=== PATIENT | female | born 1940 | race Caucasian/White ===

== ENCOUNTER 2018-09-18 18:23 | Emergency (ER) | payer MEDICARE, OTHER ==
[2018-09-18] MEDS ORDERED: Sodium Chloride 0.9% 10 ML Syringe FLUSH PRN (18:35)
[2018-09-18] MEDS ORDERED: methylPREDNISolone Sodium Succinate 125 MG/2 ML SDV IVPUSH ONE (18:36)
[2018-09-18] MEDS ORDERED: Albuterol/Ipratropium 3.0-0.5 MG/3 ML Neb Soln NEB ONE (18:39)
--- NOTE | 2018-09-18 19:02 | EDM.PDOC ---
ED HPI GENERAL MEDICAL PROBLEM - General Chief Complaint: Respiratory Problem Stated Complaint: ASTHMA ACTING UP Time Seen by Provider: 09/18/18 18:30 Source of Information: Reports: Patient History Limitations: Reports: No Limitations - History of Present Illness INITIAL COMMENTS - FREE TEXT/NARRATIVE: Pt. presents to ER with complaints of increased shortness of breath. Pt. states that she has a history of asthma. She states that she has been experiencing chest congestion for the past several days. She states that she has not bee experiencing any chest pain. Denies any fever or chills. No nausea, vomiting, or diarrhea. She states that she has not been using her rescue inhaler because she forgot. She states that she has a cough but it is non-productive. Onset: Today Onset Date: 09/18/18 Location: Reports: Chest - Related Data Allergies Allergy/AdvReac Type Severity Reaction Status Date / Time No Known Drug Allergies Allergy Other Verified 09/18/18 19:25 pseudoephedrine HCl Allergy Fainting Verified 09/18/18 19:25 [From Mar-D] aspirin [From Aggrenox] AdvReac Vomiting Verified 09/18/18 19:25 dipyridamole [From Aggrenox] AdvReac Vomiting Verified 09/18/18 19:25 fexofenadine HCl AdvReac Fainting Verified 09/18/18 19:25 [From Mar-D] Home Meds: Home Meds Albuterol Sulfate [Proair Respiclick] 2 puff INH Q4H PRN 02/09/15 [History] Albuterol [Proventil Neb Soln] 2.5 mg NEB Q6HRRT PRN 02/09/15 [History] Aspirin [Ecotrin] 325 mg PO DAILY 02/09/15 [History] Codeine/guaiFENesin [Robitussin AC] 5 ml PO Q4H PRN 02/09/15 [History] Enalapril [Vasotec] 20 mg PO DAILY 02/09/15 [History] Hydrochlorothiazide 25 mg PO DAILY 02/09/15 [History] Loratadine [Claritin] 10 mg PO DAILY PRN 02/09/15 [History] Montelukast [Singulair] 10 mg PO BEDTIME 02/09/15 [History] Multivitamin [Multi-Vitamin Daily] 1 tab PO DAILY 02/09/15 [History] Oxybutynin Chloride [Oxybutynin Chloride ER] 30 mg PO BEDTIME 02/09/15 [History] Simvastatin 10 mg PO BEDTIME 02/09/15 [History] predniSONE [Prednisone] 20 mg PO DAILY 02/09/15 [History] traMADol [Ultram] 50 mg PO Q6H PRN 02/09/15 [History] Acetaminophen 650 mg PO Q4H PRN 02/12/15 [History] Docusate Sodium [Colace] 200 mg PO BEDTIME 02/12/15 [History] Enoxaparin Sodium 40 mg SQ DAILY 02/12/15 [History] LORazepam 0.5 mg PO Q6H PRN 02/12/15 [History] Non-Formulary Medication [NF Drug] 1 puff INH BID 02/12/15 [History] Ondansetron [Zofran ODT] 4 mg PO Q6H PRN 02/12/15 [History] Sennosides [Senna] 8.6 mg PO BID PRN 02/12/15 [History] Sennosides [Senna] 8.6 mg PO BID PRN #0 tablet 02/12/15 [Rx] HYDROmorphone [Dilaudid] 2 mg PO Q8HR PRN #21 tab 02/19/15 [Rx] Past Medical History Respiratory History: Reports: Asthma Other Genitourinary History: overactive bladder Other Musculoskeletal History: dx with bursitis and arthritis to hip - Past Surgical History Other Musculoskeletal Surgeries/Procedures:: left forearm surgery s/p fracture Social & Family History - Tobacco Use Smoking Status *Q: Never Smoker ED ROS GENERAL - Review of Systems Review Of Systems: See Below Constitutional: Reports: No Symptoms HEENT: Reports: No Symptoms Respiratory: Reports: Shortness of Breath, Wheezing Cardiovascular: Reports: No Symptoms Endocrine: Reports: No Symptoms GI/Abdominal: Reports: No Symptoms : Reports: No Symptoms Musculoskeletal: Reports: No Symptoms Skin: Reports: No Symptoms Neurological: Reports: No Symptoms Psychiatric: Reports: No Symptoms Hematologic/Lymphatic: Reports: No Symptoms Immunologic: Reports: No Symptoms ED EXAM, GENERAL - Physical Exam Exam: See Below Exam Limited By: No Limitations General Appearance: Alert, WD/WN, No Apparent Distress Nose: Normal Inspection, Normal Mucosa, No Blood Throat/Mouth: Normal Inspection, Normal Lips, Normal Teeth, Normal Gums, Normal Oropharynx, Normal Voice, No Airway Compromise Head: Atraumatic, Normocephalic Neck: Normal Inspection, Supple, Non-Tender, Full Range of Motion Respiratory/Chest: No Respiratory Distress, Decreased Breath Sounds, Crackles, Wheezing Cardiovascular: Normal Peripheral Pulses, Regular Rate, Rhythm, No Edema, No Gallop, No JVD, No Murmur, No Rub GI/Abdominal: Normal Bowel Sounds, Soft, Non-Tender, No Organomegaly, No Distention, No Abnormal Bruit, No Mass, Pelvis Stable (Female) Exam: Deferred Rectal (Female) Exam: Deferred Back Exam: Normal Inspection, Full Range of Motion Extremities: Normal Inspection, Normal Range of Motion, Non-Tender, No Pedal Edema, Normal Capillary Refill Neurological: Alert, Oriented, CN II-XII Intact, Normal Cognition, Normal Gait, Normal Reflexes, No Motor/Sensory Deficits Psychiatric: Normal Affect, Normal Mood Skin Exam: Warm, Dry, Intact, Normal Color, No Rash Lymphatic: No Adenopathy Course - Vital Signs Last Recorded V/S: Last Vital Signs Temp 37.1 C 09/18/18 18:30 Pulse 92 09/18/18 19:25 Resp 20 09/18/18 19:25 BP 129/84 09/18/18 19:25 Pulse Ox 91 L 09/18/18 19:25 - Orders/Labs/Meds Orders: Active Orders 24 hr Category Date Time Status Peripheral IV Insertion Adult [OM.PC] Routine Oth 09/18/18 18:35 Ordered Labs: Laboratory Tests 09/18/18 09/18/18 09/18/18 Range/Units 19:05 19:05 19:05 WBC 8.1 (4.0-10.0) x10^3/uL RBC 3.97 L (4.00-5.50) x10^6/uL Hgb 14.0 D (12.0-16.0) g/dL Hct 41.6 (33.0-47.0) % MCV 104.8 H D (78.0-93.0) fL MCH 35.3 H (26.0-32.0) pg MCHC 33.7 (32.0-36.0) g/dL RDW Coeff of Andres 12.3 (10.0-15.0) % Plt Count 438 H D (130-400) x10^3/uL Add Manual Diff Yes Neutrophils % (Manual) 49 L (50-80) % Band Neutrophils % 5 (0-6) % Lymphocytes % (Manual) 23 L (25-50) % Monocytes % (Manual) 18 H (2-11) % Eosinophils % (Manual) 3 (0-4) % Basophils % (Manual) 1 (0-1) % Blast Cells % 1 H (0) % Platelet Estimate Adequate Macrocytosis 1+ slight H PT 9.6 L (10.0-12.8) SEC INR 0.8 L (2.0-3.5) Sodium 132 L (136-145) mmol/L Potassium 4.0 (3.5-5.1) mmol/L Chloride 96 L (98-107) mmol/L Carbon Dioxide 27 (21-32) mmol/L Anion Gap 13.0 (10-20) mmol/L BUN 19 H (7-18) mg/dL Creatinine 0.7 (0.55-1.02) mg/dL Est Cr Clr Drug Dosing 50.70 mL/min Estimated GFR (MDRD) > 60 Glucose 83 (74-106) mg/dL Calcium 9.2 (8.5-10.1) mg/dL Corrected Calcium 9.60 (8.5-10.1) mg/dL Total Bilirubin 0.4 (0.2-1.0) mg/dL AST 16 (15-37) U/L ALT 20 (14-59) U/L Alkaline Phosphatase 72 (46-116) U/L Total Protein 7.7 (6.4-8.2) g/dL Albumin 3.5 (3.4-5.0) g/dL Globulin 4.2 Albumin/Globulin Ratio 0.83 Meds: Medications Discontinued Medications Generic Name Dose Route Start Last Admin Trade Name Freq PRN Reason Stop Dose Admin Albuterol/Ipratropium 3 ml 09/18/18 18:39 09/18/18 18:40 Duoneb 3.0-0.5 Mg/3 Ml NEB 09/18/18 18:40 3 ml ONETIME ONE Administration Doxycycline Monohydrate Confirm 09/18/18 19:50 09/18/18 19:56 Take Home: Doxycycline 100 Mg, 4 Tab Pack Administered 09/18/18 19:51 Not Given Dose 1 packet .ROUTE .STK-MED ONE Doxycycline Monohydrate 1 packet 09/18/18 19:37 09/18/18 19:56 Take Home: Doxycycline 100 Mg, 4 Tab Pack PO 09/18/18 19:38 1 packet ONETIME ONE Administration Methylprednisolone Sodium Succinate 125 mg 09/18/18 18:36 09/18/18 18:41 Solu-Medrol IVPUSH 09/18/18 18:37 125 mg ONETIME ONE Administration Sodium Chloride 10 ml 09/18/18 18:35 Saline Flush FLUSH ASDIRECTED PRN Keep Vein Open - Radiology Interpretation Free Text/Narrative:: No obvious infiltrate or acute pathology noted. Departure - Departure Time of Disposition: 19:42 Disposition: Home, Self-Care 01 Clinical Impression: COPD exacerbation, Bronchitis - Discharge Information Instructions: Chronic Obstructive Pulmonary Disease Exacerbation, [id number] Referrals: Min Manrique MD [Primary Care Provider] - Forms: ED Department Discharge Additional Instructions: Albuterol inhaler 2 puffs every 4-6 hours as needed for breathing trouble Prednisone 20mg 2 tabs every day for 5 days Doxycycline 100mg 1 tab twice daily for 10 days Recheck in clinic in 10-14 days, sooner if not gradually improving. - My Orders Last 24 Hours: My Active Orders 09/18/18 18:35 Peripheral IV Insertion Adult [OM.PC] Routine - Assessment/Plan Last 24 Hours: My Active Orders 09/18/18 18:35 Peripheral IV Insertion Adult [OM.PC] Routine Plan: Albuterol inhaler 2 puffs every 4-6 hours as needed for breathing trouble Prednisone 20mg 2 tabs every day for 5 days Doxycycline 100mg 1 tab twice daily for 10 days Recheck in clinic in 10-14 days, sooner if not gradually improving.
--- NOTE | 2018-09-18 19:16 | CR ---
[id number] RAD/RAD Chest PA or AP 1V EXAM: FRONTAL CHEST INDICATION: Shortness of breath. COMPARISON: None. DISCUSSION: Hyperinflation suggests underlying chronic obstructive pulmonary disease. Mild atelectasis or scarring is suggested in the lung bases with no definite infiltrates. The heart is at upper limits of normal for size with borderline central vascular congestion. IMPRESSION: 1. Cardiomegaly with early central vascular congestion suggested. 2. Chronic obstructive pulmonary disease and mild basilar atelectasis or scarring with no definite infiltrates. Todd Monahan MD 09/18/18 0727 Thank you for allowing us to participate in the care of your patient.
[2018-09-18 19:29] VITALS: BP 129/84
[2018-09-18 19:33] LABS: CHLORIDE,CL 96 mmol/L (98-107); SODIUM,NA 132 mmol/L (136-145)
[2018-09-18] MEDS ORDERED: Take Home: Doxycycline 100 MG Tab, 4 Tab Pack PO ONE (19:37)
[2018-09-18] MEDS ORDERED: Take Home: Doxycycline 100 MG Tab, 4 Tab Pack ONE (19:50)
== END 2018-09-18 20:00 | disposition home or self-care (01) ==
LOC: VM.ED 18:23
DX: J44.1 Chronic obstructive pulmonary disease with (acute) exacerbation (principal); J40 Bronchitis, not specified as acute or chronic; Z79.82 Long term (current) use of aspirin; Z79.899 Other long term (current) drug therapy; Z88.8 Allergy status to other drugs, medicaments and biological substances; Z88.6 Allergy status to analgesic agent
CPT/HCPCS: 36415; 71045; 80053; 85025; 85610; 94640; 96374; 99284; 99285; A9270; J2930; J7620-GY

== ENCOUNTER 2019-12-18 11:07 | Emergency (ER) | payer MEDICARE, OTHER ==
[2019-12-18] MEDS ORDERED: Sodium Chloride 0.9% 10 ML Syringe FLUSH PRN (11:19)
[2019-12-18] MEDS ORDERED: fentaNYL 100 MCG/2 ML SDV IVPUSH ONE ×2 (11:20→12:23)
--- NOTE | 2019-12-18 11:26 | EDM.PDOC ---
ED HPI GENERAL MEDICAL PROBLEM - General Time Seen by Provider: 12/18/19 11:14 Source of Information: Reports: Patient History Limitations: Reports: No Limitations - History of Present Illness INITIAL COMMENTS - FREE TEXT/NARRATIVE: Pt. presents to ER with complaints of L hip pain. Pt. states that she was apply Vicks to her at approx. 0800 this AM, and she slipped on a shoe on the floor, falling into her L hip. She denies any weakness, dizziness, chest pain, shortness of breath, lightheadedness or other symptoms prior to this purely mechanical fall. Denies striking her head or trauma elsewhere since the fall. Denies any neck or back pain. Pt. states that she is unable to bear weight on the L leg. She states that the pain is located primarily on the lateral aspect of the hip. Pt. denies any cough, congestion, sore throat, fever, rhinorrhea, diarrhea, or other signs of covid 19. Onset: Today Onset Time: 08:00 Location: Reports: Lower Extremity, Left Left Hip Pain Score (Numeric/FACES): 7 - Related Data Allergies Allergy/AdvReac Type Severity Reaction Status Date / Time pseudoephedrine HCl Allergy Fainting Verified 12/18/19 11:42 [From Mar-D] aspirin [From Aggrenox] AdvReac Vomiting Verified 12/18/19 11:42 dipyridamole [From Aggrenox] AdvReac Vomiting Verified 12/18/19 11:42 fexofenadine HCl AdvReac Fainting Verified 12/18/19 11:42 [From Mar-D] Home Meds: Home Meds Aspirin [Ecotrin] 325 mg PO DAILY 02/09/15 [History] Enalapril [Vasotec] 20 mg PO DAILY 02/09/15 [History] Hydrochlorothiazide 25 mg PO DAILY 02/09/15 [History] Loratadine [Claritin] 10 mg PO DAILY PRN 02/09/15 [History] Montelukast [Singulair] 10 mg PO BEDTIME 02/09/15 [History] Multivitamin [Multi-Vitamin Daily] 1 tab PO DAILY 02/09/15 [History] Simvastatin 10 mg PO BEDTIME 02/09/15 [History] Fluticasone/Salmeterol [Advair HFA 230-21 MCG] 1 - 2 puff IH BID 12/18/19 [History] Past Medical History Respiratory History: Reports: Asthma Other Genitourinary History: overactive bladder Other Musculoskeletal History: dx with bursitis and arthritis to hip - Past Surgical History Other Musculoskeletal Surgeries/Procedures:: left forearm surgery s/p fracture ED ROS GENERAL - Review of Systems Review Of Systems: See Below Constitutional: Reports: No Symptoms HEENT: Reports: No Symptoms Respiratory: Reports: No Symptoms Cardiovascular: Reports: No Symptoms Endocrine: Reports: No Symptoms GI/Abdominal: Reports: No Symptoms : Reports: No Symptoms Musculoskeletal: Reports: Joint Pain (L hip) Skin: Reports: No Symptoms Neurological: Reports: No Symptoms Psychiatric: Reports: No Symptoms Hematologic/Lymphatic: Reports: No Symptoms Immunologic: Reports: No Symptoms ED EXAM, GENERAL - Physical Exam Exam: See Below Exam Limited By: No Limitations General Appearance: Alert, WD/WN, No Apparent Distress Eye Exam: Bilateral Eye: EOMI, PERRL Head: Atraumatic, Normocephalic Neck: Normal Inspection, Supple, Non-Tender, Full Range of Motion Respiratory/Chest: No Respiratory Distress, Lungs Clear, Normal Breath Sounds, No Accessory Muscle Use, Chest Non-Tender Cardiovascular: Normal Peripheral Pulses, Regular Rate, Rhythm, No Edema, No Gallop, No JVD, Systolic Murmur Peripheral Pulses: 3+: Posterior Tibial (L), Posterior Tibial (R), 4+: Radial (L) GI/Abdominal: Soft, Non-Tender, No Mass (Female) Exam: Deferred Rectal (Female) Exam: Deferred Back Exam: Normal Inspection, Full Range of Motion Extremities: Limited Range of Motion, Other (pain with flexion of the L hip. Pt. unable to fully straighten extremity. No obvious crepitus noted.) Neurological: Alert, Oriented, CN II-XII Intact, No Motor/Sensory Deficits Psychiatric: Normal Affect, Normal Mood Skin Exam: Warm, Dry, Intact, Normal Color Lymphatic: No Adenopathy Course - Vital Signs Last Recorded V/S: Last Vital Signs Temp 36.6 C 12/18/19 11:10 Pulse 80 12/18/19 12:58 Resp 16 12/18/19 12:58 BP 142/78 H 12/18/19 12:58 Pulse Ox 97 12/18/19 12:58 - Orders/Labs/Meds Orders: Active Orders 24 hr Category Date Time Status Sodium Chloride 0.9% [Saline Flush] Med 12/18/19 11:19 Active 10 ml FLUSH ASDIRECTED PRN Peripheral IV Insertion Adult [OM.PC] Routine Oth 12/18/19 11:20 Ordered Medication Orders Sodium Chloride (Saline Flush) 10 ml FLUSH ASDIRECTED PRN PRN Reason: Keep Vein Open Last Admin: 12/18/19 11:30 Dose: 10 ml Documented by: CHELSEY Labs: Laboratory Tests 12/18/19 12/18/19 12/18/19 Range/Units 11:30 12:09 12:09 WBC 14.8 H (4.0-10.0) x10^3/uL RBC 3.73 L (4.00-5.50) x10^6/uL Hgb 13.5 (12.0-16.0) g/dL Hct 38.3 (33.0-47.0) % MCV 102.7 H (78.0-93.0) fL MCH 36.2 H (26.0-32.0) pg MCHC 35.2 (32.0-36.0) g/dL RDW Coeff of Andres 12.4 (10.0-15.0) % Plt Count 149 D (130-400) x10^3/uL Add Manual Diff Yes Neutrophils % (Manual) 61 (50-80) % Band Neutrophils % 12 H (0-6) % Lymphocytes % (Manual) 11 L (25-50) % Monocytes % (Manual) 13 H (2-11) % Metamyelocytes % 2 H (0) % Blast Cells % 1 H (0) % Platelet Estimate Adequate PT 10.1 (9.5-12.3) SEC INR 0.9 L (2.0-3.5) Sodium (136-145) mmol/L Potassium (3.5-5.1) mmol/L Chloride (98-107) mmol/L Carbon Dioxide (21-32) mmol/L Anion Gap (10-20) mmol/L BUN (7-18) mg/dL Creatinine (0.55-1.02) mg/dL Est Cr Clr Drug Dosing mL/min Estimated GFR (MDRD) Glucose (74-106) mg/dL Calcium (8.5-10.1) mg/dL Corrected Calcium (8.5-10.1) mg/dL Total Bilirubin (0.2-1.0) mg/dL AST (15-37) U/L ALT (14-59) U/L Alkaline Phosphatase (46-116) U/L Total Protein (6.4-8.2) g/dL Albumin (3.4-5.0) g/dL Globulin Albumin/Globulin Ratio SARS CoV-2 RNA Rapid INDU Negative (NEGATIVE) 12/18/19 Range/Units 12:09 WBC (4.0-10.0) x10^3/uL RBC (4.00-5.50) x10^6/uL Hgb (12.0-16.0) g/dL Hct (33.0-47.0) % MCV (78.0-93.0) fL MCH (26.0-32.0) pg MCHC (32.0-36.0) g/dL RDW Coeff of Andres (10.0-15.0) % Plt Count (130-400) x10^3/uL Add Manual Diff Neutrophils % (Manual) (50-80) % Band Neutrophils % (0-6) % Lymphocytes % (Manual) (25-50) % Monocytes % (Manual) (2-11) % Metamyelocytes % (0) % Blast Cells % (0) % Platelet Estimate PT (9.5-12.3) SEC INR (2.0-3.5) Sodium 136 (136-145) mmol/L Potassium 3.9 (3.5-5.1) mmol/L Chloride 99 (98-107) mmol/L Carbon Dioxide 28 (21-32) mmol/L Anion Gap 12.9 (10-20) mmol/L BUN 17 (7-18) mg/dL Creatinine 0.8 (0.55-1.02) mg/dL Est Cr Clr Drug Dosing 43.62 mL/min Estimated GFR (MDRD) > 60 Glucose 134 H (74-106) mg/dL Calcium 9.1 (8.5-10.1) mg/dL Corrected Calcium 9.42 (8.5-10.1) mg/dL Total Bilirubin 0.5 (0.2-1.0) mg/dL AST 20 (15-37) U/L ALT 22 (14-59) U/L Alkaline Phosphatase 64 (46-116) U/L Total Protein 7.3 (6.4-8.2) g/dL Albumin 3.6 (3.4-5.0) g/dL Globulin 3.7 Albumin/Globulin Ratio 0.97 SARS CoV-2 RNA Rapid INDU (NEGATIVE) Meds: Medications Generic Name Dose Route Start Last Admin Trade Name Freq PRN Reason Stop Dose Admin Sodium Chloride 10 ml 12/18/19 11:19 12/18/19 11:30 Saline Flush FLUSH 10 ml ASDIRECTED PRN Administration Keep Vein Open Discontinued Medications Generic Name Dose Route Start Last Admin Trade Name Freq PRN Reason Stop Dose Admin Fentanyl 50 mcg 12/18/19 11:20 12/18/19 11:29 Sublimaze IVPUSH 12/18/19 11:21 50 mcg ONETIME ONE Administration Fentanyl 50 mcg 12/18/19 12:23 12/18/19 12:28 Sublimaze IVPUSH 12/18/19 12:24 50 mcg ONETIME ONE Administration Departure - Departure Time of Disposition: 13:02 Disposition: DC/Tfer to [facility] 02 Clinical Impression: Intertrochanteric fracture, hip - Discharge Information Referrals: Min Manrique MD [Primary Care Provider] - Forms: ED Department Discharge, Interfacility Transfer RAYRAYALA Sepsis Event Note (ED) - Focused Exam Vital Signs: Vital Signs Temp Pulse Resp BP Pulse Ox 12/18/19 12:58 80 16 142/78 H 97 12/18/19 11:10 36.6 C 85 16 152/84 H 95 - Problem List Review Problem List Initiated/Reviewed/Updated: Yes - My Orders Last 24 Hours: My Active Orders 12/18/19 11:19 Sodium Chloride 0.9% [Saline Flush] 10 ml FLUSH ASDIRECTED PRN 12/18/19 11:20 Peripheral IV Insertion Adult [OM.PC] Routine - Assessment/Plan Last 24 Hours: My Active Orders 12/18/19 11:19 Sodium Chloride 0.9% [Saline Flush] 10 ml FLUSH ASDIRECTED PRN 12/18/19 11:20 Peripheral IV Insertion Adult [OM.PC] Routine Plan: Pt. accepted by Dr. Hudson at [facility] [place] for [place]. EMTLA form was filled out. Pt. pain was well controlled with doses of IV fentanyl. Discussed findings with patient and family. Pt. will be transported via ground ambulance. All questions were answered.
[2019-12-18 12:37] LABS: ANION GAP 12.9 mmol/L (10-20); CHLORIDE,CL 99 mmol/L (98-107); SODIUM,NA 136 mmol/L (136-145)
--- NOTE | 2019-12-18 12:41 | CR ---
[id number] RAD/RAD Pelvis 1-2V EXAM: SINGLE VIEW PELVIS. INDICATION: FALL, LEFT HIP PAIN. COMPARISON: None. DISCUSSION: Acute multi fragmentary intertrochanteric left femoral neck fracture. There is impaction and displacement. No dislocation. Advanced degenerative changes of the femoral acetabular joint. IMPRESSION: 1. As above. Sonny Arguello DO 12/18/19 6930 Thank you for allowing us to participate in the care of your patient.
[2019-12-18 12:59] VITALS: BP 142/78; PULSE 80
[2019-12-18] MEDS ORDERED: HYDROmorphone 1 MG/ML Syringe IVPUSH ONE (13:06)
== END 2019-12-18 13:33 | disposition short-term general hospital (02) ==
LOC: VM.ED 11:07
DX: S72.142A Displaced intertrochanteric fracture of left femur, initial encounter for closed fracture (principal); J45.909 Unspecified asthma, uncomplicated; Z79.899 Other long term (current) drug therapy; Z20.828 Contact with and (suspected) exposure to other viral communicable diseases; Z88.8 Allergy status to other drugs, medicaments and biological substances; Z88.6 Allergy status to analgesic agent; W01.0XXA Fall on same level from slipping, tripping and stumbling without subsequent striking against object, initial encounter
CPT/HCPCS: 36415; 72170; 80053; 85025; 85610; 96374; 96375; 96376; 99284; 99285; J1170; J3010; U0002

== ENCOUNTER 2019-12-21 09:28 | Inpatient (IN) | payer MEDICARE, OTHER ==
[2019-12-21] MEDS: Acetaminophen 325 MG Tab PO SCH ×2 (14:19→20:13)
--- NOTE | 2019-12-21 15:32 | CR ---
[id number] RAD/RAD Chest PA or AP 1V EXAM: RAD Chest PA or AP 1V INDICATION: COUGH. COMPARISON: April 07, 2019. DISCUSSION: Cardiomediastinal silhouette is normal in size and contour. No infiltrate, effusion, pneumothorax, or edema. Pulmonary hyperinflation. Chronic scarring at the lung bases bilaterally. IMPRESSION: No acute cardiopulmonary abnormality. Sonny Arguello DO 12/21/19 1531 Thank you for allowing us to participate in the care of your patient.
[2019-12-21] MEDS ORDERED: Cyclobenzaprine 10 MG Tab PO PRN (16:45)
[2019-12-21] MEDS: Albuterol 0.083% 2.5 MG/3 ML Neb Soln INH SCH ×2 (17:58→20:13)
[2019-12-21] MEDS: Acetaminophen/HYDROcodone 325-5 MG Tab PO PRN (18:23)
[2019-12-21] MEDS: Pregabalin 50 MG Cap PO SCH (20:13)
[2019-12-21] MEDS: Simvastatin 10 MG Tab PO SCH (20:13)
[2019-12-21] MEDS: Montelukast 10 MG Tab PO SCH (20:14)
[2019-12-21] MEDS: Fluticasone-Salmeterol 232-14 MCG Powder Inhalent INH SCH (20:14)
--- NOTE | 2019-12-21 20:18 | HP ---
CHIEF COMPLAINT: A hip fracture. HISTORY OF PRESENT ILLNESS: This is an 79-year-old female who had a mechanical fall at home on the . She was admitted to [facility] and underwent a left intertrochanteric femur fracture, intramedullary nailing on 12/18. The patient's hemoglobin was around 12 preop. She had an uneventful postop course. Yesterday, her hemoglobin was 9.2 and today 7.2. She has not felt lightheaded or dizzy. She has not had any shortness of breath. She has had a bowel movement yesterday. She is urinating okay. Her pain is under good control. She thought she was taking pain pills, but on review it looks like just Tylenol today. The patient does have a history of aortic stenosis, which was moderate by echo 1 year ago, and hypertension. ALLERGIES: Aggrenox, GI upset with the aspirin; Mar, her blood pressure dropped; codeine with aspirin, nausea and vomiting; and mirabegron. MEDICATION LIST: Reviewed. Currently, she is on Lyrica 50 mg twice daily, a new med after hip surgery; hydrocodone as needed for pain; iron 325 b.i.d., new med; Colace 100 mg as needed for constipation; Flexeril 10 mg 3 times a day as needed for muscle spasm; albuterol neb 4 times a day as needed for cough; aspirin 325 daily for DVT prophylaxis; Zocor 10 mg daily; Advair 2 puffs 2 times a day; hydrochlorothiazide 25 mg daily; Singulair 10 mg daily; and multivitamin daily. PAST MEDICAL HISTORY: Includes asthma, severe, with COPD reported, aortic stenosis, and atherosclerosis of the aorta, degenerative joint disease, diastolic dysfunction, history of Colles fracture, solitary pulmonary nodule, recurrent herpes simplex, hyperlipidemia, essential hypertension, impaired fasting glucose, obesity, pelvic floor dysfunction, postherpetic neuralgia, sciatica. PAST SURGICAL HISTORY: She has had cataracts. She has had a T and A. She has had hysterectomy. She has had the hip nailing. SOCIAL HISTORY: She is a retired nurse. She is . Lives at home with her , 5 children. She is a never smoker. Nondrinker. FAMILY HISTORY: Both parents are . Father had stomach cancer. REVIEW OF SYSTEMS: General: There have been no weight changes. She had generally been feeling well. HEENT: No sore throat. No trouble swallowing. Cardiac: No chest pain, no palpitations, no syncope. Respiratory: No cough, no shortness of breath. Abdomen: No nausea or vomiting. Musculoskeletal: She has had some left hip pain, but more so when she is up and moving. : No burning with urination. Otherwise, all systems reviewed and found to be negative unless otherwise stated. PHYSICAL EXAMINATION: Vital Signs: On admission to the hospital, her temperature 97.5, pulse 100, blood pressure 123/60, respiratory rate 16, O2 of 95% on room air. General: She is in no acute distress. Heart: Regular rate and rhythm with systolic murmur noted. Lungs: Sounds are clear to auscultation bilaterally without crackles or wheezes. Abdomen: Has positive bowel sounds. It is soft, nondistended. Extremities: Nontender. Extremities warm and dry. The left hip is examined. The incision had a little bit of drainage, was just blood. Madelin in place. There is some mild swelling in the thigh, but no redness or warmth. Mild swelling in the calf, but it is nontender. Otherwise, right leg has no edema. Mental Status: She is alert and oriented x3. DIAGNOSTIC DATA: A chest x-ray done today did show no acute infiltrates or fluid. ASSESSMENT: 1. Left hip intertrochanteric fracture status post intramedullary nailing on postoperative day #2. 2. The patient doing well in terms of pain control. We will continue with the same. 3. Postoperative acute blood loss anemia. We will repeat a hemoglobin tomorrow. We will transfuse less than 7, especially given her underlying aortic stenosis. Currently, she is asymptomatic. 4. Moderate aortic stenosis. She is asymptomatic. 5. Essential hypertension. Blood pressures are controlled. I am going to hold off on her hydrochlorothiazide, but restart if swelling becomes an issue. 6. Asthma. She is on her inhalers. PLAN: The patient is admitted for swing bed cares. We will get her up and working with therapies. Home when able. We will monitor lab work. She had some mild hyponatremia. Sodium of 132 yesterday. This may improve with the holding of hydrochlorothiazide. We will repeat tomorrow. For DVT prophylaxis, the patient is currently only on aspirin. We will have the SCDs and AMA stockings. Likely once her hemoglobin stabilizes, she will be on Lovenox treatment. Staple removal around 01/01. The patient may already be home by then. MKA: 12/21/2019 18:19:11 MODL: 12/21/2019 20:09:41 /[id number]
[2019-12-22] MEDS: Acetaminophen/HYDROcodone 325-5 MG Tab PO PRN ×2 (02:42→18:26)
[2019-12-22] MEDS: Albuterol 0.083% 2.5 MG/3 ML Neb Soln INH SCH ×4 (06:31→20:49)
[2019-12-22 07:16] LABS: ANION GAP 9.6 mmol/L (10-20); CHLORIDE,CL 99 mmol/L (98-107); SODIUM,NA 134 mmol/L (136-145)
[2019-12-22] MEDS: Fluticasone-Salmeterol 232-14 MCG Powder Inhalent INH SCH ×2 (08:48→20:45)
[2019-12-22] MEDS: Pregabalin 50 MG Cap PO SCH ×2 (08:48→21:33)
[2019-12-22] MEDS: Aspirin 325 MG Tab.EC PO SCH (08:48)
[2019-12-22] MEDS: Acetaminophen 325 MG Tab PO SCH ×3 (08:49→21:32)
[2019-12-22] MEDS: Multivitamins with Iron/Calcium/Folic Acid/Minerals Tab PO SCH (08:49)
[2019-12-22] MEDS: Polyethylene Glycol 3350 Powder 17 GM Packet PO SCH (11:12)
[2019-12-22] MEDS: Docusate Sodium 100 MG Cap PO PRN (11:12)
[2019-12-22] MEDS ORDERED: diphenhydrAMINE 25 MG Cap PO ONE (12:01)
--- NOTE | 2019-12-22 20:48 | PN ---
Progress Note for LARISSA BAKER Date: 12/22/2019 Room #: VM.215 SUBJECTIVE: An 79-year-old seen today for followup after a left hip fracture. The patient's hemoglobin did drop from 7.2 to 6.9. She has been up, sitting on the edge of the bed. She has not been short of breath or had any chest pain. She has been slightly tachycardic with her heart rates. Her pain is under good control. She did get a [place] around 2 a.m. She does have underlying asthma. She continues to cough. She feels it is related to the asthma. Her chest x-ray was okay. She had COVID testing prior to her transfer here. She has not had any fever, chills, or chest pain. OBJECTIVE: Vital Signs: Her temperature is 98, pulse 98, blood pressure 141/64, respiratory rate 18, and O2 96% on room air. General: She is in no acute distress. Heart: Regular rate and rhythm. S1, S2 with a systolic murmur. Lungs: Sounds are clear to auscultation bilaterally without crackles or wheezes. Abdomen: Has positive bowel sounds. It is nontender. Extremities: Warm and dry. No edema. Mental Status: She is alert and orientated x3. LABORATORY WORK: Again, shows hemoglobin down to 6.9. Sodium 134, actually up from previous. Creatinine 0.7, glucose 112, and calcium 8.1. ASSESSMENT AND PLAN: 1. Acute blood loss anemia after a hip surgery. We will transfuse the patient 1 unit of packed red blood cells today. She is agreeable. 2. Left hip intertrochanteric fracture, postoperative day #3. She will be up, working with Therapy. We will continue pain control. We will add daily MiraLAX for her bowels. 3. Moderate aortic stenosis. 4. Essential hypertension. 5. Asthma. PLAN: The patient will continue on swing bed cares. We will give her 1 unit of blood today. We will reassess hemoglobin tomorrow and again Wednesday. We will continue aspirin for DVT prophylaxis, but if hemoglobin comes up and remains stable, I will probably give her Lovenox to provide better DVT prophylaxis coverage. For now, she is on SCDs and stockings. MKA: 12/22/2019 10:45:48 MODL: 12/22/2019 20:39:17 /[id number]
[2019-12-22] MEDS: Simvastatin 10 MG Tab PO SCH (20:49)
[2019-12-22] MEDS: Montelukast 10 MG Tab PO SCH (21:33)
[2019-12-23] MEDS: Albuterol 0.083% 2.5 MG/3 ML Neb Soln INH SCH ×4 (06:00→20:17)
--- NOTE | 2019-12-23 08:50 | PCM.SN.2 ---
- Free Text/Narrative Note: Hgb up to 9 and stable after transfusion switch ASA to Lovenox for DVT prophylaxis. Recheck CBC Wednesday.
[2019-12-23] MEDS: Fluticasone-Salmeterol 232-14 MCG Powder Inhalent INH SCH ×2 (09:41→20:16)
[2019-12-23] MEDS: Acetaminophen 325 MG Tab PO SCH ×3 (09:41→21:04)
[2019-12-23] MEDS: Pregabalin 50 MG Cap PO SCH ×2 (09:42→20:16)
[2019-12-23] MEDS: Polyethylene Glycol 3350 Powder 17 GM Packet PO SCH (09:42)
[2019-12-23] MEDS: Multivitamins with Iron/Calcium/Folic Acid/Minerals Tab PO SCH (09:42)
[2019-12-23] MEDS: Enoxaparin 40 MG/0.4 ML Syringe SUBCUT SCH (09:45)
[2019-12-23] MEDS: Aspirin 325 MG Tab.EC PO SCH (10:05)
[2019-12-23] MEDS ORDERED: Furosemide 20 MG/2 ML VIAL IV ONE (15:19)
[2019-12-23] MEDS: Simvastatin 10 MG Tab PO SCH (20:16)
[2019-12-23] MEDS: Montelukast 10 MG Tab PO SCH (20:16)
[2019-12-23] MEDS: Acetaminophen 325 MG Tab PO PRN (20:17)
[2019-12-24] MEDS: Albuterol 0.083% 2.5 MG/3 ML Neb Soln INH SCH ×4 (06:10→21:05)
[2019-12-24] MEDS: Acetaminophen 325 MG Tab PO SCH ×3 (07:50→21:02)
[2019-12-24] MEDS: Multivitamins with Iron/Calcium/Folic Acid/Minerals Tab PO SCH (07:50)
[2019-12-24] MEDS: Pregabalin 50 MG Cap PO SCH ×2 (07:50→21:01)
[2019-12-24] MEDS: Fluticasone-Salmeterol 232-14 MCG Powder Inhalent INH SCH ×2 (07:50→21:03)
[2019-12-24] MEDS: Polyethylene Glycol 3350 Powder 17 GM Packet PO SCH (07:51)
--- NOTE | 2019-12-24 08:43 | PCM.SN.2 ---
- Free Text/Narrative Note: on 12/22/29 pt noted to have crackles on lung base. She had transfusion day prior with no diurectics afterward. She does have asthma, but was not wheezing. Will give her lasix 20 mg IV. on 12/24/19 nurses noted pt has greatly improved and no wheezing is noted by them.
[2019-12-24] MEDS: Enoxaparin 40 MG/0.4 ML Syringe SUBCUT SCH (09:21)
[2019-12-24] MEDS: Montelukast 10 MG Tab PO SCH (21:02)
[2019-12-24] MEDS: Simvastatin 10 MG Tab PO SCH (21:02)
[2019-12-25 07:13] LABS: CHLORIDE,CL 99 mmol/L (98-107); SODIUM,NA 132 mmol/L (136-145)
[2019-12-25 07:15] LABS: ANION GAP 7.6 mmol/L (10-20)
[2019-12-25] MEDS: Fluticasone-Salmeterol 232-14 MCG Powder Inhalent INH SCH ×2 (08:55→20:16)
[2019-12-25] MEDS: Enoxaparin 40 MG/0.4 ML Syringe SUBCUT SCH (08:55)
[2019-12-25] MEDS: Polyethylene Glycol 3350 Powder 17 GM Packet PO SCH (08:55)
[2019-12-25] MEDS: Acetaminophen 325 MG Tab PO SCH ×3 (08:57→20:15)
[2019-12-25] MEDS: Multivitamins with Iron/Calcium/Folic Acid/Minerals Tab PO SCH (08:57)
[2019-12-25] MEDS: Pregabalin 50 MG Cap PO SCH ×2 (08:58→20:14)
[2019-12-25] MEDS: Albuterol 0.083% 2.5 MG/3 ML Neb Soln INH SCH ×4 (11:46→20:15)
[2019-12-25] MEDS: Montelukast 10 MG Tab PO SCH (20:14)
[2019-12-25] MEDS: Simvastatin 10 MG Tab PO SCH (20:14)
[2019-12-26] MEDS: Albuterol 0.083% 2.5 MG/3 ML Neb Soln INH SCH ×4 (06:17→20:54)
[2019-12-26] MEDS: Enoxaparin 40 MG/0.4 ML Syringe SUBCUT SCH (08:59)
[2019-12-26] MEDS: Acetaminophen 325 MG Tab PO SCH ×3 (09:01→20:46)
[2019-12-26] MEDS: Multivitamins with Iron/Calcium/Folic Acid/Minerals Tab PO SCH (09:01)
[2019-12-26] MEDS: Fluticasone-Salmeterol 232-14 MCG Powder Inhalent INH SCH ×2 (09:02→20:48)
[2019-12-26] MEDS: Polyethylene Glycol 3350 Powder 17 GM Packet PO SCH (09:02)
[2019-12-26] MEDS: Pregabalin 50 MG Cap PO SCH ×2 (09:02→20:47)
[2019-12-26] MEDS: Sulfamethoxazole/Trimethoprim 800-160 MG Tab PO SCH ×2 (15:19→20:47)
--- NOTE | 2019-12-26 16:01 | PN ---
Progress Note for LARISSA BAKER Date: 12/26/2019 Room #: VM.215 SUBJECTIVE: This is an 79-year-old on swing bed, recovering after a left femur fracture. She did require blood transfusion on 12/21. She has otherwise been feeling well, just sleepy. She states she is no longer coughing or short of breath. She does have underlying asthma. She was having some incontinence of urine and nursing asked for a UA. When I spoke with her, she said that there has been a little bit of burning. Her urine was positive with 40 to 50 wbc's. OBJECTIVE: Vital Signs: Her temperature 98.1, pulse 103, blood pressure 126/61, respiratory rate 18, O2 of 91% on room air. General: She is in no acute distress. Heart: Regular rate and rhythm with systolic murmur. Lungs: Sounds are clear to auscultation bilaterally without crackles or wheezes. Abdomen: Nondistended, nontender. Extremities: Warm and dry. Just trace edema bilaterally. Her incisions were not inspected today. She has her support stockings in place. LABORATORY WORK: Yesterday did show sodium 132, otherwise potassium 3.6, BUN 11. White count 14.4, hemoglobin 8.6, platelets 503. ASSESSMENT AND PLAN: 1. Left femur fracture, doing well, working with therapies. 2. Acute blood loss anemia after surgery. Hemoglobin is stable after blood transfusion. We will repeat lab work tomorrow. 3. Urinary tract infection. We will order Bactrim. 4. Moderate aortic stenosis. 5. Asthma with mild hypoxia. We will continue to encourage incentive spirometry. 6. Essential hypertension, controlled. 7. Mild hyponatremia. The plan at this point; the patient will continue on swing bed cares with therapies. We will repeat blood work tomorrow. She did get a dose of Lasix over the weekend. We may need to restart, but currently does not appear overly volume overloaded and blood pressures are on the lower side. We will continue to monitor closely. MKA: 12/26/2019 15:28:45 MODL: 12/26/2019 15:55:12 /[id number]
[2019-12-26] MEDS: Montelukast 10 MG Tab PO SCH (20:47)
[2019-12-26] MEDS: Simvastatin 10 MG Tab PO SCH (20:47)
[2019-12-26] MEDS: Acetaminophen/HYDROcodone 325-5 MG Tab PO PRN (23:42)
[2019-12-27] MEDS: Albuterol 0.083% 2.5 MG/3 ML Neb Soln INH SCH ×4 (06:01→19:52)
--- NOTE | 2019-12-27 06:23 | PCM.SN.2 ---
- Free Text/Narrative Note: Patient has been more sleepy. Lyrica is new for pain after surgery will decrease to 25 mg BID. This may also help with edema. Lab planned today. She is uses Hydrocodone very infrequently did take one last night. Mostly on tylenol for pain. Flexeril also d/c as she hasn't need it for days.
[2019-12-27 06:58] LABS: CHLORIDE,CL 100 mmol/L (98-107); SODIUM,NA 134 mmol/L (136-145)
[2019-12-27 06:59] LABS: ANION GAP 11.2 mmol/L (10-20)
[2019-12-27] MEDS ORDERED: Pregabalin 25 MG Cap PO SCH (08:00)
[2019-12-27] MEDS: Fluticasone-Salmeterol 232-14 MCG Powder Inhalent INH SCH ×2 (08:48→19:52)
[2019-12-27] MEDS: Acetaminophen 325 MG Tab PO SCH ×3 (08:48→19:51)
[2019-12-27] MEDS: Enoxaparin 40 MG/0.4 ML Syringe SUBCUT SCH (08:48)
[2019-12-27] MEDS: Polyethylene Glycol 3350 Powder 17 GM Packet PO SCH (08:48)
[2019-12-27] MEDS: Multivitamins with Iron/Calcium/Folic Acid/Minerals Tab PO SCH (08:49)
[2019-12-27] MEDS: Sulfamethoxazole/Trimethoprim 800-160 MG Tab PO SCH ×2 (08:50→19:52)
[2019-12-27] MEDS: Pregabalin 25 MG Cap PO SCH (19:52)
[2019-12-27] MEDS: Simvastatin 10 MG Tab PO SCH (19:52)
[2019-12-27] MEDS: Montelukast 10 MG Tab PO SCH (19:52)
[2019-12-28] MEDS: Acetaminophen/HYDROcodone 325-5 MG Tab PO PRN ×2 (05:03→18:00)
[2019-12-28] MEDS: Albuterol 0.083% 2.5 MG/3 ML Neb Soln INH SCH ×4 (06:09→19:53)
[2019-12-28] MEDS: Enoxaparin 40 MG/0.4 ML Syringe SUBCUT SCH (10:05)
[2019-12-28] MEDS: Sulfamethoxazole/Trimethoprim 800-160 MG Tab PO SCH ×2 (10:06→19:51)
[2019-12-28] MEDS: Multivitamins with Iron/Calcium/Folic Acid/Minerals Tab PO SCH (10:06)
[2019-12-28] MEDS: Acetaminophen 325 MG Tab PO SCH ×3 (10:06→19:52)
[2019-12-28] MEDS: Polyethylene Glycol 3350 Powder 17 GM Packet PO SCH (10:07)
[2019-12-28] MEDS: Fluticasone-Salmeterol 232-14 MCG Powder Inhalent INH SCH ×2 (10:08→19:51)
[2019-12-28] MEDS ORDERED: Polyethylene Glycol 3350 Powder 17 GM Packet PO PRN (18:39)
--- NOTE | 2019-12-28 19:04 | PN ---
Progress Note for LARISSA BAKER Date: 12/28/2019 Room #: VM.215 SUBJECTIVE: This is an 79-year-old on swing bed after a left femur fracture. The patient is still having a lot of hip pain. Her Lyrica was decreased at bedtime because she was so sleepy during the day. She did get a pain pill around 6 p.m. She has normally been getting one only at bedtime. Otherwise, she feels her breathing is good. Her coughing is better. Her bladder symptoms have improved slightly on Bactrim. She has been afebrile. OBJECTIVE: Vital Signs: Her temperature is 98.7, pulse 100, blood pressure 124/55, respiratory rate 18, and O2 of 93% on room air. General: She is in no acute distress. Heart: Regular rate and rhythm with murmur. Lungs: Sounds are clear to auscultation bilaterally without crackles or wheezes. Abdomen: Nondistended, nontender. Extremities: Warm and dry. She has some trace edema over that left leg. Right leg is normal. Her thigh is though soft. Psychiatric: Her mental status, she is alert, she is orientated x3. ASSESSMENT AND PLAN: 1. Urinary tract infection with Escherichia coli. It is sensitive to Bactrim. She will complete her course. If symptoms do not clear up, we will repeat a UA. 2. Left hip fracture. Continue Lovenox for deep venous thrombosis prophylaxis. Continue PT. 3. Acute blood loss anemia after surgery. She has had 1 unit of packed red blood cells. Blood work is due tomorrow. 4. Moderate aortic stenosis. 5. Asthma. 6. Essential hypertension, controlled. PLAN: The patient will continue on swing bed cares. Lab work is due tomorrow. We have tapered down on Lyrica just at bedtime due to somnolence during the day. Hydrocodone remains available. She is on Tylenol p.r.n. She is having good bowel movements. We will change the MiraLAX to p.r.n. MKA: 12/28/2019 18:39:39 MODL: 12/28/2019 18:57:27 /[id number]
[2019-12-28] MEDS: Montelukast 10 MG Tab PO SCH (19:51)
[2019-12-28] MEDS: Simvastatin 10 MG Tab PO SCH (19:52)
[2019-12-28] MEDS: Pregabalin 25 MG Cap PO SCH (19:52)
[2019-12-29] MEDS: Acetaminophen/HYDROcodone 325-5 MG Tab PO PRN ×2 (05:13→12:11)
[2019-12-29 06:54] LABS: ANION GAP 10.5 mmol/L (10-20); CHLORIDE,CL 102 mmol/L (98-107); SODIUM,NA 134 mmol/L (136-145)
[2019-12-29] MEDS: Albuterol 0.083% 2.5 MG/3 ML Neb Soln INH SCH ×4 (07:18→19:50)
[2019-12-29] MEDS: Fluticasone-Salmeterol 232-14 MCG Powder Inhalent INH SCH ×2 (09:05→19:47)
[2019-12-29] MEDS: Enoxaparin 40 MG/0.4 ML Syringe SUBCUT SCH (09:05)
[2019-12-29] MEDS: Acetaminophen 325 MG Tab PO SCH ×3 (09:06→19:48)
[2019-12-29] MEDS: Multivitamins with Iron/Calcium/Folic Acid/Minerals Tab PO SCH (09:06)
[2019-12-29] MEDS: Loratadine 10 MG Tab PO PRN (09:08)
[2019-12-29] MEDS: Pregabalin 25 MG Cap PO SCH (19:50)
[2019-12-29] MEDS: Montelukast 10 MG Tab PO SCH (19:50)
[2019-12-29] MEDS: Simvastatin 10 MG Tab PO SCH (19:50)
[2019-12-30] MEDS: Albuterol 0.083% 2.5 MG/3 ML Neb Soln INH SCH ×4 (07:17→19:49)
[2019-12-30] MEDS: Fluticasone-Salmeterol 232-14 MCG Powder Inhalent INH SCH ×2 (08:38→19:50)
[2019-12-30] MEDS: Enoxaparin 40 MG/0.4 ML Syringe SUBCUT SCH (08:39)
[2019-12-30] MEDS: Docusate Sodium 100 MG Cap PO PRN (08:39)
[2019-12-30] MEDS: Acetaminophen 325 MG Tab PO SCH ×3 (08:39→19:50)
[2019-12-30] MEDS: Loratadine 10 MG Tab PO PRN (08:39)
[2019-12-30] MEDS: Multivitamins with Iron/Calcium/Folic Acid/Minerals Tab PO SCH ×2 (08:40→10:14)
[2019-12-30] MEDS: Acetaminophen/HYDROcodone 325-5 MG Tab PO PRN ×2 (10:13→15:33)
[2019-12-30] MEDS: Pregabalin 25 MG Cap PO SCH (19:51)
[2019-12-30] MEDS: Montelukast 10 MG Tab PO SCH (19:51)
[2019-12-30] MEDS: Simvastatin 10 MG Tab PO SCH (19:51)
[2019-12-31] MEDS: Acetaminophen/HYDROcodone 325-5 MG Tab PO PRN ×2 (03:28→08:22)
[2019-12-31] MEDS: Albuterol 0.083% 2.5 MG/3 ML Neb Soln INH SCH ×4 (06:56→19:46)
[2019-12-31] MEDS: Enoxaparin 40 MG/0.4 ML Syringe SUBCUT SCH (08:21)
[2019-12-31] MEDS: Fluticasone-Salmeterol 232-14 MCG Powder Inhalent INH SCH ×2 (08:21→19:49)
[2019-12-31] MEDS: Loratadine 10 MG Tab PO PRN (08:22)
[2019-12-31] MEDS: Acetaminophen 325 MG Tab PO SCH ×3 (08:23→19:46)
[2019-12-31] MEDS: Multivitamins with Iron/Calcium/Folic Acid/Minerals Tab PO SCH (08:23)
[2019-12-31] MEDS: Docusate Sodium 100 MG Cap PO PRN (10:43)
[2019-12-31] MEDS: Simvastatin 10 MG Tab PO SCH (19:46)
[2019-12-31] MEDS: Pregabalin 25 MG Cap PO SCH (19:46)
[2019-12-31] MEDS: Montelukast 10 MG Tab PO SCH (19:46)
[2020-01-01] MEDS: Albuterol 0.083% 2.5 MG/3 ML Neb Soln INH SCH ×4 (07:49→19:47)
[2020-01-01] MEDS: Fluticasone-Salmeterol 232-14 MCG Powder Inhalent INH SCH ×2 (07:49→20:18)
[2020-01-01] MEDS: Acetaminophen 325 MG Tab PO SCH ×3 (07:49→19:47)
[2020-01-01] MEDS: Multivitamins with Iron/Calcium/Folic Acid/Minerals Tab PO SCH (07:49)
[2020-01-01] MEDS: Enoxaparin 40 MG/0.4 ML Syringe SUBCUT SCH (09:04)
[2020-01-01] MEDS: Acetaminophen/HYDROcodone 325-5 MG Tab PO PRN (13:01)
[2020-01-01] MEDS: Montelukast 10 MG Tab PO SCH (19:46)
[2020-01-01] MEDS: Pregabalin 25 MG Cap PO SCH (19:46)
[2020-01-01] MEDS: Simvastatin 10 MG Tab PO SCH (19:47)
[2020-01-02 06:59] LABS: CHLORIDE,CL 101 mmol/L (98-107); SODIUM,NA 134 mmol/L (136-145)
[2020-01-02 07:00] LABS: ANION GAP 10.3 mmol/L (10-20)
[2020-01-02] MEDS: Albuterol 0.083% 2.5 MG/3 ML Neb Soln INH SCH ×4 (07:03→19:34)
[2020-01-02] MEDS: Acetaminophen 325 MG Tab PO SCH ×3 (08:04→19:33)
[2020-01-02] MEDS: Fluticasone-Salmeterol 232-14 MCG Powder Inhalent INH SCH ×2 (08:05→19:36)
[2020-01-02] MEDS: Multivitamins with Iron/Calcium/Folic Acid/Minerals Tab PO SCH (08:05)
[2020-01-02] MEDS: Enoxaparin 40 MG/0.4 ML Syringe SUBCUT SCH (08:06)
--- NOTE | 2020-01-02 13:27 | PN ---
Progress Note for LARISSA BAKER Date: 01/02/2020 Room #: VM.215 SUBJECTIVE: This is an 79-year-old recovering after a left hip fracture status post surgery. She was to see her Orthopedics yesterday in [place]. She did have some followup x-rays that were showing her to have more separation below the greater trochanter laterally. This is sort of the area where she is having pain. They do feel that she needs to continue with just toe-touch weightbearing and the importance of limiting abduction to no further than 25 degrees and flexion to be limited as well, but this should heal on its own with callus. The patient did take a pain pill after she returned from [place], she has been using about 1 per day. She is, otherwise, feeling well with no chest pain. No cough. No shortness of breath. No edema. Her original surgery was on the and closed displaced intertrochanteric fracture of the left femur. OBJECTIVE: Vital Signs: Today, her temperature 98, pulse 63, blood pressure 122/63, respiratory rate 18, and O2 of 93% on room air; yesterday, it was 95. I also noted she was slightly tachycardic when she was seen over in the [facility] of about 111. General: She is in no acute distress. Heart: Regular rate and rhythm with systolic murmur. Lungs: Sounds are clear to auscultation bilaterally without crackles or wheezes. Abdomen: Nondistended. Extremities: Warm and dry. No edema. Mental Status: Alert and orientated x3. LABORATORY DATA: Lab work does show white count normal to 8, hemoglobin 10.1, platelets 566. Sodium 134, potassium 4.3, chloride 101, bicarb 27, BUN 15, creatinine 0.6, glucose 96, calcium 8.8. ASSESSMENT AND PLAN: 1. Left hip intertrochanteric fracture of the left femur. Postoperative since 12/18. Weightbearing restrictions and activity per Ortho. Pain control, may continue with limited hydrocodone and using ice. She is also on scheduled Tylenol, and Lyrica was decreased to just bedtime due to sleepiness. 2. Deep vein thrombosis prophylaxis. She should continue Lovenox through around 01/17. 3. Asthma, seems to be well controlled. 4. Essential hypertension, controlled. She is on her Vasotec. Hydrochlorothiazide is being held due to her hyponatremia. 5. Hyponatremia, mild. We will repeat lab work next week. 6. Acute blood loss anemia after surgery. She did get 1 unit. Hemoglobin is back up to 10. 7. Moderate aortic stenosis. 8. Questionable forgetfulness mentioned by nursing. We will get an OT for cognitive eval. The patient is answering questions appropriately for me, but this is the first time I am meeting her. I have not known her in the past. PLAN: The patient will continue swing bed cares. We will continue with pain control. We will continue with her bowel regimen. We will repeat lab work next week. MKA: 01/02/2020 11:10:21 MODL: 01/02/2020 11:50:45 /[id number]
[2020-01-02] MEDS: Montelukast 10 MG Tab PO SCH (19:33)
[2020-01-02] MEDS: Pregabalin 25 MG Cap PO SCH (19:33)
[2020-01-02] MEDS: Simvastatin 10 MG Tab PO SCH (19:33)
[2020-01-03] MEDS: Acetaminophen/HYDROcodone 325-5 MG Tab PO PRN ×2 (06:21→12:08)
[2020-01-03] MEDS: Albuterol 0.083% 2.5 MG/3 ML Neb Soln INH SCH ×4 (06:57→19:57)
[2020-01-03] MEDS: Fluticasone-Salmeterol 232-14 MCG Powder Inhalent INH SCH ×2 (08:24→19:53)
[2020-01-03] MEDS: Acetaminophen 325 MG Tab PO SCH ×3 (08:25→19:53)
[2020-01-03] MEDS: Multivitamins with Iron/Calcium/Folic Acid/Minerals Tab PO SCH (08:26)
[2020-01-03] MEDS: Enoxaparin 40 MG/0.4 ML Syringe SUBCUT SCH (12:06)
[2020-01-03] MEDS: Acetaminophen 325 MG Tab PO PRN (13:48)
[2020-01-03] MEDS: Simvastatin 10 MG Tab PO SCH (19:53)
[2020-01-03] MEDS: Pregabalin 25 MG Cap PO SCH (19:53)
[2020-01-03] MEDS: Montelukast 10 MG Tab PO SCH (19:53)
[2020-01-04] MEDS: Albuterol 0.083% 2.5 MG/3 ML Neb Soln INH SCH ×4 (06:59→19:57)
[2020-01-04] MEDS: Acetaminophen 325 MG Tab PO SCH ×3 (07:50→19:58)
[2020-01-04] MEDS: Multivitamins with Iron/Calcium/Folic Acid/Minerals Tab PO SCH (07:50)
[2020-01-04] MEDS: Loratadine 10 MG Tab PO PRN (07:51)
[2020-01-04] MEDS: Acetaminophen/HYDROcodone 325-5 MG Tab PO PRN (07:51)
[2020-01-04] MEDS: Docusate Sodium 100 MG Cap PO PRN (07:51)
[2020-01-04] MEDS: Enoxaparin 40 MG/0.4 ML Syringe SUBCUT SCH (08:00)
[2020-01-04] MEDS: Fluticasone-Salmeterol 232-14 MCG Powder Inhalent INH SCH ×2 (09:24→19:57)
[2020-01-04] MEDS: Simvastatin 10 MG Tab PO SCH (19:57)
[2020-01-04] MEDS: Montelukast 10 MG Tab PO SCH (19:57)
[2020-01-04] MEDS: Pregabalin 25 MG Cap PO SCH (19:57)
[2020-01-05] MEDS: Albuterol 0.083% 2.5 MG/3 ML Neb Soln INH SCH ×4 (06:40→19:42)
[2020-01-05] MEDS: Enoxaparin 40 MG/0.4 ML Syringe SUBCUT SCH (09:19)
[2020-01-05] MEDS: Fluticasone-Salmeterol 232-14 MCG Powder Inhalent INH SCH ×2 (09:19→23:13)
[2020-01-05] MEDS: Acetaminophen 325 MG Tab PO SCH ×3 (09:20→19:41)
[2020-01-05] MEDS: Multivitamins with Iron/Calcium/Folic Acid/Minerals Tab PO SCH (09:22)
[2020-01-05] MEDS: Pregabalin 25 MG Cap PO SCH (19:42)
[2020-01-05] MEDS: Simvastatin 10 MG Tab PO SCH (19:42)
[2020-01-05] MEDS: Montelukast 10 MG Tab PO SCH (19:42)
[2020-01-06] MEDS: Albuterol 0.083% 2.5 MG/3 ML Neb Soln INH SCH ×4 (06:17→19:33)
[2020-01-06] MEDS: Multivitamins with Iron/Calcium/Folic Acid/Minerals Tab PO SCH (07:44)
[2020-01-06] MEDS: Acetaminophen 325 MG Tab PO SCH ×3 (07:44→19:34)
[2020-01-06] MEDS: Fluticasone-Salmeterol 232-14 MCG Powder Inhalent INH SCH ×2 (07:45→19:33)
[2020-01-06] MEDS: Enoxaparin 40 MG/0.4 ML Syringe SUBCUT SCH (09:34)
[2020-01-06] MEDS: Simvastatin 10 MG Tab PO SCH (19:33)
[2020-01-06] MEDS: Montelukast 10 MG Tab PO SCH (19:33)
[2020-01-06] MEDS: Pregabalin 25 MG Cap PO SCH (19:33)
[2020-01-07] MEDS: Albuterol 0.083% 2.5 MG/3 ML Neb Soln INH SCH ×4 (06:18→19:48)
[2020-01-07] MEDS: Fluticasone-Salmeterol 232-14 MCG Powder Inhalent INH SCH ×2 (08:20→19:52)
[2020-01-07] MEDS: Acetaminophen 325 MG Tab PO SCH ×3 (08:24→19:49)
[2020-01-07] MEDS: Multivitamins with Iron/Calcium/Folic Acid/Minerals Tab PO SCH (08:24)
[2020-01-07] MEDS: Enoxaparin 40 MG/0.4 ML Syringe SUBCUT SCH (09:41)
[2020-01-07] MEDS: Pregabalin 25 MG Cap PO SCH (19:49)
[2020-01-07] MEDS: Montelukast 10 MG Tab PO SCH (19:49)
[2020-01-07] MEDS: Simvastatin 10 MG Tab PO SCH (19:49)
[2020-01-08 07:08] LABS: ANION GAP 11.2 mmol/L (10-20); CHLORIDE,CL 102 mmol/L (98-107); SODIUM,NA 136 mmol/L (136-145)
[2020-01-08] MEDS: Albuterol 0.083% 2.5 MG/3 ML Neb Soln INH SCH ×4 (07:11→20:30)
[2020-01-08] MEDS: Multivitamins with Iron/Calcium/Folic Acid/Minerals Tab PO SCH (09:04)
[2020-01-08] MEDS: Loratadine 10 MG Tab PO PRN (09:04)
[2020-01-08] MEDS: Acetaminophen 325 MG Tab PO SCH ×3 (09:04→20:30)
[2020-01-08] MEDS: Enoxaparin 40 MG/0.4 ML Syringe SUBCUT SCH (09:04)
[2020-01-08] MEDS: Fluticasone-Salmeterol 232-14 MCG Powder Inhalent INH SCH ×2 (09:05→21:06)
--- NOTE | 2020-01-08 16:53 | PN ---
Progress Note for LARISSA BAKER Date: 01/08/2020 Room #: VM.215 SUBJECTIVE: This is an 79-year-old on swing bed after a hip fracture. The patient still continues to have pain in that left hip. The left hip is swollen. The calves are not swollen. She denies any chest pain, cough, or shortness of breath. She does have underlying asthma and aortic stenosis. She is eating well. She is having bowel movements. She took her last pain pill on the . She is still on Lovenox for deep vein thrombosis prophylaxis. She has not had any bleeding problems. OBJECTIVE: Vital Signs: Her temperature is 97.9, pulse 91, blood pressure 117/60, respiratory rate 16, and O2 of 94% on room air. General: She is in no acute distress. Heart: Regular rate and rhythm. S1, S2 with a systolic murmur. Lungs: Sounds are clear to auscultation bilaterally without crackles or wheezes. Extremities: Warm and dry. No edema in the calf. She does have some tenderness in the left hip area. Incisions were examined. Sutures have been removed. They are healing well. Mental Status: She is alert and orientated x3. OT cognitive eval report is pending. ASSESSMENT AND PLAN: 1. Left hip fracture, status post surgery on 12/19/2019, intramedullary nailing. Pain control has been adequate. The patient is working with therapies. We will continue Lovenox until 01/18/2020. 2. Underlying asthma, controlled. 3. Aortic stenosis. The patient is not having symptoms. 4. Postoperative anemia. Hemoglobins are stable. 5. Urinary tract infection, treated. 6. Concern for memory loss. OT eval has been planned. 7. Essential hypertension. Blood pressure is controlled. She has been off hydrochlorothiazide due to hyponatremia. PLAN: The patient will continue swing bed cares, working with therapies. We will discharge her home when she is able. Addendum her MMSE returned MKA: 01/08/2020 16:38:37 MODL: 01/08/2020 16:48:21 /[id number] JONAS
[2020-01-08] MEDS: Simvastatin 10 MG Tab PO SCH (20:29)
[2020-01-08] MEDS: Montelukast 10 MG Tab PO SCH (20:29)
[2020-01-08] MEDS: Pregabalin 25 MG Cap PO SCH (20:29)
[2020-01-09] MEDS: Albuterol 0.083% 2.5 MG/3 ML Neb Soln INH SCH ×4 (07:00→20:23)
[2020-01-09] MEDS ORDERED: Diazepam 2 MG Tab PO ONE (08:29)
[2020-01-09] MEDS: Fluticasone-Salmeterol 232-14 MCG Powder Inhalent INH SCH ×2 (08:59→20:28)
[2020-01-09] MEDS: Enoxaparin 40 MG/0.4 ML Syringe SUBCUT SCH (08:59)
[2020-01-09] MEDS: Acetaminophen 325 MG Tab PO SCH ×3 (09:00→20:23)
[2020-01-09] MEDS: Loratadine 10 MG Tab PO PRN (09:01)
[2020-01-09] MEDS: Docusate Sodium 100 MG Cap PO PRN (09:01)
[2020-01-09] MEDS: Multivitamins with Iron/Calcium/Folic Acid/Minerals Tab PO SCH (09:02)
--- NOTE | 2020-01-09 17:31 | PN ---
Progress Note for LARISSA BAKER Date: 01/09/2020 Room #: VM.215 SUBJECTIVE: An 79-year-old seen this morning due to dizziness. It came on suddenly. She had been up for a while. It was more of a room spinning. She has not had this before. She denies any history of vertigo or hearing problems. She has no vision changes, no headache, no weakness in her extremities. She has been off her hydrochlorothiazide due to hyponatremia after her hip surgery, but her sodium yesterday was normal, her hemoglobin was stable at 10. She is not having any chest pain or shortness of breath. She has known aortic stenosis. OBJECTIVE: Vital Signs: This morning, her temperature 98.3, pulse 62, blood pressure 130/62, respiratory rate 17, and O2 of 96 on room air. General: She is in no acute distress. Heart: Regular rate and rhythm. S1, S2 with murmur. Lungs: Sounds are clear to auscultation bilaterally without crackles or wheezes. Extremities: Warm and dry. No edema. Left hip; noted no increase in tenderness, no redness, no warmth. Mental Status: Alert and orientated x3. Her coordination with finger-nose- finger is intact. Her extraocular motor function is intact. Her pupils were equal and round. She has no nystagmus. ASSESSMENT AND PLAN: 1. An episode of vertigo. Tried 1 dose of Valium, it actually did work. We will restart the patient on hydrochlorothiazide. 2. Essential hypertension. We are restarting hydrochlorothiazide. 3. Aortic stenosis, stable. She is not having any orthostatics symptoms. 4. Hip fracture. The patient is working with therapies. 5. Anemia. Hemoglobin is stable. We will recheck Wednesday. 6. Concern for memory loss. Mini-Mental 27/30. The patient denies any memory problems before surgery. She feels it is related to surgery. I had not met her until recently. 7. Asthma. She is on her home treatments with her albuterol nebs, her Singulair, and her Advair. PLAN: The patient will continue on swing bed. If she has any vision changes or other neurologic symptoms, we will consider a head CT. She is currently on Lovenox 40 mg daily for DVT prophylaxis through the . We will get lab work Wednesday. We will restart hydrochlorothiazide. She will be up and working with therapies. MKA: 01/09/2020 17:03:27 MODL: 01/09/2020 17:23:02 /[id number]
[2020-01-09] MEDS: Pregabalin 25 MG Cap PO SCH (20:21)
[2020-01-09] MEDS: Acetaminophen/HYDROcodone 325-5 MG Tab PO PRN (20:21)
[2020-01-09] MEDS: Montelukast 10 MG Tab PO SCH (20:22)
[2020-01-09] MEDS: Simvastatin 10 MG Tab PO SCH (20:22)
[2020-01-10] MEDS: Hydrochlorothiazide 12.5 MG Cap PO SCH ×2 (02:18→09:09)
[2020-01-10] MEDS: Albuterol 0.083% 2.5 MG/3 ML Neb Soln INH SCH ×4 (06:36→19:09)
[2020-01-10] MEDS: Fluticasone-Salmeterol 232-14 MCG Powder Inhalent INH SCH ×2 (09:07→19:09)
[2020-01-10] MEDS: Enoxaparin 40 MG/0.4 ML Syringe SUBCUT SCH (09:07)
[2020-01-10] MEDS: Acetaminophen 325 MG Tab PO SCH ×3 (09:08→19:09)
[2020-01-10] MEDS: Multivitamins with Iron/Calcium/Folic Acid/Minerals Tab PO SCH (09:08)
[2020-01-10] MEDS: Loratadine 10 MG Tab PO PRN (09:09)
[2020-01-10] MEDS: Docusate Sodium 100 MG Cap PO PRN (09:09)
[2020-01-10] MEDS: Simvastatin 10 MG Tab PO SCH (19:09)
[2020-01-10] MEDS: Pregabalin 25 MG Cap PO SCH (19:09)
[2020-01-10] MEDS: Montelukast 10 MG Tab PO SCH (19:09)
--- NOTE | 2020-01-10 19:16 | PCM.SN.2 ---
- Free Text/Narrative Note: No further reports of dizziness. Her pain is under better control with limited [place] use. Will d/c Lyrica at this time she had been weaned down to bedtime.
[2020-01-11] MEDS: Albuterol 0.083% 2.5 MG/3 ML Neb Soln INH SCH ×4 (06:20→19:44)
[2020-01-11] MEDS: Fluticasone-Salmeterol 232-14 MCG Powder Inhalent INH SCH ×2 (08:57→19:45)
[2020-01-11] MEDS: Enoxaparin 40 MG/0.4 ML Syringe SUBCUT SCH (08:58)
[2020-01-11] MEDS: Acetaminophen 325 MG Tab PO SCH ×3 (08:58→19:43)
[2020-01-11] MEDS: Hydrochlorothiazide 12.5 MG Cap PO SCH (09:01)
[2020-01-11] MEDS: Multivitamins with Iron/Calcium/Folic Acid/Minerals Tab PO SCH (09:01)
[2020-01-11] MEDS: Montelukast 10 MG Tab PO SCH (19:42)
[2020-01-11] MEDS: Simvastatin 10 MG Tab PO SCH (19:43)
[2020-01-12] MEDS: Albuterol 0.083% 2.5 MG/3 ML Neb Soln INH SCH ×4 (07:09→19:56)
[2020-01-12 07:12] LABS: CHLORIDE,CL 100 mmol/L (98-107); SODIUM,NA 134 mmol/L (136-145)
[2020-01-12 07:14] LABS: ANION GAP 9.2 mmol/L (10-20)
[2020-01-12] MEDS: Fluticasone-Salmeterol 232-14 MCG Powder Inhalent INH SCH ×2 (09:01→19:58)
[2020-01-12] MEDS: Enoxaparin 40 MG/0.4 ML Syringe SUBCUT SCH (09:01)
[2020-01-12] MEDS: Acetaminophen 325 MG Tab PO SCH ×3 (09:01→19:56)
[2020-01-12] MEDS: Multivitamins with Iron/Calcium/Folic Acid/Minerals Tab PO SCH (09:01)
[2020-01-12] MEDS: Hydrochlorothiazide 12.5 MG Cap PO SCH (09:01)
[2020-01-12] MEDS: Simvastatin 10 MG Tab PO SCH (19:56)
[2020-01-12] MEDS: Montelukast 10 MG Tab PO SCH (19:56)
[2020-01-13] MEDS: Albuterol 0.083% 2.5 MG/3 ML Neb Soln INH SCH ×4 (06:45→20:00)
[2020-01-13] MEDS: Multivitamins with Iron/Calcium/Folic Acid/Minerals Tab PO SCH (08:21)
[2020-01-13] MEDS: Fluticasone-Salmeterol 232-14 MCG Powder Inhalent INH SCH ×2 (08:21→20:01)
[2020-01-13] MEDS: Hydrochlorothiazide 12.5 MG Cap PO SCH (08:21)
[2020-01-13] MEDS: Enoxaparin 40 MG/0.4 ML Syringe SUBCUT SCH (08:22)
[2020-01-13] MEDS: Acetaminophen 325 MG Tab PO SCH ×3 (08:22→20:00)
[2020-01-13] MEDS: Montelukast 10 MG Tab PO SCH (20:00)
[2020-01-13] MEDS: Simvastatin 10 MG Tab PO SCH (20:00)
[2020-01-14] MEDS: Albuterol 0.083% 2.5 MG/3 ML Neb Soln INH SCH ×4 (07:05→19:44)
[2020-01-14] MEDS: Fluticasone-Salmeterol 232-14 MCG Powder Inhalent INH SCH ×2 (08:06→19:44)
[2020-01-14] MEDS: Enoxaparin 40 MG/0.4 ML Syringe SUBCUT SCH (08:06)
[2020-01-14] MEDS: Multivitamins with Iron/Calcium/Folic Acid/Minerals Tab PO SCH (08:07)
[2020-01-14] MEDS: Acetaminophen 325 MG Tab PO SCH ×3 (08:07→19:45)
[2020-01-14] MEDS: Hydrochlorothiazide 12.5 MG Cap PO SCH (08:07)
[2020-01-14] MEDS: Montelukast 10 MG Tab PO SCH (19:45)
[2020-01-14] MEDS: Simvastatin 10 MG Tab PO SCH (19:45)
[2020-01-15] MEDS: Albuterol 0.083% 2.5 MG/3 ML Neb Soln INH SCH ×3 (06:29→20:42)
[2020-01-15] MEDS: Acetaminophen/HYDROcodone 325-5 MG Tab PO PRN (06:31)
[2020-01-15] MEDS: Enoxaparin 40 MG/0.4 ML Syringe SUBCUT SCH (08:11)
[2020-01-15] MEDS: Acetaminophen 325 MG Tab PO SCH ×3 (08:11→19:58)
[2020-01-15] MEDS: Hydrochlorothiazide 12.5 MG Cap PO SCH (08:12)
[2020-01-15] MEDS: Multivitamins with Iron/Calcium/Folic Acid/Minerals Tab PO SCH (08:12)
[2020-01-15] MEDS: Loratadine 10 MG Tab PO PRN (08:12)
[2020-01-15] MEDS: Fluticasone-Salmeterol 232-14 MCG Powder Inhalent INH SCH ×2 (08:13→19:57)
--- NOTE | 2020-01-15 13:56 | PN ---
Progress Note for LARISSA BAKER Date: 01/15/2020 Room #: VM.215 SUBJECTIVE: This is an 79-year-old on swing bed recovering after a hip fracture. The patient feels her pain is under improved control. She was able to get out and walk further over the weekend, even down to the shower. She is using only about 1 pain pill per day of [place] and is instead on scheduled Tylenol. She feels that her breathing has improved. She is no longer coughing. She does have a history of asthma. She was restarted on hydrochlorothiazide, and her swelling has greatly improved. She has had no further bouts of dizziness. OBJECTIVE: Vital Signs: Her temperature is 97.6, pulse 89, blood pressure 118/61, respiratory rate 17, and O2 of 97% on room air. General: She is in no acute distress. Heart: Regular rate and rhythm with murmur. Lungs: Lung sounds are clear to auscultation bilaterally without crackles or wheezes. Extremities: Warm and dry. There is no edema. Mental Status: She is alert. She is orientated x3. ASSESSMENT: 1. Postoperative from a left hip fracture, status post intramedullary nailing on 12/19/2019. We will continue with current therapy. She is making progress. 2. Deep venous thrombosis prophylaxis. She is on Lovenox till the . We will likely start her on some aspirin after that. 3. Underlying asthma, controlled. We will continue her home inhalers. 4. Aortic stenosis, not currently having any symptoms. 5. Postoperative anemia. Hemoglobins have been stable. 6. Urinary tract infection, treated. 7. Mild cognitive impairment, possibly related to some medications. She is now off the Lyrica. 8. Essential hypertension. Blood pressure is controlled on the hydrochlorothiazide. Her last sodium was 134. We will repeat later this week. PLAN: The patient will continue on swing bed cares. She will work with therapies. We will continue the same pain control. She will be going to see her surgeon next week. MKA: 01/15/2020 13:14:45 MODL: 01/15/2020 13:46:54 /[id number]
[2020-01-15] MEDS: Simvastatin 10 MG Tab PO SCH (19:57)
[2020-01-15] MEDS: Montelukast 10 MG Tab PO SCH (19:58)
[2020-01-16 06:48] LABS: CHLORIDE,CL 98 mmol/L (98-107); SODIUM,NA 132 mmol/L (136-145)
[2020-01-16 06:51] LABS: ANION GAP 9.1 mmol/L (10-20)
[2020-01-16] MEDS: Albuterol 0.083% 2.5 MG/3 ML Neb Soln INH SCH ×2 (07:06→19:37)
[2020-01-16] MEDS: Fluticasone-Salmeterol 232-14 MCG Powder Inhalent INH SCH ×2 (07:54→19:37)
[2020-01-16] MEDS: Hydrochlorothiazide 12.5 MG Cap PO SCH (07:55)
[2020-01-16] MEDS: Acetaminophen 325 MG Tab PO SCH ×3 (07:55→19:38)
[2020-01-16] MEDS: Loratadine 10 MG Tab PO PRN (07:56)
[2020-01-16] MEDS: Docusate Sodium 100 MG Cap PO PRN (07:56)
[2020-01-16] MEDS: Multivitamins with Iron/Calcium/Folic Acid/Minerals Tab PO SCH (07:56)
[2020-01-16] MEDS: Enoxaparin 40 MG/0.4 ML Syringe SUBCUT SCH (08:01)
[2020-01-16] MEDS: Montelukast 10 MG Tab PO SCH (19:38)
[2020-01-16] MEDS: Simvastatin 10 MG Tab PO SCH (19:38)
[2020-01-17] MEDS: Albuterol 0.083% 2.5 MG/3 ML Neb Soln INH SCH ×2 (07:06→19:28)
[2020-01-17] MEDS: Acetaminophen 325 MG Tab PO SCH ×3 (09:26→19:28)
[2020-01-17] MEDS: Fluticasone-Salmeterol 232-14 MCG Powder Inhalent INH SCH ×2 (09:26→19:29)
[2020-01-17] MEDS: Hydrochlorothiazide 12.5 MG Cap PO SCH (09:27)
[2020-01-17] MEDS: Loratadine 10 MG Tab PO PRN (09:27)
[2020-01-17] MEDS: Multivitamins with Iron/Calcium/Folic Acid/Minerals Tab PO SCH (09:27)
[2020-01-17] MEDS: Enoxaparin 40 MG/0.4 ML Syringe SUBCUT SCH (09:27)
[2020-01-17] MEDS: Montelukast 10 MG Tab PO SCH (19:28)
[2020-01-17] MEDS: Simvastatin 10 MG Tab PO SCH (19:28)
[2020-01-18] MEDS: Acetaminophen/HYDROcodone 325-5 MG Tab PO PRN (03:53)
[2020-01-18] MEDS: Albuterol 0.083% 2.5 MG/3 ML Neb Soln INH SCH ×2 (07:09→19:20)
[2020-01-18] MEDS: Multivitamins with Iron/Calcium/Folic Acid/Minerals Tab PO SCH (07:52)
[2020-01-18] MEDS: Acetaminophen 325 MG Tab PO SCH ×3 (07:52→19:21)
[2020-01-18] MEDS: Hydrochlorothiazide 12.5 MG Cap PO SCH (07:52)
[2020-01-18] MEDS: Fluticasone-Salmeterol 232-14 MCG Powder Inhalent INH SCH ×2 (07:53→19:21)
[2020-01-18] MEDS: Enoxaparin 40 MG/0.4 ML Syringe SUBCUT SCH ×2 (07:54→09:48)
[2020-01-18] MEDS: Simvastatin 10 MG Tab PO SCH (19:20)
[2020-01-18] MEDS: Montelukast 10 MG Tab PO SCH (19:21)
[2020-01-19] MEDS: Albuterol 0.083% 2.5 MG/3 ML Neb Soln INH SCH ×2 (06:28→20:07)
[2020-01-19] MEDS: Fluticasone-Salmeterol 232-14 MCG Powder Inhalent INH SCH ×2 (07:56→20:23)
[2020-01-19] MEDS: Multivitamins with Iron/Calcium/Folic Acid/Minerals Tab PO SCH (07:58)
[2020-01-19] MEDS: Acetaminophen 325 MG Tab PO SCH ×3 (07:58→20:06)
[2020-01-19] MEDS: Hydrochlorothiazide 12.5 MG Cap PO SCH (07:58)
[2020-01-19] MEDS: Simvastatin 10 MG Tab PO SCH (20:07)
[2020-01-19] MEDS: Montelukast 10 MG Tab PO SCH (20:07)
[2020-01-20] MEDS: Albuterol 0.083% 2.5 MG/3 ML Neb Soln INH SCH ×2 (06:15→20:07)
[2020-01-20] MEDS: Acetaminophen 325 MG Tab PO SCH ×3 (07:59→20:07)
[2020-01-20] MEDS: Fluticasone-Salmeterol 232-14 MCG Powder Inhalent INH SCH ×2 (07:59→20:23)
[2020-01-20] MEDS: Multivitamins with Iron/Calcium/Folic Acid/Minerals Tab PO SCH (08:00)
[2020-01-20] MEDS: Hydrochlorothiazide 12.5 MG Cap PO SCH (08:00)
[2020-01-20] MEDS: Simvastatin 10 MG Tab PO SCH (20:07)
[2020-01-20] MEDS: Montelukast 10 MG Tab PO SCH (20:07)
[2020-01-21] MEDS: Albuterol 0.083% 2.5 MG/3 ML Neb Soln INH SCH ×2 (06:17→19:36)
[2020-01-21] MEDS: Fluticasone-Salmeterol 232-14 MCG Powder Inhalent INH SCH ×2 (07:54→19:57)
[2020-01-21] MEDS: Acetaminophen 325 MG Tab PO SCH ×3 (07:55→19:36)
[2020-01-21] MEDS: Hydrochlorothiazide 12.5 MG Cap PO SCH (07:57)
[2020-01-21] MEDS: Multivitamins with Iron/Calcium/Folic Acid/Minerals Tab PO SCH (07:57)
[2020-01-21] MEDS: Montelukast 10 MG Tab PO SCH (19:36)
[2020-01-21] MEDS: Simvastatin 10 MG Tab PO SCH (19:36)
[2020-01-22 07:07] LABS: ANION GAP 12.2 mmol/L (10-20); CHLORIDE,CL 97 mmol/L (98-107); SODIUM,NA 132 mmol/L (136-145)
[2020-01-22] MEDS: Albuterol 0.083% 2.5 MG/3 ML Neb Soln INH SCH ×2 (07:14→19:37)
[2020-01-22] MEDS: Acetaminophen 325 MG Tab PO SCH ×3 (07:26→19:37)
[2020-01-22] MEDS: Fluticasone-Salmeterol 232-14 MCG Powder Inhalent INH SCH ×2 (07:26→19:38)
[2020-01-22] MEDS: Multivitamins with Iron/Calcium/Folic Acid/Minerals Tab PO SCH (07:27)
[2020-01-22] MEDS: Hydrochlorothiazide 12.5 MG Cap PO SCH (07:27)
[2020-01-22] MEDS: Montelukast 10 MG Tab PO SCH (19:37)
[2020-01-22] MEDS: Simvastatin 10 MG Tab PO SCH (19:37)
[2020-01-23] MEDS: Albuterol 0.083% 2.5 MG/3 ML Neb Soln INH SCH ×2 (07:03→20:14)
[2020-01-23] MEDS: Multivitamins with Iron/Calcium/Folic Acid/Minerals Tab PO SCH (07:25)
[2020-01-23] MEDS: Hydrochlorothiazide 12.5 MG Cap PO SCH (07:44)
[2020-01-23] MEDS: Acetaminophen 325 MG Tab PO SCH ×3 (07:44→20:14)
[2020-01-23] MEDS: Fluticasone-Salmeterol 232-14 MCG Powder Inhalent INH SCH ×2 (07:45→20:15)
[2020-01-23] MEDS: Simvastatin 10 MG Tab PO SCH (20:14)
[2020-01-23] MEDS: Montelukast 10 MG Tab PO SCH (20:14)
[2020-01-24] MEDS: Acetaminophen 325 MG Tab PO PRN (06:22)
[2020-01-24] MEDS: Albuterol 0.083% 2.5 MG/3 ML Neb Soln INH SCH ×2 (06:22→20:14)
[2020-01-24] MEDS: Hydrochlorothiazide 12.5 MG Cap PO SCH (09:56)
[2020-01-24] MEDS: Multivitamins with Iron/Calcium/Folic Acid/Minerals Tab PO SCH (09:56)
[2020-01-24] MEDS: Acetaminophen 325 MG Tab PO SCH ×3 (09:56→20:13)
[2020-01-24] MEDS: Fluticasone-Salmeterol 232-14 MCG Powder Inhalent INH SCH ×2 (09:58→20:13)
[2020-01-24] MEDS: Simvastatin 10 MG Tab PO SCH (20:14)
[2020-01-24] MEDS: Montelukast 10 MG Tab PO SCH (20:14)
--- NOTE | 2020-01-24 21:39 | PN ---
Progress Note for LARISSA BAKER Date: 01/24/2020 Room #: VM.215 SUBJECTIVE: This is an 79-year-old on swing bed after a left hip fracture, status post ORIF on 12/19/2019. She went to see her orthopedic doctor this week, and they felt she needed to still limit weightbearing to 25% to 50%, continue working with therapies, continue aspirin for DVT prophylaxis now that she has completed Lovenox, and try to limit narcotics, which she has already been doing. She uses a pain pill once every couple days, usually during the night, last one was on the 01/17. She states the pain is better today. She is having bowel movements. She otherwise is not having any trouble with coughing or breathing or leg swelling. She is really helping to return home soon. Her has memory issues, so she does not feel he would be able to help her much. OBJECTIVE: Vital Signs: The patient has a temperature of 97.8, pulse 95, blood pressure 140/72, respiratory rate 18, and O2 of 96 on room air. General: She is in no acute distress. Heart: Regular rate and rhythm with murmur. Lungs: Sounds are clear to auscultation bilaterally without crackles or wheezes. Extremities: Warm and dry. There is no edema. There is no calf tenderness. Mental Status: She is alert. She is orientated x3. LABORATORY DATA: She had lab work on Wednesday showing her white count 6.7, hemoglobin 12.2, platelets 416. Sodium 132, stable; potassium 4.2; chloride 97; bicarb 17; Cr 0.7; glucose 112. ASSESSMENT AND PLAN: 1. Left hip fracture, status post surgery on 12/18. She is still working with therapies. Limited weightbearing, 25% to 50%, and will have a followup with Ortho in 1 month with x-rays. Pain is under good control. 2. Deep venous thrombosis prophylaxis. She completed her Lovenox on the . She is now on aspirin 81 mg daily. She has SCDs ordered as well. 3. Underlying asthma, controlled. 4. Aortic stenosis, not currently having symptoms. 5. Postoperative anemia. She is off iron. Hemoglobin has recovered to over 12. 6. Mild cognitive impairment, stable. 7. Essential hypertension. Blood pressure is controlled on hydrochlorothiazide. 8. Mild hyponatremia. PLAN: The patient will continue swing bed cares. We will repeat lab work next week. We will continue having her work with therapies. She is using very limited narcotics. MKA: 01/24/2020 21:09:12 MODL: 01/24/2020 21:31:39 /[id number] MTDD
[2020-01-25] MEDS: Albuterol 0.083% 2.5 MG/3 ML Neb Soln INH SCH ×2 (06:24→20:02)
[2020-01-25] MEDS: Acetaminophen 325 MG Tab PO SCH ×3 (08:36→20:02)
[2020-01-25] MEDS: Fluticasone-Salmeterol 232-14 MCG Powder Inhalent INH SCH ×2 (08:36→20:04)
[2020-01-25] MEDS: Loratadine 10 MG Tab PO PRN (08:38)
[2020-01-25] MEDS: Hydrochlorothiazide 12.5 MG Cap PO SCH (08:38)
[2020-01-25] MEDS: Aspirin 81 MG Tab.Chew PO SCH (08:38)
[2020-01-25] MEDS: Multivitamins with Iron/Calcium/Folic Acid/Minerals Tab PO SCH (08:38)
[2020-01-25] MEDS: Simvastatin 10 MG Tab PO SCH (20:02)
[2020-01-25] MEDS: Montelukast 10 MG Tab PO SCH (20:02)
[2020-01-26] MEDS: Albuterol 0.083% 2.5 MG/3 ML Neb Soln INH SCH ×2 (06:43→19:48)
[2020-01-26] MEDS: Fluticasone-Salmeterol 232-14 MCG Powder Inhalent INH SCH ×2 (08:06→19:46)
[2020-01-26] MEDS: Acetaminophen 325 MG Tab PO PRN (08:06)
[2020-01-26] MEDS: Hydrochlorothiazide 12.5 MG Cap PO SCH (08:08)
[2020-01-26] MEDS: Loratadine 10 MG Tab PO PRN (08:08)
[2020-01-26] MEDS: Docusate Sodium 100 MG Cap PO PRN (08:08)
[2020-01-26] MEDS: Multivitamins with Iron/Calcium/Folic Acid/Minerals Tab PO SCH (08:08)
[2020-01-26] MEDS: Aspirin 81 MG Tab.Chew PO SCH (08:08)
[2020-01-26] MEDS: Acetaminophen 325 MG Tab PO SCH ×3 (08:09→19:46)
[2020-01-26] MEDS: Montelukast 10 MG Tab PO SCH (19:46)
[2020-01-26] MEDS: Simvastatin 10 MG Tab PO SCH (19:46)
[2020-01-26] MEDS: Acetaminophen/HYDROcodone 325-5 MG Tab PO PRN (19:47)
[2020-01-27] MEDS: Albuterol 0.083% 2.5 MG/3 ML Neb Soln INH SCH ×2 (07:32→19:10)
[2020-01-27] MEDS: Docusate Sodium 100 MG Cap PO PRN (07:58)
[2020-01-27] MEDS: Acetaminophen 325 MG Tab PO SCH ×3 (07:58→19:09)
[2020-01-27] MEDS: Aspirin 81 MG Tab.Chew PO SCH (07:59)
[2020-01-27] MEDS: Hydrochlorothiazide 12.5 MG Cap PO SCH (07:59)
[2020-01-27] MEDS: Multivitamins with Iron/Calcium/Folic Acid/Minerals Tab PO SCH (07:59)
[2020-01-27] MEDS: Fluticasone-Salmeterol 232-14 MCG Powder Inhalent INH SCH ×2 (08:00→19:09)
[2020-01-27] MEDS: Simvastatin 10 MG Tab PO SCH (19:09)
[2020-01-27] MEDS: Montelukast 10 MG Tab PO SCH (19:09)
[2020-01-28] MEDS: Albuterol 0.083% 2.5 MG/3 ML Neb Soln INH SCH ×3 (05:23→19:27)
[2020-01-28] MEDS: Acetaminophen 325 MG Tab PO SCH ×3 (07:43→19:27)
[2020-01-28] MEDS: Fluticasone-Salmeterol 232-14 MCG Powder Inhalent INH SCH ×2 (07:43→19:28)
[2020-01-28] MEDS: Multivitamins with Iron/Calcium/Folic Acid/Minerals Tab PO SCH (07:44)
[2020-01-28] MEDS: Aspirin 81 MG Tab.Chew PO SCH (07:44)
[2020-01-28] MEDS: Hydrochlorothiazide 12.5 MG Cap PO SCH (07:45)
[2020-01-28] MEDS: Simvastatin 10 MG Tab PO SCH (19:27)
[2020-01-28] MEDS: Montelukast 10 MG Tab PO SCH (19:27)
[2020-01-29] MEDS: Albuterol 0.083% 2.5 MG/3 ML Neb Soln INH SCH ×2 (06:35→19:34)
[2020-01-29 07:08] LABS: CHLORIDE,CL 99 mmol/L (98-107); SODIUM,NA 134 mmol/L (136-145)
[2020-01-29 07:13] LABS: ANION GAP 11.1 mmol/L (10-20)
[2020-01-29] MEDS: Fluticasone-Salmeterol 232-14 MCG Powder Inhalent INH SCH ×2 (08:00→19:34)
[2020-01-29] MEDS: Acetaminophen 325 MG Tab PO SCH ×3 (08:01→19:33)
[2020-01-29] MEDS: Hydrochlorothiazide 12.5 MG Cap PO SCH (08:02)
[2020-01-29] MEDS: Aspirin 81 MG Tab.Chew PO SCH (08:02)
[2020-01-29] MEDS: Multivitamins with Iron/Calcium/Folic Acid/Minerals Tab PO SCH (08:02)
--- NOTE | 2020-01-29 18:49 | PCM.SN.2 ---
- Free Text/Narrative Note: Her labs were really good today and UA normal done for frequency. I got notice from PT she will be ready for d/c home with family on .
[2020-01-29] MEDS: Simvastatin 10 MG Tab PO SCH (19:33)
[2020-01-29] MEDS: Montelukast 10 MG Tab PO SCH (19:33)
[2020-01-30] MEDS: Albuterol 0.083% 2.5 MG/3 ML Neb Soln INH SCH ×2 (07:04→21:03)
[2020-01-30] MEDS: Loratadine 10 MG Tab PO PRN (09:07)
[2020-01-30] MEDS: Aspirin 81 MG Tab.Chew PO SCH (09:07)
[2020-01-30] MEDS: Acetaminophen 325 MG Tab PO SCH ×3 (09:07→21:02)
[2020-01-30] MEDS: Multivitamins with Iron/Calcium/Folic Acid/Minerals Tab PO SCH (09:08)
[2020-01-30] MEDS: Hydrochlorothiazide 12.5 MG Cap PO SCH (09:08)
[2020-01-30] MEDS: Fluticasone-Salmeterol 232-14 MCG Powder Inhalent INH SCH ×2 (09:09→21:03)
[2020-01-30] MEDS: Montelukast 10 MG Tab PO SCH (21:01)
[2020-01-30] MEDS: Simvastatin 10 MG Tab PO SCH (21:01)
[2020-01-31 05:52] VITALS: BP 127/73; PULSE 95
[2020-01-31] MEDS: Albuterol 0.083% 2.5 MG/3 ML Neb Soln INH SCH (07:02)
[2020-01-31] MEDS: Aspirin 81 MG Tab.Chew PO SCH (08:08)
[2020-01-31] MEDS: Hydrochlorothiazide 12.5 MG Cap PO SCH (08:08)
[2020-01-31] MEDS: Acetaminophen 325 MG Tab PO SCH (08:08)
[2020-01-31] MEDS: Multivitamins with Iron/Calcium/Folic Acid/Minerals Tab PO SCH (08:08)
[2020-01-31] MEDS: Fluticasone-Salmeterol 232-14 MCG Powder Inhalent INH SCH (08:08)
--- NOTE | 2020-01-31 15:51 | DISCH ---
PRIMARY DISCHARGE DIAGNOSES: 1. Left hip fracture, status post open reduction and internal fixation on 12/19/2019. 2. Underlying asthma, moderate persistent, controlled. 3. Aortic stenosis, moderate based on echo 08/2018, ejection fraction 65%. She is asymptomatic. 4. Obesity. 5. Mild cognitive impairment, seems to have worsened from the Lyrica she was taking. Her Mini-Mental status was completed on 01/01, and she scored a 27/30 with 4.0/5.8 on her ACL. 6. Essential hypertension, controlled. She is doing well back on hydrochlorothiazide. 7. Hyponatremia, resolved on lower dose of 12.5 of hydrochlorothiazide. 8. Postoperative anemia, resolved. Hemoglobin back in the normal range. 9. Urinary tract infection during her stay, treated. Due to urinary frequency, she had a repeat UA that was normal. We discussed going back on bladder medications like Ditropan, and she decided to wait on that at this point. 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 She broke her hip. She had surgery in [place] on the . She was brought to swing bed for further cares. She did require some narcotics, but those were gradually weaned down. She has not taken one now since the and is using Tylenol for pain. She completed 30 days of Lovenox for DVT prophylaxis and was transitioned over to aspirin, which she reports she takes at home and was tolerating even though there was some report of stomach upset from it in the past. She did initially have some issues with breathing, some of this was felt to be due to fluid retention. After her hydrochlorothiazide was restarted, this resolved. It was also felt to be due to asthma, and she was continued on her home treatments for that and did not require extra inhalers or prednisone. Overall, the patient was having bowel movements, she was eating well, she was working well with therapies, but it was felt that her fracture was not healing quite as well as would be liked. At her recent followup with Orthopedic, she still needed to limit weightbearing by 25% to 50%, and she will follow up with them next month. The patient otherwise had her incisions inspected today. They were well healing. OBJECTIVE: Vital Signs: Her temperature 97.7, pulse 95, blood pressure 123/73, respiratory rate 16, and O2 was 94 on room air. General: She is in no acute distress. Heart: Regular rate and rhythm with systolic murmur. Lungs: Sounds are clear to auscultation bilaterally without crackles or wheezes. Abdomen: Has positive bowel sounds. Soft, nontender. Extremities: No edema. There is no tenderness in the thigh. There is just mild swelling in the thigh. The incisions are well healed. Her Homans sign is negative. Mental Status: She is alert and orientated x3. DISCHARGE PLANS AND INSTRUCTIONS: The patient is going home with home health and her , her daughters, and grandchildren will also be involved in care. She will follow up with myself in the clinic in 1 to 2 weeks for posthospital followup. No lab work due. She will have a recheck on 02/20 with Orthopedics for x-rays in [place]. She will use only Tylenol for pain along with heat or ice. She will continue with PT through home health and limit weightbearing by 25% to 50% as per her orthopedic doctor. She will continue aspirin 325 daily for at least another month for blood clots. She can likely go on an 81 mg dose aspirin after that. I continued this dose because this is the dose the patient also reported she had been taking in the past. [id number] assessment for home health occurred with myself on 01/31/2020. The primary reason for home health are teaching and assessments, nursing for monitoring her medications given her asthma and blood pressure as well as her recent event of a left hip fracture. She needs PT and OT for teaching and assessments to help with mobility and ADLs. Leaving home for her does require the assistance of another person and absences will be infrequent and require taxing effort. I will periodically review this plan of care. Greater than 30 minutes spent on the discharge process. Dexa ordered but not yet completed we will schedule outpatient. MKA: 01/31/2020 12:57:52 MODL: 01/31/2020 15:45:45 /[id number] JONAS
== END 2020-01-31 10:00 | disposition home health service (06) | DRG 560 ==
LOC: VM.MS 11:44
PROVIDERS: ADMIT Internal Medicine; ATTEND Internal Medicine
PROC: 30233N1 Transfusion of Nonautologous Red Blood Cells into Peripheral Vein, Percutaneous Approach (ICD-10-PCS; principal; 2019-12-22)
DX: S72.142D Displaced intertrochanteric fracture of left femur, subsequent encounter for closed fracture with routine healing (principal); E87.1 Hypo-osmolality and hyponatremia; N39.0 Urinary tract infection, site not specified; D62 Acute posthemorrhagic anemia; J45.40 Moderate persistent asthma, uncomplicated; I35.0 Nonrheumatic aortic (valve) stenosis; E66.9 Obesity, unspecified; G31.84 Mild cognitive impairment of uncertain or unknown etiology; I10 Essential (primary) hypertension; D64.9 Anemia, unspecified; R35.0 Frequency of micturition; J44.9 Chronic obstructive pulmonary disease, unspecified; E78.5 Hyperlipidemia, unspecified; R42 Dizziness and giddiness; B96.20 Unspecified Escherichia coli [E. coli] as the cause of diseases classified elsewhere; Z88.5 Allergy status to narcotic agent; Z88.6 Allergy status to analgesic agent; Z88.8 Allergy status to other drugs, medicaments and biological substances; Z79.51 Long term (current) use of inhaled steroids; Z79.899 Other long term (current) drug therapy; Z90.710 Acquired absence of both cervix and uterus; Z68.34 Body mass index [BMI] 34.0-34.9, adult
CPT/HCPCS: 36415; 36430; 71045; 80048; 81001; 81003; 85014; 85018; 85025; 86850; 86900; 86901; 86920; 86922; 87086; 87088; 87186; 94640; 97110-GP; 97116-GP; 97129-GO; 97140-GP; 97161-GP; 97165-GO; 97168-GO; 97530-GP; 97535-GO; A9270-GY; J1650; J1940; J7613-GY; P9016

== ENCOUNTER 2021-02-07 17:35 | Emergency (ER) | payer MEDICARE, OTHER ==
[2021-02-07] MEDS ORDERED: fentaNYL 50 MCG/ML SDV IVPUSH ONE ×2 (17:54→19:08)
[2021-02-07 18:06] VITALS: PULSE 91
--- NOTE | 2021-02-07 18:28 | EDM.PDOC ---
ED HPI GENERAL MEDICAL PROBLEM - General Chief Complaint: Lower Extremity Injury/Pain Time Seen by Provider: 02/07/21 17:40 Source of Information: Reports: Patient, EMS, Family History Limitations: Reports: No Limitations - History of Present Illness INITIAL COMMENTS - FREE TEXT/NARRATIVE: Pt. presents to ER with complaints of R hip pain. Pt. states that she misstepped, fell backward and injured her R hip. She states that she did strike her head, but denies any LOC. Pt. has a history of previous L hip fracture in 2019 that was repaired at [facility] [place]. Pt. denies injury elsewhere. Denies any chest pain, lightheadedness, syncope, shortness of breath or palpitations prior to the fall. She has not been experiencing any fever or chills. No nausea or vomiting. Denies any recent illness. Pt. has a history of dementia. She is alert to person and place, recognizes family. She is on plavix for bioprosthetic TAVR. Onset: Today Location: Reports: Pelvis, Lower Extremity, Right Right Hip Pain Score (Numeric/FACES): 8 - Related Data Allergies Allergy/AdvReac Type Severity Reaction Status Date / Time aspirin [From Aggrenox] AdvReac Vomiting Verified 02/07/21 17:57 dipyridamole [From Aggrenox] AdvReac Vomiting Verified 02/07/21 17:57 fexofenadine HCl AdvReac Fainting Verified 02/07/21 17:57 [From Mar-D] pseudoephedrine HCl AdvReac Fainting Verified 02/07/21 17:57 [From Mar-D] Home Meds: Home Meds Montelukast [Singulair] 10 mg PO BEDTIME 02/09/15 [History] Multivitamin [Multi-Vitamin Daily] 1 tab PO DAILY 02/09/15 [History] Acetaminophen [Tylenol] 650 mg PO Q4H PRN tablet 01/30/20 [Rx] Calcium Carbonate/Vitamin D3 [Calcium 500 + Vit D 400] 1 each PO BIDMEALS 02/07/21 [History] Cholecalciferol (Vitamin D3) [Vitamin D3] 1,000 unit PO DAILY 02/07/21 [History] Clopidogrel Bisulfate [Plavix] 75 mg PO DAILY 02/07/21 [History] Donepezil [Aricept] 5 mg PO BEDTIME 02/07/21 [History] Furosemide 10 mg PO DAILY 02/07/21 [History] Psyllium Husk (With Sugar) [Metamucil Powder] 575 gm PO DAILY 02/07/21 [History] Rosuvastatin [Crestor] 20 mg PO BEDTIME 02/07/21 [History] Sertraline [Zoloft] 50 mg PO DAILY 02/07/21 [History] Past Medical History Respiratory History: Reports: Asthma Other Genitourinary History: overactive bladder Other Musculoskeletal History: dx with bursitis and arthritis to hip - Past Surgical History Musculoskeletal Surgical History: Reports: Hip Replacement Other Musculoskeletal Surgeries/Procedures:: left forearm surgery s/p fracture Social & Family History - Family History HEENT: Reports: None Cardiac: Reports: None - Tobacco Use Tobacco Use Status *Q: Unknown Ever Used Tobacco - Caffeine Use Caffeine Use: Reports: Coffee Caffeine Use Comment: 1cup a day ED ROS GENERAL - Review of Systems Review Of Systems: See Below Constitutional: Denies: Fever, Chills, Malaise, Weakness, Fatigue, Diaphoresis HEENT: Reports: No Symptoms Respiratory: Reports: No Symptoms Cardiovascular: Reports: No Symptoms Endocrine: Reports: No Symptoms GI/Abdominal: Reports: No Symptoms : Reports: No Symptoms Musculoskeletal: Reports: Leg Pain, Joint Pain Skin: Reports: No Symptoms Neurological: Reports: No Symptoms Psychiatric: Reports: No Symptoms Hematologic/Lymphatic: Reports: No Symptoms Immunologic: Reports: No Symptoms ED EXAM, GENERAL - Physical Exam Exam: See Below Exam Limited By: No Limitations General Appearance: Alert, WD/WN, No Apparent Distress, Moderate Distress Nose: Normal Inspection, Normal Mucosa, No Blood Throat/Mouth: Normal Inspection, Normal Lips, Normal Oropharynx, Normal Voice, No Airway Compromise Head: Atraumatic, Normocephalic Neck: Normal Inspection, Supple, Non-Tender, Full Range of Motion Respiratory/Chest: No Respiratory Distress, Lungs Clear, Normal Breath Sounds, No Accessory Muscle Use, Chest Non-Tender Cardiovascular: Normal Peripheral Pulses, Regular Rate, Rhythm, No Edema, No JVD, No Murmur, No Rub Peripheral Pulses: 4+: Radial (L), Dorsalis Pedis (L), Dorsalis Pedis (R) GI/Abdominal: Soft, Non-Tender, No Organomegaly, No Distention, No Mass (Female) Exam: Deferred Rectal (Female) Exam: Deferred Back Exam: Normal Inspection, Full Range of Motion Extremities: Normal Inspection, Normal Range of Motion, Non-Tender, No Pedal Edema, Normal Capillary Refill Neurological: Alert, Oriented, CN II-XII Intact, Normal Reflexes, No Motor/Sensory Deficits, Confused Psychiatric: Normal Affect, Normal Mood Skin Exam: Warm, Dry, Intact, Normal Color, No Rash Course - Vital Signs Last Recorded V/S: Last Vital Signs Temp 36.5 C 02/07/21 17:40 Pulse 91 02/07/21 18:54 Resp 14 02/07/21 18:54 BP 181/81 H 02/07/21 18:54 Pulse Ox 91 L 02/07/21 18:54 - Orders/Labs/Meds Labs: Laboratory Tests 02/07/21 02/07/21 02/07/21 Range/Units 18:19 18:26 18:26 WBC 13.0 H (4.0-10.0) x10^3/uL RBC 4.18 (4.00-5.50) x10^6/uL Hgb 14.1 (12.0-16.0) g/dL Hct 43.0 (33.0-47.0) % MCV 102.9 H (78.0-93.0) fL MCH 33.7 H (26.0-32.0) pg MCHC 32.8 (32.0-36.0) g/dL RDW Coeff of Andres 12.4 (10.0-15.0) % Plt Count 315 (130-400) x10^3/uL Immature Gran % (Auto) 1.00 H (0.00-0.43) % Neut % (Auto) 75.8 (50.0-80.0) % Lymph % (Auto) 11.4 L (25.0-50.0) % [place] % (Auto) 9.9 (2.0-11.0) % Eos % (Auto) 1.2 (0.0-4.0) % Baso % (Auto) 0.7 (0.2-1.2) % Neut # (Auto) 9.9 H (1.8-7.7) x10^3/uL Lymph # (Auto) 1.5 (1.0-4.8) x10^3/uL [place] # (Auto) 1.3 H (0.0-0.8) x10^3/uL Eos # (Auto) 0.2 (0.0-0.5) x10^3/uL Baso # (Auto) 0.1 (0.0-0.2) x10^3/uL Immature Gran # (Auto) 0.13 H (0.00-0.07) x10^3/uL PT (9.9-12.5) SEC INR (2.0-3.5) APTT (25.6-32.8) SEC Sodium 139 (136-145) mmol/L Potassium 4.0 (3.5-5.1) mmol/L Chloride 102 (98-107) mmol/L Carbon Dioxide 26 (21-32) mmol/L Anion Gap 15.0 (5-15) mmol/L BUN 19 H (7-18) mg/dL Creatinine 0.9 (0.55-1.02) mg/dL Est Cr Clr Drug Dosing TNP Estimated GFR (MDRD) 60 Glucose 151 H (70-99) mg/dL Calcium 9.1 (8.5-10.1) mg/dL Corrected Calcium 10.3 H (8.5-10.1) mg/dL Total Bilirubin 0.3 (0.2-1.0) mg/dL AST 18 (15-37) U/L ALT 17 (14-59) U/L Alkaline Phosphatase 109 (46-116) U/L Total Protein 7.3 (6.4-8.2) g/dL Albumin 2.5 L (3.4-5.0) g/dL Globulin 4.8 Albumin/Globulin Ratio 0.52 SARS CoV-2 RNA Rapid INDU Negative (NEGATIVE) 02/07/21 Range/Units 18:26 WBC (4.0-10.0) x10^3/uL RBC (4.00-5.50) x10^6/uL Hgb (12.0-16.0) g/dL Hct (33.0-47.0) % MCV (78.0-93.0) fL MCH (26.0-32.0) pg MCHC (32.0-36.0) g/dL RDW Coeff of Andres (10.0-15.0) % Plt Count (130-400) x10^3/uL Immature Gran % (Auto) (0.00-0.43) % Neut % (Auto) (50.0-80.0) % Lymph % (Auto) (25.0-50.0) % [place] % (Auto) (2.0-11.0) % Eos % (Auto) (0.0-4.0) % Baso % (Auto) (0.2-1.2) % Neut # (Auto) (1.8-7.7) x10^3/uL Lymph # (Auto) (1.0-4.8) x10^3/uL [place] # (Auto) (0.0-0.8) x10^3/uL Eos # (Auto) (0.0-0.5) x10^3/uL Baso # (Auto) (0.0-0.2) x10^3/uL Immature Gran # (Auto) (0.00-0.07) x10^3/uL PT 10.0 (9.9-12.5) SEC INR 0.9 L (2.0-3.5) APTT 19.6 L (25.6-32.8) SEC Sodium (136-145) mmol/L Potassium (3.5-5.1) mmol/L Chloride (98-107) mmol/L Carbon Dioxide (21-32) mmol/L Anion Gap (5-15) mmol/L BUN (7-18) mg/dL Creatinine (0.55-1.02) mg/dL Est Cr Clr Drug Dosing Estimated GFR (MDRD) Glucose (70-99) mg/dL Calcium (8.5-10.1) mg/dL Corrected Calcium (8.5-10.1) mg/dL Total Bilirubin (0.2-1.0) mg/dL AST (15-37) U/L ALT (14-59) U/L Alkaline Phosphatase (46-116) U/L Total Protein (6.4-8.2) g/dL Albumin (3.4-5.0) g/dL Globulin Albumin/Globulin Ratio SARS CoV-2 RNA Rapid INDU (NEGATIVE) Meds: Medications Discontinued Medications Generic Name Dose Route Start Last Admin Trade Name Freq PRN Reason Stop Dose Admin Fentanyl 50 mcg 02/07/21 17:54 02/07/21 18:20 Fentanyl 50 Mcg/Ml Sdv IVPUSH 02/07/21 17:55 50 mcg ONETIME ONE Administration Fentanyl 50 mcg 02/07/21 19:08 Fentanyl 50 Mcg/Ml Sdv IVPUSH 02/07/21 19:09 ONETIME ONE - Radiology Interpretation Free Text/Narrative:: Comminuted, intertrocanteric R hip fx. noted. CT brain without contrast negative for acute pathology. Departure - Departure Time of Disposition: 19:10 Disposition: Home, Self-Care 01 Clinical Impression: Hip fracture - Discharge Information Referrals: Liz Godinez DO [Primary Care Provider] - Forms: ED Department Discharge, Interfacility Transfer JOSÉ Sepsis Event Note (ED) - Focused Exam Vital Signs: Vital Signs Temp Pulse Resp BP Pulse Ox 02/07/21 18:54 91 14 181/81 H 91 L 02/07/21 17:40 36.5 C 91 18 179/76 H 93 L - Problem List Review Problem List Initiated/Reviewed/Updated: Yes - Assessment/Plan Plan: Pt. will be transferred to [facility] [facility]. Both [facility] and [facility] are not accepting patients. Pt. will be transported via [facility] ground ambulance.
--- NOTE | 2021-02-07 18:46 | CT ---
[id number] CT/CT Head WO IV EXAM: CT Head WO IV CLINICAL DATA: FALL, STRUCK HEAD. COMPARISON STUDY: October 11, 2020. FINDINGS: No intracranial hemorrhage, extra-axial fluid collection, mass, or acute ischemia. No hydrocephalus. Calvarium intact. Paranasal sinuses and mastoid air cells are clear. IMPRESSION: No acute intracranial findings or significant change from prior examination. Song Hurt MD 02/07/21 1519 Thank you for allowing us to participate in the care of your patient.
--- NOTE | 2021-02-07 18:48 | CR ---
[id number] RAD/RAD Pelvis 1V W 2V Right Hip Exam: RAD Pelvis 1V W 2V Right Hip Indication:FALL, INJURED RIGHT HIP. Comparison: December 18, 2019. Discussion/Impression: Acute comminuted proximal right femur fracture. Fracture is centered in its intertrochanteric region. Single view of the right hip demonstrates possible extension into the distal femoral neck. However, evaluation is somewhat limited due to the overlapping fracture fragments. Femoroacetabular articulation remains in normal alignment. Sequela of proximal left femur fracture ORIF. Fracture demonstrates chronic healed appearance. Visualized portion of the hardware is intact. Song Hurt MD 02/07/21 [id number] Thank you for allowing us to participate in the care of your patient.
[2021-02-07 18:49] LABS: PTT,PARTIAL THROMBOPLSTIN TIME 19.6 SEC (25.6-32.8)
[2021-02-07 18:51] LABS: CHLORIDE,CL 102 mmol/L (98-107); SODIUM,NA 139 mmol/L (136-145)
[2021-02-07 18:54] VITALS: BP 181/81
== END 2021-02-07 19:40 | disposition home or self-care (01) ==
LOC: VM.ED 17:35
DX: S72.141A Displaced intertrochanteric fracture of right femur, initial encounter for closed fracture (principal); J45.909 Unspecified asthma, uncomplicated; F03.90 Unspecified dementia, unspecified severity, without behavioral disturbance, psychotic disturbance, mood disturbance, and anxiety; Z95.2 Presence of prosthetic heart valve; Z88.8 Allergy status to other drugs, medicaments and biological substances; Z88.6 Allergy status to analgesic agent; Z79.02 Long term (current) use of antithrombotics/antiplatelets; Z79.899 Other long term (current) drug therapy; Z20.822 Contact with and (suspected) exposure to COVID-19; W10.9XXA Fall (on) (from) unspecified stairs and steps, initial encounter; Y93.01 Activity, walking, marching and hiking
CPT/HCPCS: 36415; 70450; 80053; 85025; 85610; 85730; 96374; 96376; 99285-25; J3010; U0002

== ENCOUNTER 2021-02-11 11:35 | Inpatient (IN) | payer MEDICARE, OTHER ==
[2021-02-11] MEDS ORDERED: Albuterol HFA 18 Gm Inhaler INH PRN (16:51)
[2021-02-11] MEDS: Albuterol/Ipratropium 3.0-0.5 MG/3 ML Neb Soln NEB SCH (18:11)
[2021-02-11] MEDS: Montelukast 10 MG Tab PO SCH (19:35)
[2021-02-11] MEDS: Rosuvastatin 20 MG Tab PO SCH (19:35)
[2021-02-11] MEDS: Acetaminophen 325 MG Tab PO PRN (19:35)
[2021-02-11] MEDS: Docusate Sodium 100 MG Cap PO SCH (19:35)
[2021-02-11] MEDS: Calcium Carbonate/Vitamin D3 1250 MG-5 MCG Tab PO SCH (19:35)
[2021-02-11] MEDS: Donepezil 5 MG Tab PO SCH (19:35)
[2021-02-11] MEDS: Remove Patch LIDOCAINE TRDERM SCH (19:37)
[2021-02-11] MEDS: Formoterol/Mometasone 200-5 MCG 8.8 GM Inhaler IH SCH (20:56)
[2021-02-12] MEDS: Acetaminophen/oxyCODONE 325-5 MG Tab PO PRN ×4 (01:08→20:07)
[2021-02-12] MEDS: Albuterol/Ipratropium 3.0-0.5 MG/3 ML Neb Soln NEB SCH ×4 (01:08→18:17)
[2021-02-12] MEDS: Ondansetron 4 MG Tab.DIS PO PRN ×2 (01:09→05:44)
[2021-02-12] MEDS: Acetaminophen 325 MG Tab PO PRN ×2 (05:46→16:59)
[2021-02-12 07:19] LABS: CHLORIDE,CL 99 mmol/L (98-107); SODIUM,NA 136 mmol/L (136-145)
[2021-02-12 07:23] LABS: ANION GAP 8.3 mmol/L (5-15)
[2021-02-12] MEDS: Lidocaine 4% 1 each Patch TOP SCH (07:48)
[2021-02-12] MEDS: Psyllium Husk Powder Sugar Free 5.85 GM Packet PO SCH (07:48)
[2021-02-12] MEDS: Ferrous Sulfate 325 MG Tab PO SCH (07:56)
[2021-02-12] MEDS: Multivitamins with Iron/Calcium/Folic Acid/Minerals Tab PO SCH (07:56)
[2021-02-12] MEDS: Sertraline 50 MG Tab PO SCH (07:57)
[2021-02-12] MEDS: Furosemide 20 MG Tab PO SCH (07:57)
[2021-02-12] MEDS: Calcium Carbonate/Vitamin D3 1250 MG-5 MCG Tab PO SCH ×2 (07:57→20:07)
[2021-02-12] MEDS: Cholecalciferol (Vitamin D3) 25 MCG Tab PO SCH (07:59)
[2021-02-12] MEDS: Aspirin 81 MG Tab.EC PO SCH (07:59)
[2021-02-12] MEDS: Docusate Sodium 100 MG Cap PO SCH ×2 (07:59→20:07)
[2021-02-12] MEDS: Formoterol/Mometasone 200-5 MCG 8.8 GM Inhaler IH SCH ×2 (08:12→20:07)
[2021-02-12] MEDS: Potassium Chloride 10 MEQ Tab.ER PO SCH (08:30)
[2021-02-12] MEDS: Montelukast 10 MG Tab PO SCH (20:06)
[2021-02-12] MEDS: Rosuvastatin 20 MG Tab PO SCH (20:06)
[2021-02-12] MEDS: Donepezil 5 MG Tab PO SCH (20:07)
--- NOTE | 2021-02-12 21:20 | HP ---
CHIEF COMPLAINT: Right hip fracture from a fall at home. HISTORY OF PRESENT ILLNESS: This is an 80-year-old female, who is well known to myself from a left hip fracture last year. She had an intertrochanteric fracture on 02/07, and was transferred to [place], where she underwent an intramedullary fixation of the intertrochanteric fracture by Dr. Villalobos and she was discharged to our swing bed for further therapies. Due to postoperative anemia, hemoglobin down to 8.2, she did receive 2 units of packed red blood cells yesterday. She had been on Plavix prior to her fracture due to having an aortic valve transcutaneous procedure earlier this spring and some cardiac stents in May. The patient did not have any chest pain or shortness of breath, but has been tachycardic. The EKGs did not show any AFib. She has had confusion since earlier this spring when she had her heart procedures and had recently been started on medications for that by Neurology. Otherwise, she had a DEXA scan ordered last year, but I did find today that it had not been completed. She says her pain is under good control. She had a bowel movement on arrival. I also talked to her daughter, Diamond. ALLERGIES: Include aspirin, codeine, dipyridamole, fexofenadine, mirabegron. Codeine with aspirin causes nausea and vomiting. MEDICATION LIST: Reviewed. She is still on Plavix 75 mg daily. She is on Tylenol 650 every 6 hours as needed for pain, aspirin 81 mg daily, oxycodone 5/325 1 to 2 every 6 hours as needed for pain, Colace 100 twice daily, iron 325 daily, calcium and D, Metamucil daily, current Zoloft dose is 50 mg daily, Lasix 10 mg daily, Lidoderm patch, Aricept 5 mg at bedtime, Crestor 20 mg daily, Singulair 10 mg daily, Advair inhaler, vitamin D, DuoNeb, albuterol inhaler, and multivitamin. PAST MEDICAL HISTORY: Includes: 1. Asthma, severe. 2. Atherosclerosis of the aorta with severe aortic stenosis, status post TAVR in 2020. 3. Closed left hip fracture. 4. Coronary artery disease with stenting to the LAD back in early 06/2020. 5. Delirium from hip surgery in 12/2019. The patient made a good recovery up to 27/30 on her mini-mental, but her cognitive status worsened after cardiac procedures in the spring. 6. History of amaurosis fugax. 7. History of Colles fracture of the left wrist. 8. History of labyrinthitis. 9. Pulmonary nodules remotely. 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 11.Hyperlipidemia. 12.Essential hypertension. 13.Impaired fasting glucose. 14.Late-onset Alzheimer's in the fall of 2020. 15.Mild to moderate macrocytosis remotely. 16.Obesity. 17.Pelvic floor dysfunction. 18.Postherpetic neuralgia. PAST SURGICAL HISTORY: The patient had cataracts extraction, hysterectomy, left hip fracture surgery, right hip fracture surgery, and the TAVR aortic valve replacement. Otherwise, she has had tonsils and adenoids, cardiac catheterization. FAMILY HISTORY: Both parents are . Her mother had Alzheimer's and diabetes. Her father had stomach cancer and asthma. SOCIAL HISTORY: The patient is . She is a retired RN. She lives at home with her . She has a daughter who just moved back from [place] to help out with her and her . She has another daughter, who lives locally, Diamond Frank. She does not smoke or drink. REVIEW OF SYSTEMS: In general, the patient is not aware of any weight changes. She has not had any sore throat or trouble swallowing. She is not having any fever or chills. She is not having any chest pain. She does feel a little short of breath with activity. Otherwise, all systems reviewed and found to be negative unless otherwise stated in HPI. PHYSICAL EXAMINATION: Vital Signs: On arrival to [facility] on admission, she has a temperature of 97.1, pulse is 94, blood pressure 117/55, respiratory rate is 14, O2 of 94 on room air and 97 on 2 L. Weight is 85.3 kg. General: She is in no acute distress. Heart: Regular rate and rhythm with tachycardia. Lungs: Her lung sounds are decreased, but clear to auscultation without crackles or wheezes. She did get a neb already. Abdomen: Positive bowel sounds. Soft, nondistended, nontender. Extremities: Warm and dry. She has just trace edema at her ankles. Skin: There are blisters noted on her left flank area, also her lower back area noted. Her sacrum and coccyx had no open sores noted on evaluation. Her right hip incision, lida intact, there is no redness, but there is bleeding that saturated her dressing even though it was changed just an hour to two hours before I saw her. NEUROLOGIC: Otherwise, she is alert and orientated x3. She recognizes me. She is aware she is in [place]. LABORATORY DATA: Her last lab work done in [place] prior to transfer did include a hemoglobin of 11.3 and a negative COVID test. It should be also noted in the discharge summary that it said she had some volume overload with her blood transfusions. ASSESSMENT: 1. Intertrochanteric fracture to the right hip, status post intramedullary fixation of the intertrochanteric fracture, postoperative day #3. The patient is still having pain. She is still bleeding. I am going to go ahead and stop her Plavix. We will continue her aspirin. Currently, due to bleeding, she is not on any other DVT prophylaxis. We will get the AMA stockings in place. 2. Postoperative anemia. I will repeat hemoglobin tomorrow. 3. Underlying coronary disease. She is asymptomatic. 4. Underlying asthma. We will continue her inhalers and nebulizers. 5. Tachycardia, could be due to pain, activity, the anemia. We will continue to monitor. We will continue her home medications, although she is not currently on any beta blockers, but I would institute them if she was having more hypertension. 6. Chronic diastolic heart failure. She is on Lasix. We will adjust doses if needed. Her last EF was 75%. 7. Hyponatremia. We will repeat a sodium tomorrow. Her last sodium in [place] was 130. 8. Alzheimer's. She will continue her home medications. 9. Essential hypertension, controlled. 10.Obesity. 11.Likely underlying osteoporosis. She will need a followup DEXA scan. 12.Impaired fasting glucose. We will do b.i.d. Accu-Chek. She has actually been up to 162 in [place]. PLAN: The patient will be admitted for swing bed cares with physical therapy. We will likely also institute occupational therapy while she is here. I anticipate she will need a prolonged stay for further recovery. We will recheck lab work tomorrow and keep a close eye on her hemoglobin. I will hold her Plavix. We will get her on AMA stockings for DVT prophylaxis, she is on her aspirin. We will get her working on incentive spirometry. We will continue to change dressing and treat and protect skin as able. She has no followup currently scheduled for Ortho in [place], but this will need to be arranged. She will need her lida out on 02/21. For DVT prophylaxis, again, she is on the AMA stockings. We will start Lovenox as soon as we are able when she is not bleeding. She is a code level 3. MKA: 02/12/2021 15:28:47 MODL: 02/12/2021 21:15:05 /[id number]
[2021-02-12] MEDS: Remove Patch LIDOCAINE TRDERM SCH (23:06)
[2021-02-13] MEDS: Albuterol/Ipratropium 3.0-0.5 MG/3 ML Neb Soln NEB SCH ×4 (00:51→18:39)
[2021-02-13] MEDS: Acetaminophen/oxyCODONE 325-5 MG Tab PO PRN ×3 (00:51→09:32)
[2021-02-13] MEDS: Aspirin 81 MG Tab.EC PO SCH (09:12)
[2021-02-13] MEDS: Calcium Carbonate/Vitamin D3 1250 MG-5 MCG Tab PO SCH ×2 (09:12→20:04)
[2021-02-13] MEDS: Lidocaine 4% 1 each Patch TOP SCH (09:12)
[2021-02-13] MEDS: Potassium Chloride 10 MEQ Tab.ER PO SCH (09:13)
[2021-02-13] MEDS: Ferrous Sulfate 325 MG Tab PO SCH (09:13)
[2021-02-13] MEDS: Docusate Sodium 100 MG Cap PO SCH ×2 (09:13→20:04)
[2021-02-13] MEDS: Multivitamins with Iron/Calcium/Folic Acid/Minerals Tab PO SCH (09:13)
[2021-02-13] MEDS: Sertraline 50 MG Tab PO SCH (09:14)
[2021-02-13] MEDS: Psyllium Husk Powder Sugar Free 5.85 GM Packet PO SCH (09:14)
[2021-02-13] MEDS: Cholecalciferol (Vitamin D3) 25 MCG Tab PO SCH (09:14)
[2021-02-13] MEDS: Furosemide 20 MG Tab PO SCH (09:14)
[2021-02-13] MEDS: Formoterol/Mometasone 200-5 MCG 8.8 GM Inhaler IH SCH ×2 (09:16→20:07)
[2021-02-13] MEDS: Acetaminophen 325 MG Tab PO PRN ×2 (13:47→20:05)
[2021-02-13] MEDS: Rosuvastatin 20 MG Tab PO SCH (20:04)
[2021-02-13] MEDS: Montelukast 10 MG Tab PO SCH (20:04)
[2021-02-13] MEDS: Donepezil 5 MG Tab PO SCH (20:04)
[2021-02-13] MEDS: Remove Patch LIDOCAINE TRDERM SCH (20:07)
[2021-02-14] MEDS: Albuterol/Ipratropium 3.0-0.5 MG/3 ML Neb Soln NEB SCH ×2 (00:05→07:39)
[2021-02-14 07:08] VITALS: BP 134/69; PULSE 100
[2021-02-14] MEDS ORDERED: Magnesium Oxide 400 MG Tab PO SCH (08:15)
[2021-02-14 09:56] LABS: CHLORIDE,CL 100 mmol/L (98-107); SODIUM,NA 135 mmol/L (136-145)
[2021-02-14 10:00] LABS: ANION GAP 11.4 mmol/L (5-15)
[2021-02-14 10:03] LABS: PTT,PARTIAL THROMBOPLSTIN TIME 24.1 SEC (25.6-32.8)
[2021-02-14] MEDS: Psyllium Husk Powder Sugar Free 5.85 GM Packet PO SCH (10:52)
[2021-02-14] MEDS: Docusate Sodium 100 MG Cap PO SCH (10:52)
[2021-02-14] MEDS: Ferrous Sulfate 325 MG Tab PO SCH (10:52)
[2021-02-14] MEDS: Multivitamins with Iron/Calcium/Folic Acid/Minerals Tab PO SCH (10:52)
[2021-02-14] MEDS: Aspirin 81 MG Tab.EC PO SCH (10:52)
[2021-02-14] MEDS: Sertraline 50 MG Tab PO SCH (10:53)
[2021-02-14] MEDS: Potassium Chloride 10 MEQ Tab.ER PO SCH (10:53)
[2021-02-14] MEDS: Furosemide 20 MG Tab PO SCH (10:53)
[2021-02-14] MEDS: Calcium Carbonate/Vitamin D3 1250 MG-5 MCG Tab PO SCH (10:53)
[2021-02-14] MEDS: Lidocaine 4% 1 each Patch TOP SCH (10:54)
[2021-02-14] MEDS: Formoterol/Mometasone 200-5 MCG 8.8 GM Inhaler IH SCH (10:54)
[2021-02-14] MEDS: Cholecalciferol (Vitamin D3) 25 MCG Tab PO SCH (10:55)
[2021-02-14] MEDS: Acetaminophen 325 MG Tab PO PRN (10:58)
--- NOTE | 2021-02-14 12:13 | DISCH ---
PRIMARY DISCHARGE DIAGNOSES: 1. Right intertrochanteric hip fracture, comminuted, status post intramedullary fixation on 02/07/2021. 2. Postoperative anemia requiring 2 units of blood in [place]. Hemoglobin here 9.5 on 02/12/2021 and 7.1 today with continued bleeding from her lower thigh incision. 3. Hypokalemia, replaced orally. Potassium 4.4 on discharge. 4. Essential hypertension, controlled on current medications. 5. Asthma. She has been getting nebulizers. That is stable. No exacerbation. 6. Coronary artery disease with stenting to the left anterior descending in 06/2020. 7. Aortic stenosis status post transcatheter aortic valve replacement in the spring of 2020. 8. Delirium from previous hip surgery in 12/2019, and then from her cardiac procedures this spring with underlying dementia, recently started on Aricept. 9. Likely osteoporosis with previous hip fractures and a Colles fracture. 10.Pulmonary nodules remotely. 11.Hyperlipidemia. 12.Impaired fasting glucose. 13.Obesity. 14.Postherpetic neuralgia. 15.Tachycardia after surgery, resolved. Heart rates have been improved here. 16.Chronic diastolic heart failure with ejection fraction 75%. She is on Lasix. 17.Deconditioning. 18. Dementia REASON FOR ADMISSION: On the date of admission, this 80-year-old female who is well known to our facility from rehab of her left hip fracture last year broke her right hip and had surgery in [place] and was transferred here for therapies. Unfortunately, she saturated her dressing 3 times overnight with a large clot on the right thigh lower incision and had continued bleeding and a hemoglobin drop of 2 g. Therefore, Orthopedics in [place] was contacted, who recommended transfer back for a further evaluation. The patient's lower extremity though was not swollen. She had good pulses. It was warm. She had been receiving oxycodone for pain control, but her last dose was given over 24 hours ago and she actually had not received any of her pain pills yet this morning or any of her other medications. She was having just a slight cough but no shortness of breath. She does have underlying asthma and has been having bowel movements. She was eating 100% of her meals, had 50% of breakfast today. OBJECTIVE: Vital Signs: At the time of transfer, her temperature was 98, her weight 87.7 kg, pulse 100, blood pressure 134/69, respiratory rate 20, and O2 of 94% on 2 L, but that was at night. She is not using oxygen during the day. Heart: Regular rate and rhythm without murmur. Lungs: Sounds are clear to auscultation bilaterally without crackles or wheezes. Abdomen: Nondistended, nontender. Extremities: Warm, dry. No edema in the ankles. No calf tenderness. Homans' sign negative, but she has numerous bruises to her arms. The hip incision is examined just partially as they had just re-dressed all the dressing and I could see the lower incision. It was not oozing currently. We had a plan to come back and recheck it later to see about further bleeding, but then prospects of transferring her back for Orthopedics care came up and we decided to leave the dressing in place. Mental Status: She is alert. She is aware she is in [place]. PLAN: The patient is being transferred to [place] for higher level of acute care. She will probably need blood transfusion and potentially even surgery and may return to [place] swing bed when medically stable. For deep vein thrombosis prophylaxis, she had only been on the low-dose aspirin and AMA stockings as she was having too much bleeding to accommodate other blood thinners. MKA: 02/14/2021 11:47:02 MODL: 02/14/2021 12:06:22 /[id number] JONAS
== END 2021-02-14 12:15 | disposition short-term general hospital (02) | DRG 560 ==
LOC: VM.MS 13:34
PROVIDERS: ADMIT Internal Medicine; ATTEND Internal Medicine
DX: Z47.89 Encounter for other orthopedic aftercare (principal); I50.32 Chronic diastolic (congestive) heart failure; E87.1 Hypo-osmolality and hyponatremia; F05 Delirium due to known physiological condition; B02.29 Other postherpetic nervous system involvement; I25.10 Atherosclerotic heart disease of native coronary artery without angina pectoris; J45.909 Unspecified asthma, uncomplicated; E78.5 Hyperlipidemia, unspecified; G30.1 Alzheimer's disease with late onset; F02.80 Dementia in other diseases classified elsewhere, unspecified severity, without behavioral disturbance, psychotic disturbance, mood disturbance, and anxiety; D64.9 Anemia, unspecified; R00.0 Tachycardia, unspecified; I11.0 Hypertensive heart disease with heart failure; E87.6 Hypokalemia; M80.851D Other osteoporosis with current pathological fracture, right femur, subsequent encounter for fracture with routine healing; R53.81 Other malaise; S72.141D Displaced intertrochanteric fracture of right femur, subsequent encounter for closed fracture with routine healing; E66.9 Obesity, unspecified; W18.30XD Fall on same level, unspecified, subsequent encounter; Z95.5 Presence of coronary angioplasty implant and graft; Z88.8 Allergy status to other drugs, medicaments and biological substances; Z88.5 Allergy status to narcotic agent; Z95.2 Presence of prosthetic heart valve; Z90.710 Acquired absence of both cervix and uterus; Z98.42 Cataract extraction status, left eye; Z98.41 Cataract extraction status, right eye; Z98.890 Other specified postprocedural states; Z68.35 Body mass index [BMI] 35.0-35.9, adult; Z79.01 Long term (current) use of anticoagulants
CPT/HCPCS: 36415; 80048; 82947; 83735; 85025; 85610; 85730; 86850; 86900; 86901; 94640; 94760; 97110-GP; 97162-GP; 97530-GP; A9270-GY; J7620-GY

== ENCOUNTER 2021-02-17 13:51 | Inpatient (IN) | payer MEDICARE, OTHER ==
[2021-02-17] MEDS ORDERED: Albuterol HFA 18 Gm Inhaler INH PRN (16:56)
[2021-02-17] MEDS ORDERED: Ondansetron 4 MG Tab.DIS PO PRN (17:31)
[2021-02-17] MEDS: Acetaminophen 325 MG Tab PO PRN (17:36)
[2021-02-17] MEDS: Calcium Carbonate/Vitamin D3 1250 MG-5 MCG Tab PO SCH (17:45)
[2021-02-17] MEDS: Albuterol/Ipratropium 3.0-0.5 MG/3 ML Neb Soln NEB SCH (18:14)
[2021-02-17] MEDS: Rosuvastatin 20 MG Tab PO SCH (20:33)
[2021-02-17] MEDS: Donepezil 5 MG Tab PO SCH (20:33)
[2021-02-17] MEDS: Docusate Sodium 100 MG Cap PO SCH (20:33)
[2021-02-17] MEDS: Formoterol/Mometasone 200-5 MCG 8.8 GM Inhaler IH SCH (20:33)
[2021-02-17] MEDS: Montelukast 10 MG Tab PO SCH (20:33)
[2021-02-17] MEDS: Acetaminophen/oxyCODONE 325-5 MG Tab PO PRN (20:43)
--- NOTE | 2021-02-18 00:38 | HP ---
CHIEF COMPLAINT: Right hip fracture, need for further therapies. HISTORY OF PRESENT ILLNESS: This is an 80-year-old female who was recently discharged to [facility] on 02/14 due to postoperative bleeding and hemoglobin of 7.1, was transferred back today for further therapies. The patient actually underwent her original surgery on 02/08, and she had received 2 units of blood prior to transfer to [place], but her right wound continued bleeding. It was thought that she may need further surgery. Therefore, she was transferred back to [place] and had 2 units of blood and hemoglobin was incredibly stable and improved today up to 13.3. She did have a white count up to 17.74, but has had no fevers. Sodium went back down to 130. She is on Lasix for diuresis. She had a bowel movement when she arrived. Her only complaint is pain. They had only been giving her Tylenol. ALLERGIES: Please see the detailed H and P by Dr. Godinez on her recent admission dated 02/12. MEDICATIONS: Please see the detailed H and P by Dr. Godinez on her recent admission dated 02/12. No med changes were made in [place]. PAST MEDICAL HISTORY: Please see the detailed H and P by Dr. Godinez on her recent admission dated 02/12. PAST SURGICAL HISTORY: Please see the detailed H and P by Dr. Godinez on her recent admission dated 02/12. SOCIAL HISTORY: Please see the detailed H and P by Dr. Godinez on her recent admission dated 02/12. FAMILY HISTORY: Please see the detailed H and P by Dr. Godinez on her recent admission dated 02/12. REVIEW OF SYSTEMS: General: The patient is not aware of any weight changes. No fever, no chills. HEENT: No trouble swallowing. Respiratory: No cough, no shortness of breath. Cardiac: No chest pain. Musculoskeletal: She has the right hip pain. Otherwise all systems reviewed and found to be negative. PHYSICAL EXAMINATION: Vital Signs: Today, her blood pressure is 143/66, respiratory rate 24, O2 of 94 on room air. She did have 96.3 temperature and pulse 91. Her weight is 79.9 kg. General: She is in no acute distress. Heart: Regular rate and rhythm. Lungs: Sounds are clear to auscultation bilaterally without crackles or wheezes. Abdomen: Nondistended, nontender. Extremities: Warm and dry. She does have a little edema in that right thigh, but no significant bruising. The incisions are intact. There is no further bleeding. Her calf is nontender. Homans negative. Mental Status: Alert and orientated x3. ASSESSMENT AND PLAN: 1. Right hip fracture, intertrochanteric, status post a TNF back on 02/08. We will continue with physical therapy. She is weightbearing as tolerated, and she will follow up with Orthopedics. Maroa will be removed on 02/21. 2. Postoperative anemia, resolved, with transfusion. We will check a hemoglobin again in a few days. 3. Hyponatremia. We will continue her Lasix for fluid management, and we will repeat BMP in a few days. 4. Chronic diastolic heart failure and coronary disease. She will continue her medical management. We will increase Lasix if needed. Her last ejection fraction was 75% in July. 5. Dementia. She will continue her home medications. 6. Obesity. 7. Asthma, controlled. 8. Likely osteoporosis. She never had her DEXA as planned. We will need to get that done and start her on osteoporosis treatment, considering Forteo. 9. Impaired fasting glucose. Accu-Cheks were good on her last stay. 10.Hyperlipidemia. PLAN: The patient will be continued on swing bed cares. We will get therapy involved to work with her. Anticipate a slow progress and discharge home with family when able. For DVT prophylaxis, I will put her on SCDs. When I am confident that labs are stable, and she has not been bleeding, I will start her on Lovenox 40 mg daily. She is already on aspirin given her underlying cardiac conditions and previous TAVR procedure. MKA: 02/17/2021 21:02:47 MODL: 02/18/2021 00:32:17 /[id number]
[2021-02-18] MEDS: Albuterol/Ipratropium 3.0-0.5 MG/3 ML Neb Soln NEB SCH ×4 (02:03→18:56)
[2021-02-18] MEDS: Formoterol/Mometasone 200-5 MCG 8.8 GM Inhaler IH SCH ×2 (07:52→20:24)
[2021-02-18] MEDS: Cholecalciferol (Vitamin D3) 25 MCG Tab PO SCH (07:52)
[2021-02-18] MEDS: Psyllium Husk Powder Sugar Free 5.85 GM Packet PO SCH (07:52)
[2021-02-18] MEDS: Potassium Chloride 10 MEQ Tab.ER PO SCH (07:52)
[2021-02-18] MEDS: Furosemide 20 MG Tab PO SCH (07:54)
[2021-02-18] MEDS: Sertraline 50 MG Tab PO SCH (07:54)
[2021-02-18] MEDS: Calcium Carbonate/Vitamin D3 1250 MG-5 MCG Tab PO SCH ×2 (07:54→17:38)
[2021-02-18] MEDS: Multivitamins with Iron/Calcium/Folic Acid/Minerals Tab PO SCH (07:54)
[2021-02-18] MEDS: Aspirin 81 MG Tab.EC PO SCH (07:54)
[2021-02-18] MEDS: Docusate Sodium 100 MG Cap PO SCH ×2 (07:54→20:22)
[2021-02-18] MEDS: Ferrous Sulfate 325 MG Tab PO SCH (07:54)
[2021-02-18] MEDS: Magnesium Oxide 400 MG Tab PO SCH (07:55)
[2021-02-18] MEDS: Lidocaine 4% 1 each Patch TOP SCH (07:55)
[2021-02-18] MEDS: Acetaminophen 325 MG Tab PO PRN ×3 (07:57→20:22)
[2021-02-18] MEDS: Acetaminophen/oxyCODONE 325-5 MG Tab PO PRN ×2 (13:15→22:46)
[2021-02-18] MEDS: Rosuvastatin 20 MG Tab PO SCH (20:21)
[2021-02-18] MEDS: Donepezil 5 MG Tab PO SCH (20:22)
[2021-02-18] MEDS: Montelukast 10 MG Tab PO SCH (20:22)
[2021-02-19] MEDS: Albuterol/Ipratropium 3.0-0.5 MG/3 ML Neb Soln NEB SCH ×4 (02:05→18:12)
[2021-02-19] MEDS: Potassium Chloride 10 MEQ Tab.ER PO SCH (08:37)
[2021-02-19] MEDS: Lidocaine 4% 1 each Patch TOP SCH (08:37)
[2021-02-19] MEDS: Psyllium Husk Powder Sugar Free 5.85 GM Packet PO SCH (08:37)
[2021-02-19] MEDS: Multivitamins with Iron/Calcium/Folic Acid/Minerals Tab PO SCH (08:38)
[2021-02-19] MEDS: Cholecalciferol (Vitamin D3) 25 MCG Tab PO SCH (08:38)
[2021-02-19] MEDS: Furosemide 20 MG Tab PO SCH (08:38)
[2021-02-19] MEDS: Docusate Sodium 100 MG Cap PO SCH ×2 (08:38→19:48)
[2021-02-19] MEDS: Aspirin 81 MG Tab.EC PO SCH (08:38)
[2021-02-19] MEDS: Calcium Carbonate/Vitamin D3 1250 MG-5 MCG Tab PO SCH ×2 (08:39→18:12)
[2021-02-19] MEDS: Sertraline 50 MG Tab PO SCH (08:39)
[2021-02-19] MEDS: Magnesium Oxide 400 MG Tab PO SCH (08:39)
[2021-02-19] MEDS: Ferrous Sulfate 325 MG Tab PO SCH (08:39)
[2021-02-19] MEDS: Formoterol/Mometasone 200-5 MCG 8.8 GM Inhaler IH SCH ×2 (08:40→19:49)
[2021-02-19] MEDS: Acetaminophen 325 MG Tab PO PRN ×2 (13:07→19:48)
[2021-02-19] MEDS: Acetaminophen/oxyCODONE 325-5 MG Tab PO PRN (15:58)
[2021-02-19] MEDS: Rosuvastatin 20 MG Tab PO SCH (19:47)
[2021-02-19] MEDS: Donepezil 5 MG Tab PO SCH (19:48)
[2021-02-19] MEDS: Montelukast 10 MG Tab PO SCH (19:48)
[2021-02-20] MEDS: Albuterol/Ipratropium 3.0-0.5 MG/3 ML Neb Soln NEB SCH ×4 (02:02→18:27)
[2021-02-20 07:13] LABS: CHLORIDE,CL 101 mmol/L (98-107); SODIUM,NA 135 mmol/L (136-145)
[2021-02-20 07:15] LABS: ANION GAP 11.4 mmol/L (5-15)
[2021-02-20] MEDS: Psyllium Husk Powder Sugar Free 5.85 GM Packet PO SCH (08:43)
[2021-02-20] MEDS: Calcium Carbonate/Vitamin D3 1250 MG-5 MCG Tab PO SCH ×2 (08:44→17:52)
[2021-02-20] MEDS: Acetaminophen 325 MG Tab PO PRN (08:44)
[2021-02-20] MEDS: Docusate Sodium 100 MG Cap PO SCH ×2 (08:44→22:27)
[2021-02-20] MEDS: Aspirin 81 MG Tab.EC PO SCH (08:44)
[2021-02-20] MEDS: Magnesium Oxide 400 MG Tab PO SCH (08:44)
[2021-02-20] MEDS: Cholecalciferol (Vitamin D3) 25 MCG Tab PO SCH (08:44)
[2021-02-20] MEDS: Ferrous Sulfate 325 MG Tab PO SCH (08:44)
[2021-02-20] MEDS: Potassium Chloride 10 MEQ Tab.ER PO SCH (08:44)
[2021-02-20] MEDS: Sertraline 50 MG Tab PO SCH (08:44)
[2021-02-20] MEDS: Multivitamins with Iron/Calcium/Folic Acid/Minerals Tab PO SCH (08:44)
[2021-02-20] MEDS: Furosemide 20 MG Tab PO SCH (08:45)
[2021-02-20] MEDS: Lidocaine 4% 1 each Patch TOP SCH (08:48)
[2021-02-20] MEDS: Formoterol/Mometasone 200-5 MCG 8.8 GM Inhaler IH SCH ×2 (08:49→22:28)
[2021-02-20] MEDS ORDERED: Furosemide 20 MG Tab PO ONE (09:00)
[2021-02-20] MEDS: Acetaminophen/oxyCODONE 325-5 MG Tab PO PRN ×2 (12:56→22:25)
[2021-02-20] MEDS: Enoxaparin 40 MG/0.4 ML Syringe SUBCUT SCH (16:24)
--- NOTE | 2021-02-20 16:35 | PN ---
Progress Note for LARISSA BAKER Date: 02/20/2021 Room #: VM.215 SUBJECTIVE: This is an 80-year-old female admitted to swing bed after a right hip surgery for fracture earlier in January. She had to be sent back to [place] and was transfused. Her hemoglobin is stable today, and she is now ready to be restarted on DVT prophylaxis. She previously was on Plavix for history of stents, but it was over 6 months ago. She has not had any chest pain. She feels her breathing is good. She denies cough. She is doing a little wheezing today, and her blood pressure is running higher. She does have underlying asthma and has been on nebulizers. Otherwise, her pain is only in that right hip. She has been getting p.r.n. Tylenol for that and did receive a Percocet yesterday afternoon. She has not been getting more than 2 a day. She is also on aspirin. She is answering questions appropriately. She has not had any fever or chills. She feels she is resting good at night. She is eating between 50% to 100% of meals. She is having bowel movements. OBJECTIVE: Vital Signs: Her temperature is 97.4, pulse 92, blood pressure 144/68, respiratory rate 18, and O2 of 92% on room air. General: She is in no acute distress. Heart: Her heart is regular rate and rhythm. S1, S2 without murmur. Lungs: Lung sounds are decreased with expiratory wheezing. Abdomen: Positive bowel sounds. Soft, nondistended, and nontender. Extremities: Warm and dry. No edema in the ankles. No calf tenderness. Homans negative. She does have some bruising in the right leg. She has some redness on the outside of her incision, and it is itching. It looks like she is reacting to the dressing. The incision itself shows lida intact. No redness, no drainage. Mental Status: She is alert and orientated x3. She has been participating in therapies, but OT felt that she did not require any further occupational therapy. LABORATORY DATA: Lab work today white count 10.1, hemoglobin 12.2, and platelets 626. Sodium 135, potassium 4.4, chloride 101, bicarbonate 27, BUN 8, creatinine 0.6, glucose 102, and calcium 8.6. ASSESSMENT: 1. Hip fracture, status post TNF on 02/08 to the right hip. She is doing well, working with therapy. She will see Ortho tomorrow for staple removal. 2. Postoperative anemia, status post transfusion of 2 units x2. Hemoglobin is stable at 12.2. We will start Lovenox for DVT prophylaxis. 3. Hyponatremia, resolved. 4. Chronic diastolic heart failure and coronary disease with mildly elevated blood pressure and wheezing. I am going to increase her Lasix to 20 mg daily. 5. Essential hypertension. Continue medications and increase Lasix to 20 mg daily. 6. Dementia. Continue home medications. 7. Obesity. 8. Asthma. She has nebulizers available. 9. Osteoporosis. 10.Impaired fasting glucose. Blood sugars on lab works have been good. 11.Hyperlipidemia. PLAN: The patient will continue on swing bed cares. She will continue to work with physical therapy for DVT prophylaxis. I am starting her on Lovenox, and I will repeat her lab work on Wednesday and also start her on incentive spirometry. MKA: 02/20/2021 15:51:49 MODL: 02/20/2021 16:29:16 /[id number]
[2021-02-20] MEDS: Montelukast 10 MG Tab PO SCH (22:23)
[2021-02-20] MEDS: Acetaminophen 325 MG Tab PO SCH (22:23)
[2021-02-20] MEDS: Donepezil 5 MG Tab PO SCH (22:25)
[2021-02-20] MEDS: Rosuvastatin 20 MG Tab PO SCH (22:25)
[2021-02-21] MEDS: Albuterol/Ipratropium 3.0-0.5 MG/3 ML Neb Soln NEB SCH ×4 (03:49→18:34)
[2021-02-21] MEDS: Acetaminophen/oxyCODONE 325-5 MG Tab PO PRN ×2 (05:58→17:52)
[2021-02-21] MEDS: Potassium Chloride 10 MEQ Tab.ER PO SCH (07:48)
[2021-02-21] MEDS: Calcium Carbonate/Vitamin D3 1250 MG-5 MCG Tab PO SCH ×2 (07:48→17:38)
[2021-02-21] MEDS: Ferrous Sulfate 325 MG Tab PO SCH (07:48)
[2021-02-21] MEDS: Furosemide 20 MG Tab PO SCH (07:48)
[2021-02-21] MEDS: Docusate Sodium 100 MG Cap PO SCH ×2 (07:48→19:34)
[2021-02-21] MEDS: Magnesium Oxide 400 MG Tab PO SCH (07:48)
[2021-02-21] MEDS: Sertraline 50 MG Tab PO SCH (07:48)
[2021-02-21] MEDS: Multivitamins with Iron/Calcium/Folic Acid/Minerals Tab PO SCH (07:48)
[2021-02-21] MEDS: Cholecalciferol (Vitamin D3) 25 MCG Tab PO SCH (07:48)
[2021-02-21] MEDS: Acetaminophen 325 MG Tab PO SCH ×3 (07:48→19:34)
[2021-02-21] MEDS: Psyllium Husk Powder Sugar Free 5.85 GM Packet PO SCH (07:48)
[2021-02-21] MEDS: Formoterol/Mometasone 200-5 MCG 8.8 GM Inhaler IH SCH ×2 (07:49→19:35)
[2021-02-21] MEDS: Lidocaine 4% 1 each Patch TOP SCH (07:49)
[2021-02-21] MEDS: Aspirin 81 MG Tab.EC PO SCH (07:56)
[2021-02-21] MEDS: Enoxaparin 40 MG/0.4 ML Syringe SUBCUT SCH (17:37)
[2021-02-21] MEDS: Montelukast 10 MG Tab PO SCH (19:34)
[2021-02-21] MEDS: Rosuvastatin 20 MG Tab PO SCH (19:34)
[2021-02-21] MEDS: Donepezil 5 MG Tab PO SCH (19:37)
[2021-02-22] MEDS: Albuterol/Ipratropium 3.0-0.5 MG/3 ML Neb Soln NEB SCH ×4 (00:55→18:01)
[2021-02-22] MEDS: Acetaminophen 325 MG Tab PO SCH ×3 (12:04→19:12)
[2021-02-22] MEDS: Lidocaine 4% 1 each Patch TOP SCH (12:13)
[2021-02-22] MEDS: Calcium Carbonate/Vitamin D3 1250 MG-5 MCG Tab PO SCH ×2 (12:13→18:01)
[2021-02-22] MEDS: Aspirin 81 MG Tab.EC PO SCH (12:14)
[2021-02-22] MEDS: Docusate Sodium 100 MG Cap PO SCH ×2 (12:14→19:13)
[2021-02-22] MEDS: Psyllium Husk Powder Sugar Free 5.85 GM Packet PO SCH (12:14)
[2021-02-22] MEDS: Ferrous Sulfate 325 MG Tab PO SCH (12:14)
[2021-02-22] MEDS: Potassium Chloride 10 MEQ Tab.ER PO SCH (12:14)
[2021-02-22] MEDS: Furosemide 20 MG Tab PO SCH (12:14)
[2021-02-22] MEDS: Magnesium Oxide 400 MG Tab PO SCH (12:14)
[2021-02-22] MEDS: Formoterol/Mometasone 200-5 MCG 8.8 GM Inhaler IH SCH ×2 (12:14→19:14)
[2021-02-22] MEDS: Cholecalciferol (Vitamin D3) 25 MCG Tab PO SCH (12:15)
[2021-02-22] MEDS: Multivitamins with Iron/Calcium/Folic Acid/Minerals Tab PO SCH (12:15)
[2021-02-22] MEDS: Sertraline 50 MG Tab PO SCH (12:15)
[2021-02-22] MEDS: Enoxaparin 40 MG/0.4 ML Syringe SUBCUT SCH (15:34)
[2021-02-22] MEDS: Montelukast 10 MG Tab PO SCH (19:12)
[2021-02-22] MEDS: Donepezil 5 MG Tab PO SCH (19:12)
[2021-02-22] MEDS: Rosuvastatin 20 MG Tab PO SCH (19:12)
[2021-02-23] MEDS: Albuterol/Ipratropium 3.0-0.5 MG/3 ML Neb Soln NEB SCH ×4 (00:46→18:05)
[2021-02-23] MEDS: Cholecalciferol (Vitamin D3) 25 MCG Tab PO SCH (09:06)
[2021-02-23] MEDS: Psyllium Husk Powder Sugar Free 5.85 GM Packet PO SCH (09:06)
[2021-02-23] MEDS: Lidocaine 4% 1 each Patch TOP SCH (09:06)
[2021-02-23] MEDS: Furosemide 20 MG Tab PO SCH ×2 (09:06→12:22)
[2021-02-23] MEDS: Sertraline 50 MG Tab PO SCH (09:07)
[2021-02-23] MEDS: Multivitamins with Iron/Calcium/Folic Acid/Minerals Tab PO SCH (09:07)
[2021-02-23] MEDS: Aspirin 81 MG Tab.EC PO SCH (09:07)
[2021-02-23] MEDS: Acetaminophen 325 MG Tab PO SCH ×3 (09:07→20:06)
[2021-02-23] MEDS: Docusate Sodium 100 MG Cap PO SCH ×2 (09:08→20:07)
[2021-02-23] MEDS: Potassium Chloride 10 MEQ Tab.ER PO SCH (09:08)
[2021-02-23] MEDS: Calcium Carbonate/Vitamin D3 1250 MG-5 MCG Tab PO SCH ×2 (09:08→17:04)
[2021-02-23] MEDS: Magnesium Oxide 400 MG Tab PO SCH (09:08)
[2021-02-23] MEDS: Ferrous Sulfate 325 MG Tab PO SCH (09:08)
[2021-02-23] MEDS: Formoterol/Mometasone 200-5 MCG 8.8 GM Inhaler IH SCH ×2 (09:10→20:05)
--- NOTE | 2021-02-23 11:51 | PN ---
Progress Note for LARISSA BAKER Date: 02/23/2021 Room #: VM.215 SUBJECTIVE: This is an 80-year-old on swing bed, recovering from a right hip fracture. The patient continues to have some discomfort, but it is no worse. She has not used an oxycodone in a couple of days. She denies that she is having any trouble with breathing, but she is doing a lot of coughing despite getting her neb this morning for asthma and she has been peeing considerably, especially at night. She was incontinent several times. She is not having any pain with urination. She is not having any fever or chills. She went to see her orthopedic clinic and they thought things were going okay, but did not remove her lida. OBJECTIVE: Vital Signs: Her weight is 81.6 kg, 98 temp, pulse 93, blood pressure 150/73, respiratory rate 20, and O2 of 95% on room air. General: She is in no acute distress. Heart: Regular rate and rhythm. Lungs: Her lung sounds do show some expiratory crackles in the bases. No wheezing. Abdomen: Nondistended, nontender. Extremities: Warm and dry. She has no edema in the calves. No calf tenderness. She is now on Lovenox. Mental Status: She is alert. She is happy to see her family when they came in today. ASSESSMENT: 1. Two weeks postop from a right hip surgery, trochanteric nail fixation for fracture, intertrochanteric. Remove lida today. 2. Postoperative anemia, resolved. She did get a total of 5 units per [place] records after the surgery. 3. Hyponatremia, resolved. 4. Chronic diastolic heart failure with coronary disease. The patient has continued elevated blood pressures and coughing. We will get a chest x-ray today and I will increase her Lasix up to 40 mg daily. Lab work is planned tomorrow to include a proBNP. 5. Essential hypertension. She is on her home medications and Lasix. 6. Dementia. Home medications. 7. Obesity. 8. Asthma. She has inhalers available. 9. Osteoporosis. 10.Impaired fasting glucose. 11.Hyperlipidemia. 12.Urinary incontinence. Staff reported that she sometimes just did not want to get out of bed or could not quick enough, so we will work on that. We will check a UA and bladder scans. PLAN: The patient will continue on swing bed cares. We will get a chest x-ray today when x-ray comes in. We will get lab tomorrow. We will continue Lovenox for DVT prophylaxis and we will repeat all lab work for her on Wednesday. MKA: 02/23/2021 11:22:00 MODL: 02/23/2021 11:46:42 /[id number]
--- NOTE | 2021-02-23 16:03 | CR ---
[id number] RAD/RAD Chest PA or AP 1V EXAM: RAD Chest PA or AP 1V INDICATION: COUGH. COMPARISON: December 21, 2019. DISCUSSION: Cardiomediastinal silhouette is stable in size and contour. Small left pleural effusion. No pneumothorax. Pulmonary hyperinflation. IMPRESSION: Small left pleural effusion. Sonny Arguello DO 02/23/21 [id number] Thank you for allowing us to participate in the care of your patient.
[2021-02-23] MEDS: Enoxaparin 40 MG/0.4 ML Syringe SUBCUT SCH (17:03)
[2021-02-23] MEDS: Rosuvastatin 20 MG Tab PO SCH (20:07)
[2021-02-23] MEDS: Montelukast 10 MG Tab PO SCH (20:07)
[2021-02-23] MEDS: Donepezil 5 MG Tab PO SCH (20:07)
[2021-02-24] MEDS: Albuterol/Ipratropium 3.0-0.5 MG/3 ML Neb Soln NEB SCH ×4 (01:01→18:05)
[2021-02-24 07:06] LABS: CHLORIDE,CL 100 mmol/L (98-107); SODIUM,NA 135 mmol/L (136-145)
[2021-02-24 07:09] LABS: ANION GAP 9.9 mmol/L (5-15)
[2021-02-24] MEDS: Lidocaine 4% 1 each Patch TOP SCH (08:34)
[2021-02-24] MEDS: Potassium Chloride 10 MEQ Tab.ER PO SCH (08:35)
[2021-02-24] MEDS: Ferrous Sulfate 325 MG Tab PO SCH (08:35)
[2021-02-24] MEDS: Cholecalciferol (Vitamin D3) 25 MCG Tab PO SCH (08:35)
[2021-02-24] MEDS: Furosemide 20 MG Tab PO SCH (08:35)
[2021-02-24] MEDS: Docusate Sodium 100 MG Cap PO SCH ×2 (08:35→19:31)
[2021-02-24] MEDS: Magnesium Oxide 400 MG Tab PO SCH (08:35)
[2021-02-24] MEDS: Multivitamins with Iron/Calcium/Folic Acid/Minerals Tab PO SCH (08:35)
[2021-02-24] MEDS: Calcium Carbonate/Vitamin D3 1250 MG-5 MCG Tab PO SCH ×2 (08:35→17:37)
[2021-02-24] MEDS: Sertraline 50 MG Tab PO SCH (08:35)
[2021-02-24] MEDS: Aspirin 81 MG Tab.EC PO SCH (08:35)
[2021-02-24] MEDS: Psyllium Husk Powder Sugar Free 5.85 GM Packet PO SCH (08:36)
[2021-02-24] MEDS: Acetaminophen 325 MG Tab PO SCH ×3 (08:36→19:29)
[2021-02-24] MEDS: Formoterol/Mometasone 200-5 MCG 8.8 GM Inhaler IH SCH ×2 (08:37→19:32)
[2021-02-24] MEDS: Acetaminophen/oxyCODONE 325-5 MG Tab PO PRN (10:31)
[2021-02-24] MEDS: Enoxaparin 40 MG/0.4 ML Syringe SUBCUT SCH (16:16)
[2021-02-24] MEDS: Donepezil 5 MG Tab PO SCH (19:31)
[2021-02-24] MEDS: Rosuvastatin 20 MG Tab PO SCH (19:31)
[2021-02-24] MEDS: Montelukast 10 MG Tab PO SCH (19:31)
[2021-02-25] MEDS: Albuterol/Ipratropium 3.0-0.5 MG/3 ML Neb Soln NEB SCH ×4 (00:29→18:16)
[2021-02-25] MEDS: Lidocaine 4% 1 each Patch TOP SCH (08:08)
[2021-02-25] MEDS: Potassium Chloride 10 MEQ Tab.ER PO SCH (08:09)
[2021-02-25] MEDS: Docusate Sodium 100 MG Cap PO SCH ×2 (08:09→20:16)
[2021-02-25] MEDS: Calcium Carbonate/Vitamin D3 1250 MG-5 MCG Tab PO SCH ×2 (08:09→17:48)
[2021-02-25] MEDS: Ferrous Sulfate 325 MG Tab PO SCH (08:09)
[2021-02-25] MEDS: Aspirin 81 MG Tab.EC PO SCH (08:09)
[2021-02-25] MEDS: Acetaminophen 325 MG Tab PO SCH ×3 (08:10→20:10)
[2021-02-25] MEDS: Psyllium Husk Powder Sugar Free 5.85 GM Packet PO SCH (08:10)
[2021-02-25] MEDS: Multivitamins with Iron/Calcium/Folic Acid/Minerals Tab PO SCH (08:10)
[2021-02-25] MEDS: Magnesium Oxide 400 MG Tab PO SCH (08:10)
[2021-02-25] MEDS: Furosemide 20 MG Tab PO SCH (08:12)
[2021-02-25] MEDS: Cholecalciferol (Vitamin D3) 25 MCG Tab PO SCH (08:12)
[2021-02-25] MEDS: Sertraline 50 MG Tab PO SCH (08:12)
[2021-02-25] MEDS: Formoterol/Mometasone 200-5 MCG 8.8 GM Inhaler IH SCH ×2 (08:13→20:11)
[2021-02-25] MEDS: Enoxaparin 40 MG/0.4 ML Syringe SUBCUT SCH (16:22)
[2021-02-25] MEDS: Montelukast 10 MG Tab PO SCH (20:10)
[2021-02-25] MEDS: Rosuvastatin 20 MG Tab PO SCH (20:10)
[2021-02-25] MEDS: Donepezil 5 MG Tab PO SCH (20:10)
[2021-02-26] MEDS: Albuterol/Ipratropium 3.0-0.5 MG/3 ML Neb Soln NEB SCH ×4 (00:26→18:34)
[2021-02-26] MEDS: Lidocaine 4% 1 each Patch TOP SCH (08:58)
[2021-02-26] MEDS: Formoterol/Mometasone 200-5 MCG 8.8 GM Inhaler IH SCH ×2 (08:58→19:31)
[2021-02-26] MEDS: Docusate Sodium 100 MG Cap PO SCH ×2 (08:59→19:33)
[2021-02-26] MEDS: Psyllium Husk Powder Sugar Free 5.85 GM Packet PO SCH (08:59)
[2021-02-26] MEDS: Ferrous Sulfate 325 MG Tab PO SCH (09:00)
[2021-02-26] MEDS: Multivitamins with Iron/Calcium/Folic Acid/Minerals Tab PO SCH (09:00)
[2021-02-26] MEDS: Acetaminophen 325 MG Tab PO SCH ×3 (09:00→19:29)
[2021-02-26] MEDS: Cholecalciferol (Vitamin D3) 25 MCG Tab PO SCH (09:00)
[2021-02-26] MEDS: Furosemide 20 MG Tab PO SCH (09:00)
[2021-02-26] MEDS: Sertraline 50 MG Tab PO SCH (09:00)
[2021-02-26] MEDS: Magnesium Oxide 400 MG Tab PO SCH (09:00)
[2021-02-26] MEDS: Aspirin 81 MG Tab.EC PO SCH (09:00)
[2021-02-26] MEDS: Calcium Carbonate/Vitamin D3 1250 MG-5 MCG Tab PO SCH ×2 (09:00→17:09)
[2021-02-26] MEDS: Potassium Chloride 10 MEQ Tab.ER PO SCH (09:00)
[2021-02-26] MEDS: Enoxaparin 40 MG/0.4 ML Syringe SUBCUT SCH (17:09)
[2021-02-26] MEDS: Donepezil 5 MG Tab PO SCH (19:29)
[2021-02-26] MEDS: Rosuvastatin 20 MG Tab PO SCH (19:29)
[2021-02-26] MEDS: Montelukast 10 MG Tab PO SCH (19:29)
[2021-02-27] MEDS: Albuterol/Ipratropium 3.0-0.5 MG/3 ML Neb Soln NEB SCH ×4 (00:27→18:58)
[2021-02-27 07:24] LABS: CHLORIDE,CL 98 mmol/L (98-107); SODIUM,NA 133 mmol/L (136-145)
[2021-02-27 07:25] LABS: ANION GAP 10.7 mmol/L (5-15)
[2021-02-27] MEDS: Lidocaine 4% 1 each Patch TOP SCH (08:56)
[2021-02-27] MEDS: Formoterol/Mometasone 200-5 MCG 8.8 GM Inhaler IH SCH ×2 (08:56→19:39)
[2021-02-27] MEDS: Psyllium Husk Powder Sugar Free 5.85 GM Packet PO SCH (08:57)
[2021-02-27] MEDS: Sertraline 50 MG Tab PO SCH (08:57)
[2021-02-27] MEDS: Docusate Sodium 100 MG Cap PO SCH ×2 (08:58→19:40)
[2021-02-27] MEDS: Aspirin 81 MG Tab.EC PO SCH (08:58)
[2021-02-27] MEDS: Potassium Chloride 10 MEQ Tab.ER PO SCH (08:58)
[2021-02-27] MEDS: Magnesium Oxide 400 MG Tab PO SCH (08:58)
[2021-02-27] MEDS: Ferrous Sulfate 325 MG Tab PO SCH (08:58)
[2021-02-27] MEDS: Acetaminophen 325 MG Tab PO SCH ×3 (08:58→19:38)
[2021-02-27] MEDS: Cholecalciferol (Vitamin D3) 25 MCG Tab PO SCH (08:58)
[2021-02-27] MEDS: Multivitamins with Iron/Calcium/Folic Acid/Minerals Tab PO SCH (08:58)
[2021-02-27] MEDS: Calcium Carbonate/Vitamin D3 1250 MG-5 MCG Tab PO SCH ×2 (08:59→17:34)
[2021-02-27] MEDS: Furosemide 40 MG Tab PO SCH ×2 (09:00→12:02)
[2021-02-27] MEDS: Furosemide 20 MG Tab PO SCH (09:05)
[2021-02-27] MEDS: Enoxaparin 40 MG/0.4 ML Syringe SUBCUT SCH (17:34)
[2021-02-27] MEDS: Rosuvastatin 20 MG Tab PO SCH (19:38)
[2021-02-27] MEDS: Montelukast 10 MG Tab PO SCH (19:38)
[2021-02-27] MEDS: Donepezil 5 MG Tab PO SCH (19:38)
[2021-02-28] MEDS: Albuterol/Ipratropium 3.0-0.5 MG/3 ML Neb Soln NEB SCH ×4 (00:16→18:59)
[2021-02-28] MEDS: Formoterol/Mometasone 200-5 MCG 8.8 GM Inhaler IH SCH ×2 (08:10→21:05)
[2021-02-28] MEDS: Psyllium Husk Powder Sugar Free 5.85 GM Packet PO SCH (08:11)
[2021-02-28] MEDS: Lidocaine 4% 1 each Patch TOP SCH (08:11)
[2021-02-28] MEDS: Potassium Chloride 10 MEQ Tab.ER PO SCH (08:12)
[2021-02-28] MEDS: Sertraline 50 MG Tab PO SCH (08:12)
[2021-02-28] MEDS: Cholecalciferol (Vitamin D3) 25 MCG Tab PO SCH (08:12)
[2021-02-28] MEDS: Multivitamins with Iron/Calcium/Folic Acid/Minerals Tab PO SCH (08:12)
[2021-02-28] MEDS: Furosemide 40 MG Tab PO SCH ×2 (08:12→15:15)
[2021-02-28] MEDS: Docusate Sodium 100 MG Cap PO SCH ×2 (08:12→21:05)
[2021-02-28] MEDS: Aspirin 81 MG Tab.EC PO SCH (08:12)
[2021-02-28] MEDS: Ferrous Sulfate 325 MG Tab PO SCH (08:12)
[2021-02-28] MEDS: Acetaminophen 325 MG Tab PO SCH ×3 (08:13→21:04)
[2021-02-28] MEDS: Calcium Carbonate/Vitamin D3 1250 MG-5 MCG Tab PO SCH ×2 (08:13→18:15)
[2021-02-28] MEDS: Magnesium Oxide 400 MG Tab PO SCH (08:13)
[2021-02-28] MEDS: Enoxaparin 40 MG/0.4 ML Syringe SUBCUT SCH (18:15)
--- NOTE | 2021-02-28 18:25 | PN ---
Progress Note for LARISSA BAKER Date: 02/28/2021 Room #: VM.215 SUBJECTIVE: 80-year-old seen today on swing bed. The patient has had increase in her furosemide again yesterday due to elevated blood pressures and concern for CHF with sodium down to 133 on labs. The patient feels like she is breathing a little better. She is making a lot a urine. She is still having some pain in her hip, but has not required the oxycodone for four days. She is on scheduled and p.r.n. Tylenol. She actually has not taken any extra PRN's. She is also getting her nebulizer. She has underlying asthma. Her family just visited this afternoon with her . The patient has been eating well, 80% to 100% of her meals. Last bowel movement was on 02/26/2021. She is on a bowel regimen. OBJECTIVE: Vital Signs: Her temperature is 97.6, pulse 92, blood pressure 132/60, respiratory rate 16, O2 of 92% on room air. Weight 80 kg. General: She is in no acute distress. Heart: Regular rate and rhythm. Lungs: Lung sounds are slightly decreased in the bases, but no crackles, no wheezes. Abdomen: Positive bowel sounds. It is soft, nondistended, nontender. Extremities: She does have some bruising from her Lovenox injection. Her hip is just felt externally. There is no swelling. No tenderness to palpation. No redness. No warmth on the leg. She has no calf tenderness. Mental Status: She is alert. She is aware she is in the hospital. LAB WORK: Again yesterday 7.2 white count, hemoglobin 12.1, platelets 580. Sodium 133, potassium 3.7, chloride 98, bicarb 28, BUN 11, creatinine 0.5, calcium 9, and glucose 94. ProBNP was actually, on 02/24/2021, not elevated at 215. ASSESSMENT: 1. Postoperative from a right hip fracture, almost three weeks postop. She has had a nail fixation intertrochanteric fracture surgery. 2. Postoperative anemia, resolved. We will stop her multivitamin with iron. 3. Hyponatremia, mild. 4. Chronic diastolic heart failure and coronary artery disease, stable. We will continue current management. 5. Essential hypertension, improved on increased Lasix. 6. Dementia. She is on her home medications. We will continue supportive cares. 7. Deep venous thrombosis prophylaxis. She is now on Lovenox. She will get lab work Wednesday. 8. Obesity. 9. Asthma, on inhalers and nebulizers. 10.Osteoporosis. 11.Impaired fasting glucose. 12.Hyperlipidemia. 13.Urinary incontinence. PLAN: The patient will continue swing bed cares. We will continue Lovenox for DVT prophylaxis until at least 30 days after her procedure. We will continue her up and working with therapies. Lasix will continue at 40 mg twice daily and we will again repeat lab work Wednesday. She did have a UA last weekend that was negative for infection. MKA: 02/28/2021 17:04:44 MODL: 02/28/2021 18:20:05 /[id number] MTDD
[2021-02-28] MEDS: Montelukast 10 MG Tab PO SCH (21:05)
[2021-02-28] MEDS: Donepezil 5 MG Tab PO SCH (21:05)
[2021-02-28] MEDS: Rosuvastatin 20 MG Tab PO SCH (21:05)
[2021-03-01] MEDS: Albuterol/Ipratropium 3.0-0.5 MG/3 ML Neb Soln NEB SCH ×4 (00:08→18:05)
[2021-03-01] MEDS: Psyllium Husk Powder Sugar Free 5.85 GM Packet PO SCH (07:38)
[2021-03-01] MEDS: Acetaminophen 325 MG Tab PO SCH ×2 (07:38→12:19)
[2021-03-01] MEDS: Cholecalciferol (Vitamin D3) 25 MCG Tab PO SCH (07:39)
[2021-03-01] MEDS: Potassium Chloride 10 MEQ Tab.ER PO SCH (07:39)
[2021-03-01] MEDS: Docusate Sodium 100 MG Cap PO SCH ×2 (07:39→20:17)
[2021-03-01] MEDS: Aspirin 81 MG Tab.EC PO SCH (07:40)
[2021-03-01] MEDS: Furosemide 40 MG Tab PO SCH ×2 (07:40→12:19)
[2021-03-01] MEDS: Magnesium Oxide 400 MG Tab PO SCH (07:40)
[2021-03-01] MEDS: Sertraline 50 MG Tab PO SCH (07:40)
[2021-03-01] MEDS: Calcium Carbonate/Vitamin D3 1250 MG-5 MCG Tab PO SCH ×2 (07:40→18:05)
[2021-03-01] MEDS: Formoterol/Mometasone 200-5 MCG 8.8 GM Inhaler IH SCH ×2 (07:41→20:30)
[2021-03-01] MEDS: Lidocaine 4% 1 each Patch TOP SCH (07:41)
[2021-03-01] MEDS: Acetaminophen/oxyCODONE 325-5 MG Tab PO PRN (16:16)
[2021-03-01] MEDS: Enoxaparin 40 MG/0.4 ML Syringe SUBCUT SCH (16:16)
[2021-03-01] MEDS: Donepezil 5 MG Tab PO SCH (20:17)
[2021-03-01] MEDS: Montelukast 10 MG Tab PO SCH (20:17)
[2021-03-01] MEDS: Acetaminophen 325 MG Tab PO PRN (20:18)
[2021-03-01] MEDS: Rosuvastatin 20 MG Tab PO SCH (20:30)
[2021-03-02] MEDS: Acetaminophen 325 MG Tab PO SCH ×4 (00:42→20:51)
[2021-03-02] MEDS: Albuterol/Ipratropium 3.0-0.5 MG/3 ML Neb Soln NEB SCH ×4 (00:44→18:51)
[2021-03-02] MEDS: Psyllium Husk Powder Sugar Free 5.85 GM Packet PO SCH (08:30)
[2021-03-02] MEDS: Formoterol/Mometasone 200-5 MCG 8.8 GM Inhaler IH SCH ×2 (08:30→20:55)
[2021-03-02] MEDS: Furosemide 40 MG Tab PO SCH ×2 (08:30→13:29)
[2021-03-02] MEDS: Potassium Chloride 10 MEQ Tab.ER PO SCH (08:30)
[2021-03-02] MEDS: Aspirin 81 MG Tab.EC PO SCH (08:31)
[2021-03-02] MEDS: Magnesium Oxide 400 MG Tab PO SCH (08:31)
[2021-03-02] MEDS: Calcium Carbonate/Vitamin D3 1250 MG-5 MCG Tab PO SCH ×2 (08:31→17:14)
[2021-03-02] MEDS: Cholecalciferol (Vitamin D3) 25 MCG Tab PO SCH (08:31)
[2021-03-02] MEDS: Sertraline 50 MG Tab PO SCH (08:31)
[2021-03-02] MEDS: Docusate Sodium 100 MG Cap PO SCH ×2 (08:32→20:50)
[2021-03-02] MEDS: Lidocaine 4% 1 each Patch TOP SCH (08:45)
[2021-03-02] MEDS: Enoxaparin 40 MG/0.4 ML Syringe SUBCUT SCH (17:14)
[2021-03-02] MEDS: Rosuvastatin 20 MG Tab PO SCH (20:50)
[2021-03-02] MEDS: Montelukast 10 MG Tab PO SCH (20:51)
[2021-03-02] MEDS: Donepezil 5 MG Tab PO SCH (20:51)
[2021-03-03] MEDS: Albuterol/Ipratropium 3.0-0.5 MG/3 ML Neb Soln NEB SCH ×4 (00:51→18:56)
[2021-03-03 07:12] LABS: ANION GAP 11.5 mmol/L (5-15); CHLORIDE,CL 99 mmol/L (98-107); SODIUM,NA 137 mmol/L (136-145)
[2021-03-03] MEDS: Calcium Carbonate/Vitamin D3 1250 MG-5 MCG Tab PO SCH ×2 (10:36→17:54)
[2021-03-03] MEDS: Furosemide 40 MG Tab PO SCH ×2 (10:36→14:37)
[2021-03-03] MEDS: Magnesium Oxide 400 MG Tab PO SCH (10:36)
[2021-03-03] MEDS: Cholecalciferol (Vitamin D3) 25 MCG Tab PO SCH (10:36)
[2021-03-03] MEDS: Docusate Sodium 100 MG Cap PO SCH ×2 (10:37→19:31)
[2021-03-03] MEDS: Potassium Chloride 10 MEQ Tab.ER PO SCH (10:37)
[2021-03-03] MEDS: Aspirin 81 MG Tab.EC PO SCH (10:37)
[2021-03-03] MEDS: Lidocaine 4% 1 each Patch TOP SCH (10:37)
[2021-03-03] MEDS: Formoterol/Mometasone 200-5 MCG 8.8 GM Inhaler IH SCH ×2 (10:38→19:31)
[2021-03-03] MEDS: Acetaminophen 325 MG Tab PO SCH ×3 (10:38→19:29)
[2021-03-03] MEDS: Sertraline 50 MG Tab PO SCH (10:39)
[2021-03-03] MEDS: Psyllium Husk Powder Sugar Free 5.85 GM Packet PO SCH (10:39)
[2021-03-03] MEDS: Enoxaparin 40 MG/0.4 ML Syringe SUBCUT SCH (16:36)
[2021-03-03] MEDS: Donepezil 5 MG Tab PO SCH (19:29)
[2021-03-03] MEDS: Rosuvastatin 20 MG Tab PO SCH (19:29)
[2021-03-03] MEDS: Montelukast 10 MG Tab PO SCH (19:29)
[2021-03-04] MEDS: Albuterol/Ipratropium 3.0-0.5 MG/3 ML Neb Soln NEB SCH ×4 (01:43→18:02)
[2021-03-04] MEDS: Lidocaine 4% 1 each Patch TOP SCH (07:59)
[2021-03-04] MEDS: Acetaminophen 325 MG Tab PO SCH ×3 (08:00→19:20)
[2021-03-04] MEDS: Docusate Sodium 100 MG Cap PO SCH ×2 (08:00→19:37)
[2021-03-04] MEDS: Formoterol/Mometasone 200-5 MCG 8.8 GM Inhaler IH SCH ×2 (08:00→19:23)
[2021-03-04] MEDS: Sertraline 50 MG Tab PO SCH (08:00)
[2021-03-04] MEDS: Furosemide 40 MG Tab PO SCH ×2 (08:00→11:43)
[2021-03-04] MEDS: Magnesium Oxide 400 MG Tab PO SCH (08:00)
[2021-03-04] MEDS: Cholecalciferol (Vitamin D3) 25 MCG Tab PO SCH (08:00)
[2021-03-04] MEDS: Psyllium Husk Powder Sugar Free 5.85 GM Packet PO SCH (08:00)
[2021-03-04] MEDS: Potassium Chloride 10 MEQ Tab.ER PO SCH (08:00)
[2021-03-04] MEDS: Calcium Carbonate/Vitamin D3 1250 MG-5 MCG Tab PO SCH ×2 (08:00→18:02)
[2021-03-04] MEDS: Aspirin 81 MG Tab.EC PO SCH (08:00)
--- NOTE | 2021-03-04 15:02 | PN ---
Progress Note for LARISSA BAKER Date: 03/04/2021 Room #: VM.215 SUBJECTIVE: This is an 80-year-old on swing bed after a right hip fracture. She is recovering well. Her pain is controlled on scheduled Tylenol three times a day. PRN is available. She has not used any narcotics now for over a week. She is on Lovenox for DVT prophylaxis. She has not had any chest pain or shortness of breath. She still continues to have a mild cough and does have underlying asthma. She has been receiving nebulizers. Her Lasix dose has been steadily increased which has improved her hyponatremia and blood pressure and leg swelling. The patient is having bowel movements. She is eating nearly 100% of her meals. She is still having some episodes of incontinence and she attributes that to not being able to get back from the bathroom fast enough. OBJECTIVE: Vital Signs: Her temperature is 98. Her weight is 78.3 kg. Pulse is 94, BP 137/71 respiratory rate 16, and O2 of 93% on room air. General: She is in no acute distress. Heart: Regular rate and rhythm. S1, S2 without murmur. Lungs: Lung sounds are clear to auscultation bilaterally without crackles or wheezes. Abdomen: Positive bowel sounds. Soft, nondistended, nontender. Extremities: Warm and dry. No edema. No calf tenderness. Mental Status: She is alert. She is orientated x3 that she is in the hospital. LABORATORY DATA: Her lab work was last checked yesterday and looked excellent. Hemoglobin was 12.3. Sodium 137, creatinine 0.6. ASSESSMENT: 1. Postoperative from a right hip fracture on 02/07/2021, so nearly four weeks out. 2. Postoperative anemia, resolved. 3. Hyponatremia, resolved. 4. Chronic diastolic heart failure and coronary artery disease, stable. We will continue current diuretics. 5. Essential hypertension, controlled. 6. Dementia, on home medications. 7. Deep venous thrombosis prophylaxis, on Lovenox. Her last dose will be planned for the day she goes home, as she was not able to be started on Lovenox immediately due to her postoperative anemia. This way, it will ensure that she completed four weeks. 8. Obesity. 9. Asthma. Continue home medications. 10.Osteoporosis. 11.Impaired fasting glucose. 12.Hyperlipidemia. 13.Urinary incontinence. PLAN: The patient will continue swing bed cares. DEXA scan after discharge due to medicare. We will continue her working with therapies and the plan would be lab work again on 03/11/2021 and return home with Home Health and family on 03/12/2021. MKA: 03/04/2021 14:23:09 MODL: 03/04/2021 14:54:08 /[id number] JONAS
[2021-03-04] MEDS: Enoxaparin 40 MG/0.4 ML Syringe SUBCUT SCH (16:53)
[2021-03-04] MEDS: Donepezil 5 MG Tab PO SCH (19:19)
[2021-03-04] MEDS: Rosuvastatin 20 MG Tab PO SCH (19:20)
[2021-03-04] MEDS: Montelukast 10 MG Tab PO SCH (19:20)
[2021-03-05] MEDS: Albuterol/Ipratropium 3.0-0.5 MG/3 ML Neb Soln NEB SCH ×4 (01:26→18:08)
[2021-03-05] MEDS: Lidocaine 4% 1 each Patch TOP SCH (08:03)
[2021-03-05] MEDS: Calcium Carbonate/Vitamin D3 1250 MG-5 MCG Tab PO SCH ×2 (08:04→17:58)
[2021-03-05] MEDS: Psyllium Husk Powder Sugar Free 5.85 GM Packet PO SCH (08:04)
[2021-03-05] MEDS: Cholecalciferol (Vitamin D3) 25 MCG Tab PO SCH (08:04)
[2021-03-05] MEDS: Docusate Sodium 100 MG Cap PO SCH ×2 (08:04→20:12)
[2021-03-05] MEDS: Potassium Chloride 10 MEQ Tab.ER PO SCH (08:05)
[2021-03-05] MEDS: Sertraline 50 MG Tab PO SCH (08:05)
[2021-03-05] MEDS: Magnesium Oxide 400 MG Tab PO SCH (08:05)
[2021-03-05] MEDS: Acetaminophen 325 MG Tab PO SCH ×2 (08:05→20:13)
[2021-03-05] MEDS: Aspirin 81 MG Tab.EC PO SCH (08:05)
[2021-03-05] MEDS: Formoterol/Mometasone 200-5 MCG 8.8 GM Inhaler IH SCH ×2 (08:05→20:24)
[2021-03-05] MEDS: Furosemide 40 MG Tab PO SCH ×2 (08:07→12:43)
[2021-03-05] MEDS: Enoxaparin 40 MG/0.4 ML Syringe SUBCUT SCH (15:30)
[2021-03-05] MEDS: Rosuvastatin 20 MG Tab PO SCH (20:12)
[2021-03-05] MEDS: Donepezil 5 MG Tab PO SCH (20:13)
[2021-03-05] MEDS: Montelukast 10 MG Tab PO SCH (20:13)
[2021-03-06] MEDS: Albuterol/Ipratropium 3.0-0.5 MG/3 ML Neb Soln NEB SCH ×4 (00:18→18:04)
[2021-03-06] MEDS: Calcium Carbonate/Vitamin D3 1250 MG-5 MCG Tab PO SCH ×2 (07:54→17:56)
[2021-03-06] MEDS: Furosemide 40 MG Tab PO SCH ×2 (07:54→11:53)
[2021-03-06] MEDS: Aspirin 81 MG Tab.EC PO SCH (07:54)
[2021-03-06] MEDS: Acetaminophen 325 MG Tab PO SCH ×2 (07:54→20:24)
[2021-03-06] MEDS: Potassium Chloride 10 MEQ Tab.ER PO SCH (07:54)
[2021-03-06] MEDS: Cholecalciferol (Vitamin D3) 25 MCG Tab PO SCH (07:54)
[2021-03-06] MEDS: Magnesium Oxide 400 MG Tab PO SCH (07:54)
[2021-03-06] MEDS: Psyllium Husk Powder Sugar Free 5.85 GM Packet PO SCH (07:55)
[2021-03-06] MEDS: Sertraline 50 MG Tab PO SCH (07:55)
[2021-03-06] MEDS: Docusate Sodium 100 MG Cap PO SCH ×2 (07:56→20:24)
[2021-03-06] MEDS: Formoterol/Mometasone 200-5 MCG 8.8 GM Inhaler IH SCH ×2 (07:56→20:26)
[2021-03-06] MEDS: Lidocaine 4% 1 each Patch TOP SCH (07:56)
[2021-03-06] MEDS: Enoxaparin 40 MG/0.4 ML Syringe SUBCUT SCH (16:15)
[2021-03-06] MEDS: Rosuvastatin 20 MG Tab PO SCH (20:24)
[2021-03-06] MEDS: Montelukast 10 MG Tab PO SCH (20:24)
[2021-03-06] MEDS: Donepezil 5 MG Tab PO SCH (20:24)
[2021-03-07] MEDS: Albuterol/Ipratropium 3.0-0.5 MG/3 ML Neb Soln NEB SCH ×2 (01:37→07:10)
[2021-03-07] MEDS: Docusate Sodium 100 MG Cap PO SCH ×2 (08:03→19:40)
[2021-03-07] MEDS: Potassium Chloride 10 MEQ Tab.ER PO SCH (08:03)
[2021-03-07] MEDS: Formoterol/Mometasone 200-5 MCG 8.8 GM Inhaler IH SCH ×2 (08:03→19:43)
[2021-03-07] MEDS: Magnesium Oxide 400 MG Tab PO SCH (08:03)
[2021-03-07] MEDS: Cholecalciferol (Vitamin D3) 25 MCG Tab PO SCH (08:03)
[2021-03-07] MEDS: Aspirin 81 MG Tab.EC PO SCH (08:03)
[2021-03-07] MEDS: Sertraline 50 MG Tab PO SCH (08:04)
[2021-03-07] MEDS: Acetaminophen 325 MG Tab PO SCH ×2 (08:04→19:41)
[2021-03-07] MEDS: Furosemide 40 MG Tab PO SCH ×2 (08:04→11:50)
[2021-03-07] MEDS: Psyllium Husk Powder Sugar Free 5.85 GM Packet PO SCH (08:05)
[2021-03-07] MEDS: Lidocaine 4% 1 each Patch TOP SCH (08:05)
[2021-03-07] MEDS: Calcium Carbonate/Vitamin D3 1250 MG-5 MCG Tab PO SCH ×2 (08:05→17:38)
[2021-03-07] MEDS: Enoxaparin 40 MG/0.4 ML Syringe SUBCUT SCH (16:42)
[2021-03-07] MEDS: Donepezil 5 MG Tab PO SCH (19:40)
[2021-03-07] MEDS: Rosuvastatin 20 MG Tab PO SCH (19:40)
[2021-03-07] MEDS: Montelukast 10 MG Tab PO SCH (19:41)
[2021-03-08] MEDS: Acetaminophen 325 MG Tab PO SCH ×2 (07:47→19:23)
[2021-03-08] MEDS: Lidocaine 4% 1 each Patch TOP SCH (07:48)
[2021-03-08] MEDS: Potassium Chloride 10 MEQ Tab.ER PO SCH (07:49)
[2021-03-08] MEDS: Calcium Carbonate/Vitamin D3 1250 MG-5 MCG Tab PO SCH ×2 (07:49→17:17)
[2021-03-08] MEDS: Aspirin 81 MG Tab.EC PO SCH (07:50)
[2021-03-08] MEDS: Cholecalciferol (Vitamin D3) 25 MCG Tab PO SCH (07:50)
[2021-03-08] MEDS: Magnesium Oxide 400 MG Tab PO SCH (07:50)
[2021-03-08] MEDS: Psyllium Husk Powder Sugar Free 5.85 GM Packet PO SCH (07:50)
[2021-03-08] MEDS: Furosemide 40 MG Tab PO SCH ×2 (07:50→11:39)
[2021-03-08] MEDS: Docusate Sodium 100 MG Cap PO SCH ×2 (07:50→19:23)
[2021-03-08] MEDS: Sertraline 50 MG Tab PO SCH (07:50)
[2021-03-08] MEDS: Formoterol/Mometasone 200-5 MCG 8.8 GM Inhaler IH SCH ×2 (07:52→19:25)
[2021-03-08] MEDS: Enoxaparin 40 MG/0.4 ML Syringe SUBCUT SCH (17:15)
[2021-03-08] MEDS: Rosuvastatin 20 MG Tab PO SCH (19:22)
[2021-03-08] MEDS: Donepezil 5 MG Tab PO SCH (19:22)
[2021-03-08] MEDS: Montelukast 10 MG Tab PO SCH (19:22)
[2021-03-09] MEDS: Lidocaine 4% 1 each Patch TOP SCH (07:33)
[2021-03-09] MEDS: Psyllium Husk Powder Sugar Free 5.85 GM Packet PO SCH (07:33)
[2021-03-09] MEDS: Aspirin 81 MG Tab.EC PO SCH (07:34)
[2021-03-09] MEDS: Calcium Carbonate/Vitamin D3 1250 MG-5 MCG Tab PO SCH ×2 (07:34→18:22)
[2021-03-09] MEDS: Furosemide 40 MG Tab PO SCH ×2 (07:34→11:23)
[2021-03-09] MEDS: Cholecalciferol (Vitamin D3) 25 MCG Tab PO SCH (07:34)
[2021-03-09] MEDS: Docusate Sodium 100 MG Cap PO SCH ×2 (07:34→19:31)
[2021-03-09] MEDS: Acetaminophen 325 MG Tab PO SCH ×2 (07:34→19:31)
[2021-03-09] MEDS: Potassium Chloride 10 MEQ Tab.ER PO SCH (07:34)
[2021-03-09] MEDS: Magnesium Oxide 400 MG Tab PO SCH (07:34)
[2021-03-09] MEDS: Sertraline 50 MG Tab PO SCH (07:34)
[2021-03-09] MEDS: Formoterol/Mometasone 200-5 MCG 8.8 GM Inhaler IH SCH ×2 (07:37→19:31)
[2021-03-09] MEDS: Enoxaparin 40 MG/0.4 ML Syringe SUBCUT SCH (15:57)
[2021-03-09] MEDS: Montelukast 10 MG Tab PO SCH (19:31)
[2021-03-09] MEDS: Donepezil 5 MG Tab PO SCH (19:31)
[2021-03-09] MEDS: Rosuvastatin 20 MG Tab PO SCH (19:31)
[2021-03-10 05:41] VITALS: PULSE 87
[2021-03-10] MEDS: Lidocaine 4% 1 each Patch TOP SCH (08:16)
[2021-03-10] MEDS: Psyllium Husk Powder Sugar Free 5.85 GM Packet PO SCH (08:16)
[2021-03-10] MEDS: Aspirin 81 MG Tab.EC PO SCH (08:17)
[2021-03-10] MEDS: Cholecalciferol (Vitamin D3) 25 MCG Tab PO SCH (08:17)
[2021-03-10] MEDS: Calcium Carbonate/Vitamin D3 1250 MG-5 MCG Tab PO SCH ×2 (08:17→18:24)
[2021-03-10] MEDS: Potassium Chloride 10 MEQ Tab.ER PO SCH (08:18)
[2021-03-10] MEDS: Magnesium Oxide 400 MG Tab PO SCH (08:19)
[2021-03-10] MEDS: Furosemide 40 MG Tab PO SCH ×2 (08:19→12:18)
[2021-03-10] MEDS: Docusate Sodium 100 MG Cap PO SCH ×2 (08:19→19:49)
[2021-03-10] MEDS: Acetaminophen 325 MG Tab PO SCH ×2 (08:19→19:49)
[2021-03-10] MEDS: Sertraline 50 MG Tab PO SCH (08:20)
[2021-03-10] MEDS: Formoterol/Mometasone 200-5 MCG 8.8 GM Inhaler IH SCH ×2 (08:45→19:50)
[2021-03-10] MEDS: Enoxaparin 40 MG/0.4 ML Syringe SUBCUT SCH (18:24)
[2021-03-10] MEDS: Rosuvastatin 20 MG Tab PO SCH (19:48)
[2021-03-10] MEDS: Montelukast 10 MG Tab PO SCH (19:48)
[2021-03-10] MEDS: Donepezil 5 MG Tab PO SCH (19:49)
[2021-03-11 06:21] VITALS: BP 119/62
[2021-03-11 07:13] LABS: CHLORIDE,CL 99 mmol/L (98-107); SODIUM,NA 139 mmol/L (136-145)
[2021-03-11 07:15] LABS: ANION GAP 9.5 mmol/L (5-15)
[2021-03-11] MEDS: Lidocaine 4% 1 each Patch TOP SCH (11:54)
[2021-03-11] MEDS: Sertraline 50 MG Tab PO SCH (11:55)
[2021-03-11] MEDS: Potassium Chloride 10 MEQ Tab.ER PO SCH (11:55)
[2021-03-11] MEDS: Magnesium Oxide 400 MG Tab PO SCH (11:55)
[2021-03-11] MEDS: Furosemide 40 MG Tab PO SCH ×2 (11:55→16:01)
[2021-03-11] MEDS: Aspirin 81 MG Tab.EC PO SCH (11:55)
[2021-03-11] MEDS: Cholecalciferol (Vitamin D3) 25 MCG Tab PO SCH (11:55)
[2021-03-11] MEDS: Docusate Sodium 100 MG Cap PO SCH ×2 (11:56→20:55)
[2021-03-11] MEDS: Acetaminophen 325 MG Tab PO SCH ×2 (11:56→20:55)
[2021-03-11] MEDS: Calcium Carbonate/Vitamin D3 1250 MG-5 MCG Tab PO SCH ×2 (11:56→20:55)
[2021-03-11] MEDS: Psyllium Husk Powder Sugar Free 5.85 GM Packet PO SCH (11:56)
[2021-03-11] MEDS: Formoterol/Mometasone 200-5 MCG 8.8 GM Inhaler IH SCH ×2 (11:57→20:59)
[2021-03-11] MEDS: Enoxaparin 40 MG/0.4 ML Syringe SUBCUT SCH (16:01)
[2021-03-11] MEDS: Rosuvastatin 20 MG Tab PO SCH (20:54)
[2021-03-11] MEDS: Montelukast 10 MG Tab PO SCH (20:54)
[2021-03-11] MEDS: Donepezil 5 MG Tab PO SCH (20:55)
--- NOTE | 2021-03-12 08:28 | PCM.DCSUM1 ---
Discharge Summary - Hospital Course Brief History: Ms. Pena is an 80 yo female who was admitted to swing bed for rehab following a hip fracture. - Discharge Data Discharge Date: 03/12/21 Discharge Disposition: Home, W Home Health Agency 06 Condition: Good - Referral to Home Health Date of Face to Face Encounter: 03/12/21 Reason for Homebound Status: Right hip fracture and surgery - patient is not able to leave the home without assistance of a walker and another individual Primary Care Physician: Liz Godinez DO Skilled Need: PT/OT/nursing - Patient Summary/Data Operative Procedure(s) Performed: none Complications: none Consults: Consultations 02/17/21 15:40 OT Evaluation and Treatment [CONS] Routine PT Evaluation and Treatment [CONS] Routine Labs Pending at D/C: none Recommended Follow-up Testing/Procedures: none Planned Operative Procedure(s) after DC: none Hospital Course: The patient was admitted to swing bed. She participated in therapies with PT and OT. She progressed well and is deemed stable for d/c with home health to continue therapies. She did have a cough during her swing bed stay, which is chronic for her. This responded well to nebs and then inhalers. She was switched from nebs to inhalers last week without incident. She had labs done yesterday that are reviewed and without concerns. Her swing bed stay was otherwise uncomplicated. [id number] completed today for home health. - Patient Instructions Diet: Usual Diet as Tolerated Activity: As Tolerated Driving: Do Not Drive Showering/Bathing: May Shower Notify Provider of: Fever, Increased Pain, Swelling and Redness, Nausea and/or Vomiting - Discharge Plan *PRESCRIPTION DRUG MONITORING PROGRAM REVIEWED*: Not Applicable *COPY OF PRESCRIPTION DRUG MONITORING REPORT IN PATIENT LASHAE: Not Applicable Prescriptions/Med Rec: Furosemide [Lasix] 40 mg PO BID@0800,1200 #120 tablet Home Medications: Home Meds Montelukast [Singulair] 10 mg PO BEDTIME 02/09/15 [History] Multivitamin [Multi-Vitamin Daily] 1 tab PO DAILY 02/09/15 [History] Cholecalciferol (Vitamin D3) [Vitamin D3] 1,000 unit PO DAILY 02/07/21 [History] Clopidogrel Bisulfate [Plavix] 75 mg PO DAILY 02/07/21 [History] Donepezil [Aricept] 5 mg PO BEDTIME 02/07/21 [History] Psyllium Husk (With Sugar) [Metamucil Powder] 1 tsp PO DAILY 02/07/21 [History] Rosuvastatin [Crestor] 20 mg PO BEDTIME 02/07/21 [History] Sertraline [Zoloft] 50 mg PO DAILY 02/07/21 [History] Acetaminophen [Tylenol] 650 mg PO Q6H PRN 02/11/21 [History] Albuterol Sulfate [Proventil Hfa] 2 inh PO Q4H PRN 02/11/21 [History] Aspirin [Aspirin EC] 81 mg PO DAILY 02/11/21 [History] Ca/D3/Mag Ox/Zinc/Line Clearance Foreman/Olman/Bor [Calcium [id number] Chw Tb] 1 tab PO BID 02/11/21 [History] Docusate Sodium [Colace] 100 mg PO BID 02/11/21 [History] Fluticasone Propion/Salmeterol [Advair Hfa 230-21 Mcg Inhaler] 2 inh PO BID 02/11/21 [History] Magnesium Oxide [Magnesium] 400 mg PO DAILY 02/17/21 [History] Potassium Chloride [K-Tab ER] 20 meq PO DAILY 02/17/21 [History] Acetaminophen [Tylenol] 650 mg PO BID tablet 03/07/21 [Rx] Furosemide [Lasix] 40 mg PO BID@0800,1200 #120 tablet 03/07/21 [Rx] Oxygen Therapy Mode: Room Air - Discharge Summary/Plan Comment DC Time >30 min.: No Total # of Minutes for Discharge Time: 15 - General Info Date of Service: 03/12/21 Subjective Update: The patient states she is feeling well this morning and is looking forward to going home. She denies any hip pain. No cough or shortness of breath. She is excited she will be home before Yue. - Review of Systems General: Reports: No Symptoms HEENT: Reports: No Symptoms Pulmonary: Reports: No Symptoms Cardiovascular: Reports: No Symptoms Gastrointestinal: Reports: No Symptoms Genitourinary: Reports: No Symptoms Musculoskeletal: Reports: No Symptoms Skin: Reports: No Symptoms Neurological: Reports: No Symptoms - Patient Data Vitals - Most Recent: Last Vital Signs Temp 35.8 C L 03/11/21 06:00 Pulse 87 03/11/21 06:00 Resp 18 03/11/21 06:00 BP 119/62 03/11/21 06:00 Pulse Ox 94 L 03/11/21 06:00 Weight - Most Recent: 77.6 kg I&O - Last 24 hours: Intake & Output 03/11/21 03/12/21 03/12/21 22:59 06:59 14:59 Intake Total 120 Balance 120 Med Orders - Current: Current Medications Acetaminophen (Acetaminophen 325 Mg Tab) 650 mg PO Q6H PRN PRN Reason: Pain (mild 1-3) Last Admin: 03/01/21 20:18 Dose: 650 mg Documented by: Acetaminophen (Acetaminophen 325 Mg Tab) 650 mg PO BID [facility] Last Admin: 03/11/21 20:55 Dose: 650 mg Documented by: Albuterol (Albuterol Hfa 18 Gm Inhaler) 0 gm INH Q4H PRN PRN Reason: Shortness of Breath Aspirin (Aspirin 81 Mg Tab.Ec) 81 mg PO DAILY [facility] Last Admin: 03/11/21 11:55 Dose: 81 mg Documented by: Calcium Carbonate (Calcium Carbonate/Vitamin D3 1250 Mg-5 Mcg Tab) 1 tab PO BIDMEALS [facility] Last Admin: 03/11/21 20:55 Dose: 1 tab Documented by: Cholecalciferol (Cholecalciferol (Vitamin D3) 25 Mcg Tab) 25 mcg PO DAILY [facility] Last Admin: 03/11/21 11:55 Dose: 25 mcg Documented by: Docusate Sodium (Docusate Sodium 100 Mg Cap) 100 mg PO BID [facility] Last Admin: 03/11/21 20:55 Dose: 100 mg Documented by: Donepezil HCl (Donepezil 5 Mg Tab) 5 mg PO BEDTIME [facility] Last Admin: 03/11/21 20:55 Dose: 5 mg Documented by: Enoxaparin Sodium (Enoxaparin 40 Mg/0.4 Ml Syringe) 40 mg SUBCUT Q24H [facility] Stop: 03/12/21 23:00 Last Admin: 03/11/21 16:01 Dose: 40 mg Documented by: Furosemide (Furosemide 40 Mg Tab) 40 mg PO BID@0800,1200 [facility] Last Admin: 03/11/21 16:01 Dose: 40 mg Documented by: Lidocaine (Lidocaine 4% 1 Each Patch) 1 each TOP DAILY [facility] Last Admin: 03/11/21 11:54 Dose: Not Given Documented by: Magnesium Oxide (Magnesium Oxide 400 Mg Tab) 400 mg PO DAILY [facility] Last Admin: 03/11/21 11:55 Dose: 400 mg Documented by: Miscellaneous Information (Remove Patch) 1 ea TRDERM BEDTIME [facility] Last Admin: 03/11/21 21:02 Dose: 1 ea Documented by: Mometasone Furoate/Formoterol Fumar (Formoterol/Mometasone 200-5 Mcg 8.8 Gm Inhaler) 2 puff IH BID [facility] Last Admin: 03/11/21 20:59 Dose: 2 puff Documented by: Montelukast Sodium (Montelukast 10 Mg Tab) 10 mg PO BEDTIME [facility] Last Admin: 03/11/21 20:54 Dose: 10 mg Documented by: Ondansetron HCl (Ondansetron 4 Mg Tab.Dis) 4 mg PO Q4H PRN PRN Reason: Nausea Last Admin: 02/19/21 19:48 Dose: 4 mg Documented by: Oxycodone/Acetaminophen (Acetaminophen/Oxycodone 325-5 Mg Tab) 1 tab PO Q6H PRN PRN Reason: Pain (severe 7-10) Last Admin: 03/01/21 16:16 Dose: 1 tab Documented by: Potassium Chloride (Potassium Chloride 10 Meq Tab.Er) 20 meq PO DAILY [facility] Last Admin: 03/11/21 11:55 Dose: 20 meq Documented by: Psyllium Husk (Psyllium Husk Powder Sugar Free 5.85 Gm Packet) 1 pkt PO DAILY [facility] Last Admin: 03/11/21 11:56 Dose: 1 pkt Documented by: Rosuvastatin Calcium (Rosuvastatin 20 Mg Tab) 20 mg PO BEDTIME [facility] Last Admin: 03/11/21 20:54 Dose: 20 mg Documented by: Sertraline HCl (Sertraline 50 Mg Tab) 50 mg PO DAILY [facility] Last Admin: 03/11/21 11:55 Dose: 50 mg Documented by: Discontinued Medications Acetaminophen (Acetaminophen 325 Mg Tab) 650 mg PO TID [facility] Last Admin: 03/04/21 11:43 Dose: 650 mg Documented by: Albuterol/Ipratropium (Albuterol/Ipratropium 3.0-0.5 Mg/3 Ml Neb Soln) 3 ml NEB Q6HRRT [facility] Last Admin: 03/07/21 07:10 Dose: 3 ml Documented by: Ferrous Sulfate (Ferrous Sulfate 325 Mg Tab) 325 mg PO DAILY [facility] Last Admin: 02/28/21 08:12 Dose: 325 mg Documented by: Furosemide (Furosemide 20 Mg Tab) 10 mg PO DAILY [facility] Last Admin: 02/20/21 08:45 Dose: 10 mg Documented by: Furosemide (Furosemide 20 Mg Tab) 20 mg PO DAILY [facility] Last Admin: 02/23/21 09:06 Dose: 20 mg Documented by: Furosemide (Furosemide 20 Mg Tab) 10 mg PO ONETIME ONE Stop: 02/20/21 09:01 Last Admin: 02/20/21 09:04 Dose: 10 mg Documented by: Furosemide (Furosemide 20 Mg Tab) 40 mg PO DAILY [facility] Last Admin: 02/27/21 09:05 Dose: Not Given Documented by: Multivitamins/Minerals (Multivitamins With Iron/Calcium/Folic Acid/Minerals Tab) 1 tab PO DAILY [facility] Last Admin: 02/28/21 08:12 Dose: 1 tab Documented by: - Exam General: Reports: Alert, Oriented, Cooperative, No Acute Distress HEENT: Reports: Mucous Membr. Moist/Bibo Neck: Reports: Supple, Trachea Midline, No Thyromegaly, Lymphadenopathy Lungs: Reports: Clear to Auscultation, Normal Respiratory Effort Cardiovascular: Reports: Regular Rate, Regular Rhythm, No Murmurs GI/Abdominal Exam: Normal Bowel Sounds, Soft, Non-Tender, No Organomegaly, No Distention, No Mass Extremities: Normal Inspection, Non-Tender, No Pedal Edema, Normal Capillary Refill Skin: Reports: Warm, Dry, Intact Neurological: Reports: No New Focal Deficit
[2021-03-12] MEDS: Cholecalciferol (Vitamin D3) 25 MCG Tab PO SCH (08:32)
[2021-03-12] MEDS: Magnesium Oxide 400 MG Tab PO SCH (08:32)
[2021-03-12] MEDS: Furosemide 40 MG Tab PO SCH (08:32)
[2021-03-12] MEDS: Docusate Sodium 100 MG Cap PO SCH (08:32)
[2021-03-12] MEDS: Acetaminophen 325 MG Tab PO SCH (08:32)
[2021-03-12] MEDS: Calcium Carbonate/Vitamin D3 1250 MG-5 MCG Tab PO SCH (08:32)
[2021-03-12] MEDS: Sertraline 50 MG Tab PO SCH (08:32)
[2021-03-12] MEDS: Potassium Chloride 10 MEQ Tab.ER PO SCH (08:32)
[2021-03-12] MEDS: Aspirin 81 MG Tab.EC PO SCH (08:32)
[2021-03-12] MEDS: Psyllium Husk Powder Sugar Free 5.85 GM Packet PO SCH (08:33)
[2021-03-12] MEDS: Lidocaine 4% 1 each Patch TOP SCH (08:38)
== END 2021-03-12 10:25 | disposition home health service (06) | DRG 560 ==
LOC: VM.MS 13:51
PROVIDERS: ADMIT Internal Medicine; ATTEND Internal Medicine
DX: S72.141D Displaced intertrochanteric fracture of right femur, subsequent encounter for closed fracture with routine healing (principal); E87.1 Hypo-osmolality and hyponatremia; I50.32 Chronic diastolic (congestive) heart failure; D64.89 Other specified anemias; I25.10 Atherosclerotic heart disease of native coronary artery without angina pectoris; F03.90 Unspecified dementia, unspecified severity, without behavioral disturbance, psychotic disturbance, mood disturbance, and anxiety; J45.909 Unspecified asthma, uncomplicated; M81.0 Age-related osteoporosis without current pathological fracture; R73.01 Impaired fasting glucose; E78.5 Hyperlipidemia, unspecified; I11.0 Hypertensive heart disease with heart failure; R32 Unspecified urinary incontinence; Z79.899 Other long term (current) drug therapy
CPT/HCPCS: 36415; 71045; 80048; 81001; 83735; 83880; 85025; 94640; 97110-GP; 97116-GP; 97162-GP; 97165-GO; 97530-GP; A9270-GY; J1650; J7620-GY

== ENCOUNTER 2021-05-31 17:44 | Inpatient (IN) | payer MEDICARE, OTHER ==
[2021-05-31] MEDS ORDERED: fentaNYL 100 MCG/2 ML SDV IVPUSH ONE (18:11)
[2021-05-31] MEDS ORDERED: Docusate Sodium 100 MG Cap PO PRN (21:18)
[2021-05-31] MEDS: oxyCODONE 5 MG Tab PO PRN (21:40)
[2021-05-31] MEDS ORDERED: Albuterol HFA 18 Gm Inhaler INH PRN (21:49)
[2021-05-31] MEDS ORDERED: Acetaminophen 325 MG Tab PO PRN (21:49)
[2021-05-31] MEDS ORDERED: Sodium Chloride 0.9% 10 ML Syringe FLUSH PRN (22:00)
[2021-05-31] MEDS: Albuterol/Ipratropium 3.0-0.5 MG/3 ML Neb Soln INH SCH (23:41)
[2021-06-01] MEDS: oxyCODONE 5 MG Tab PO PRN ×4 (03:10→20:10)
[2021-06-01] MEDS: Ondansetron 4 MG/2 ML SDV IV PRN ×2 (03:21→21:31)
[2021-06-01] MEDS: Ketorolac 15 MG/ML SDV IVPUSH PRN ×2 (03:21→11:34)
[2021-06-01] MEDS: Albuterol/Ipratropium 3.0-0.5 MG/3 ML Neb Soln INH SCH ×4 (03:23→22:00)
[2021-06-01] MEDS: Ipratropium 0.02% 0.5 MG/2.5 ML Neb Soln NEB SCH ×3 (07:41→20:12)
[2021-06-01] MEDS: Potassium Chloride 10 MEQ Tab.ER PO SCH (09:17)
[2021-06-01] MEDS: Furosemide 40 MG Tab PO SCH ×2 (09:17→11:33)
[2021-06-01] MEDS: Sertraline 50 MG Tab PO SCH (09:17)
[2021-06-01] MEDS: Aspirin 81 MG Tab.EC PO SCH (09:17)
[2021-06-01] MEDS: Docusate Sodium 100 MG Cap PO SCH ×2 (09:18→20:10)
[2021-06-01] MEDS: Formoterol/Mometasone 200-5 MCG 13 GM Inhaler INH SCH ×2 (09:19→20:13)
[2021-06-01] MEDS: Ondansetron 4 MG Tab.DIS PO PRN (11:33)
[2021-06-01] MEDS: fentaNYL 50 MCG/ML SDV IVPUSH PRN (16:46)
[2021-06-01] MEDS: Donepezil 5 MG Tab PO SCH (20:10)
[2021-06-01] MEDS: Rosuvastatin 20 MG Tab PO SCH (20:10)
[2021-06-02] MEDS: Ketorolac 15 MG/ML SDV IVPUSH PRN ×3 (01:27→17:53)
[2021-06-02] MEDS: Ipratropium 0.02% 0.5 MG/2.5 ML Neb Soln NEB SCH ×4 (01:27→19:18)
[2021-06-02] MEDS: Ondansetron 4 MG Tab.DIS PO PRN ×2 (01:28→16:01)
[2021-06-02] MEDS: fentaNYL 50 MCG/ML SDV IVPUSH PRN ×2 (06:20→22:55)
[2021-06-02] MEDS: Ondansetron 4 MG/2 ML SDV IV PRN ×3 (06:20→22:55)
[2021-06-02] MEDS: oxyCODONE 5 MG Tab PO PRN ×3 (06:20→19:19)
[2021-06-02] MEDS: Albuterol/Ipratropium 3.0-0.5 MG/3 ML Neb Soln INH SCH ×4 (06:25→22:50)
[2021-06-02] MEDS: Sodium Chloride 0.9% 1,000 ML IV SCH ×2 (08:27→22:51)
[2021-06-02] MEDS: Aspirin 81 MG Tab.EC PO SCH (08:31)
[2021-06-02] MEDS: Docusate Sodium 100 MG Cap PO SCH ×2 (08:31→19:19)
[2021-06-02] MEDS: Sertraline 50 MG Tab PO SCH (08:31)
[2021-06-02] MEDS: Potassium Chloride 10 MEQ Tab.ER PO SCH (08:31)
[2021-06-02] MEDS: Furosemide 40 MG Tab PO SCH ×2 (08:31→13:12)
[2021-06-02] MEDS: Formoterol/Mometasone 200-5 MCG 13 GM Inhaler INH SCH ×2 (08:33→19:41)
[2021-06-02] MEDS: Melatonin 3 MG Tab PO PRN (19:19)
[2021-06-02] MEDS: Rosuvastatin 20 MG Tab PO SCH (19:19)
[2021-06-02] MEDS: Donepezil 5 MG Tab PO SCH (19:19)
[2021-06-03] MEDS: Ipratropium 0.02% 0.5 MG/2.5 ML Neb Soln NEB SCH ×2 (02:34→07:43)
[2021-06-03] MEDS: Albuterol/Ipratropium 3.0-0.5 MG/3 ML Neb Soln INH SCH ×4 (05:22→21:15)
[2021-06-03] MEDS: oxyCODONE 5 MG Tab PO PRN ×3 (05:23→21:23)
[2021-06-03] MEDS: Sertraline 50 MG Tab PO SCH (08:38)
[2021-06-03] MEDS: Formoterol/Mometasone 200-5 MCG 13 GM Inhaler INH SCH ×2 (08:38→21:16)
[2021-06-03] MEDS: Docusate Sodium 100 MG Cap PO SCH ×2 (08:38→21:15)
[2021-06-03] MEDS: Furosemide 40 MG Tab PO SCH ×2 (08:38→11:49)
[2021-06-03] MEDS: Aspirin 81 MG Tab.EC PO SCH (08:38)
[2021-06-03] MEDS: Potassium Chloride 10 MEQ Tab.ER PO SCH (08:39)
[2021-06-03] MEDS: Ondansetron 4 MG/2 ML SDV IV PRN (11:49)
[2021-06-03] MEDS: Ketorolac 15 MG/ML SDV IVPUSH PRN ×2 (11:49→21:27)
[2021-06-03] MEDS: IPRATROPIUM 0.06% NAS SCH ×2 (11:50→21:18)
[2021-06-03] MEDS: Rosuvastatin 20 MG Tab PO SCH (21:15)
[2021-06-03] MEDS: Donepezil 5 MG Tab PO SCH (21:15)
[2021-06-03] MEDS: Melatonin 3 MG Tab PO PRN (21:23)
[2021-06-04 06:54] VITALS: BP 118/52; PULSE 92
[2021-06-04] MEDS: Albuterol/Ipratropium 3.0-0.5 MG/3 ML Neb Soln INH SCH ×2 (10:07→10:50)
[2021-06-04] MEDS: Docusate Sodium 100 MG Cap PO SCH (10:14)
[2021-06-04] MEDS: Sertraline 50 MG Tab PO SCH (10:14)
[2021-06-04] MEDS: Potassium Chloride 10 MEQ Tab.ER PO SCH (10:14)
[2021-06-04] MEDS: Aspirin 81 MG Tab.EC PO SCH (10:14)
[2021-06-04] MEDS: Furosemide 40 MG Tab PO SCH ×2 (10:14→13:42)
[2021-06-04] MEDS: IPRATROPIUM 0.06% NAS SCH ×2 (10:15→13:43)
[2021-06-04] MEDS: Formoterol/Mometasone 200-5 MCG 13 GM Inhaler INH SCH (10:16)
[2021-06-04 13:32] LABS: CHLORIDE,CL 98 mmol/L (98-107); SODIUM,NA 136 mmol/L (136-145)
[2021-06-04 13:37] LABS: ANION GAP 9.1 mmol/L (5-15)
[2021-06-04] MEDS: Ketorolac 15 MG/ML SDV IVPUSH PRN (13:48)
[2021-06-04] MEDS ORDERED: Albuterol/Ipratropium 3.0-0.5 MG/3 ML Neb Soln INH SCH (15:00)
[2021-06-04] MEDS ORDERED: Potassium Chloride 20 MEQ Tab.ER PO SCH (20:00)
== END 2021-06-04 15:25 | disposition swing bed (61) | DRG 536 ==
LOC: VM.ED 17:44 → VM.MS 20:13
PROVIDERS: ADMIT Nurse Practitioner Family; ATTEND Internal Medicine
DX: S32.512A Fracture of superior rim of left pubis, initial encounter for closed fracture (principal); S32.599A Other specified fracture of unspecified pubis, initial encounter for closed fracture; W19.XXXA Unspecified fall, initial encounter; J45.909 Unspecified asthma, uncomplicated; N32.81 Overactive bladder; M16.0 Bilateral primary osteoarthritis of hip; Z88.5 Allergy status to narcotic agent; Z88.8 Allergy status to other drugs, medicaments and biological substances; Z79.02 Long term (current) use of antithrombotics/antiplatelets; S32.592A Other specified fracture of left pubis, initial encounter for closed fracture; I25.10 Atherosclerotic heart disease of native coronary artery without angina pectoris; I11.0 Hypertensive heart disease with heart failure; I50.9 Heart failure, unspecified; F32.A Depression, unspecified; F41.9 Anxiety disorder, unspecified; Z66 Do not resuscitate; E78.5 Hyperlipidemia, unspecified; D64.9 Anemia, unspecified; Z20.822 Contact with and (suspected) exposure to COVID-19; F03.90 Unspecified dementia, unspecified severity, without behavioral disturbance, psychotic disturbance, mood disturbance, and anxiety; Z96.643 Presence of artificial hip joint, bilateral; W07.XXXA Fall from chair, initial encounter; M81.0 Age-related osteoporosis without current pathological fracture; Z79.01 Long term (current) use of anticoagulants; Z79.82 Long term (current) use of aspirin; Z95.5 Presence of coronary angioplasty implant and graft; Y92.009 Unspecified place in unspecified non-institutional (private) residence as the place of occurrence of the external cause; Z79.1 Long term (current) use of non-steroidal anti-inflammatories (NSAID); Z79.899 Other long term (current) drug therapy; Z79.52 Long term (current) use of systemic steroids
CPT/HCPCS: 36415; 80048; 81001; 94640; 94760; 96374; 97110-GO; 97163-GP; 97165-GO; 97530-GP; 99284; 99285-25; A9270-GY; J1885; J2405; J3010; J7030; J7620-GY; U0002

== ENCOUNTER 2021-06-04 14:48 | Inpatient (IN) | payer MEDICARE, OTHER ==
[2021-06-04] MEDS ORDERED: Albuterol/Ipratropium 3.0-0.5 MG/3 ML Neb Soln INH PRN (15:56)
[2021-06-04] MEDS ORDERED: Albuterol HFA 18 Gm Inhaler INH PRN (15:56)
[2021-06-04] MEDS ORDERED: Bisacodyl 5 MG Tab PO PRN (16:02)
[2021-06-04] MEDS ORDERED: Bisacodyl 10 MG Supp RECTAL PRN (16:02)
[2021-06-04] MEDS ORDERED: Polyethylene Glycol 3350 Powder 17 GM Packet PO PRN (16:02)
[2021-06-04] MEDS ORDERED: Ibuprofen 200 MG Tab PO PRN (16:08)
[2021-06-04] MEDS: oxyCODONE 5 MG Tab PO PRN (21:00)
[2021-06-04] MEDS: Melatonin 3 MG Tab PO PRN (21:00)
[2021-06-04] MEDS: Formoterol/Mometasone 200-5 MCG 13 GM Inhaler INH SCH (21:01)
[2021-06-04] MEDS: Potassium Chloride 20 MEQ Tab.ER PO SCH (21:01)
[2021-06-04] MEDS: Donepezil 5 MG Tab PO SCH (21:01)
[2021-06-04] MEDS: Rosuvastatin 20 MG Tab PO SCH (21:01)
[2021-06-04] MEDS: IPRATROPIUM BROMIDE NASBOTH SCH (21:02)
[2021-06-04] MEDS: Docusate Sodium 100 MG Cap PO SCH (21:06)
[2021-06-05] MEDS: Acetaminophen 325 MG Tab PO PRN ×2 (05:26→18:39)
[2021-06-05] MEDS: IPRATROPIUM BROMIDE NASBOTH SCH ×3 (08:56→19:39)
[2021-06-05] MEDS: Potassium Chloride 20 MEQ Tab.ER PO SCH ×2 (08:57→19:37)
[2021-06-05] MEDS: Cholecalciferol (Vitamin D3) 25 MCG Tab PO SCH (08:57)
[2021-06-05] MEDS: Furosemide 40 MG Tab PO SCH ×2 (08:57→11:44)
[2021-06-05] MEDS: Sertraline 50 MG Tab PO SCH (08:57)
[2021-06-05] MEDS: Aspirin 81 MG Tab.EC PO SCH (08:57)
[2021-06-05] MEDS: Docusate Sodium 100 MG Cap PO SCH ×2 (08:57→19:38)
[2021-06-05] MEDS: Formoterol/Mometasone 200-5 MCG 13 GM Inhaler INH SCH ×2 (08:58→19:38)
[2021-06-05] MEDS: Ondansetron 4 MG Tab.DIS PO PRN ×2 (11:44→18:39)
[2021-06-05] MEDS: oxyCODONE 5 MG Tab PO PRN (11:44)
[2021-06-05] MEDS: Psyllium Husk Powder Sugar Free 5.85 GM Packet PO SCH (11:44)
[2021-06-05] MEDS: Rosuvastatin 20 MG Tab PO SCH (19:37)
[2021-06-05] MEDS: Donepezil 5 MG Tab PO SCH (19:37)
[2021-06-05] MEDS: Melatonin 3 MG Tab PO PRN (19:37)
[2021-06-06] MEDS: Ondansetron 4 MG Tab.DIS PO PRN (08:54)
[2021-06-06] MEDS: Sertraline 50 MG Tab PO SCH (08:54)
[2021-06-06] MEDS: Psyllium Husk Powder Sugar Free 5.85 GM Packet PO SCH (08:54)
[2021-06-06] MEDS: Furosemide 40 MG Tab PO SCH ×2 (08:55→12:04)
[2021-06-06] MEDS: Acetaminophen 325 MG Tab PO PRN ×2 (08:55→12:08)
[2021-06-06] MEDS: Docusate Sodium 100 MG Cap PO SCH ×2 (08:55→19:40)
[2021-06-06] MEDS: Potassium Chloride 20 MEQ Tab.ER PO SCH ×2 (08:55→19:40)
[2021-06-06] MEDS: Cholecalciferol (Vitamin D3) 25 MCG Tab PO SCH (08:55)
[2021-06-06] MEDS: Formoterol/Mometasone 200-5 MCG 13 GM Inhaler INH SCH ×2 (08:56→19:40)
[2021-06-06] MEDS: Aspirin 81 MG Tab.EC PO SCH (08:56)
[2021-06-06] MEDS: IPRATROPIUM BROMIDE NASBOTH SCH ×3 (08:56→19:41)
[2021-06-06] MEDS: Rosuvastatin 20 MG Tab PO SCH (19:40)
[2021-06-06] MEDS: Donepezil 5 MG Tab PO SCH (19:40)
[2021-06-07] MEDS: Acetaminophen 325 MG Tab PO PRN ×3 (07:50→20:24)
[2021-06-07] MEDS: Docusate Sodium 100 MG Cap PO SCH ×2 (07:50→20:25)
[2021-06-07] MEDS: Psyllium Husk Powder Sugar Free 5.85 GM Packet PO SCH (07:50)
[2021-06-07] MEDS: Sertraline 50 MG Tab PO SCH (07:51)
[2021-06-07] MEDS: Potassium Chloride 20 MEQ Tab.ER PO SCH ×2 (07:51→20:25)
[2021-06-07] MEDS: Aspirin 81 MG Tab.EC PO SCH (07:51)
[2021-06-07] MEDS: Furosemide 40 MG Tab PO SCH ×2 (07:51→12:00)
[2021-06-07] MEDS: IPRATROPIUM BROMIDE NASBOTH SCH ×3 (07:51→20:27)
[2021-06-07] MEDS: Cholecalciferol (Vitamin D3) 25 MCG Tab PO SCH (07:51)
[2021-06-07] MEDS: Formoterol/Mometasone 200-5 MCG 13 GM Inhaler INH SCH ×2 (07:52→20:28)
[2021-06-07] MEDS: Rosuvastatin 20 MG Tab PO SCH (20:24)
[2021-06-07] MEDS: Donepezil 5 MG Tab PO SCH (20:25)
[2021-06-08] MEDS: IPRATROPIUM BROMIDE NASBOTH SCH ×3 (08:01→19:37)
[2021-06-08] MEDS: Formoterol/Mometasone 200-5 MCG 13 GM Inhaler INH SCH ×2 (08:01→19:37)
[2021-06-08] MEDS: Acetaminophen 325 MG Tab PO PRN ×3 (08:02→19:35)
[2021-06-08] MEDS: Potassium Chloride 20 MEQ Tab.ER PO SCH ×2 (08:02→19:36)
[2021-06-08] MEDS: Aspirin 81 MG Tab.EC PO SCH (08:02)
[2021-06-08] MEDS: Cholecalciferol (Vitamin D3) 25 MCG Tab PO SCH (08:02)
[2021-06-08] MEDS: Docusate Sodium 100 MG Cap PO SCH ×2 (08:02→19:36)
[2021-06-08] MEDS: Psyllium Husk Powder Sugar Free 5.85 GM Packet PO SCH (08:02)
[2021-06-08] MEDS: Sertraline 50 MG Tab PO SCH (08:02)
[2021-06-08] MEDS: Furosemide 40 MG Tab PO SCH ×2 (08:03→11:51)
[2021-06-08] MEDS: Melatonin 3 MG Tab PO PRN (19:35)
[2021-06-08] MEDS: Donepezil 5 MG Tab PO SCH (19:36)
[2021-06-08] MEDS: Rosuvastatin 20 MG Tab PO SCH (19:36)
[2021-06-09] MEDS: Potassium Chloride 20 MEQ Tab.ER PO SCH ×2 (08:08→19:39)
[2021-06-09] MEDS: Aspirin 81 MG Tab.EC PO SCH (08:09)
[2021-06-09] MEDS: Sertraline 50 MG Tab PO SCH (08:09)
[2021-06-09] MEDS: Cholecalciferol (Vitamin D3) 25 MCG Tab PO SCH (08:09)
[2021-06-09] MEDS: Furosemide 40 MG Tab PO SCH ×2 (08:09→12:48)
[2021-06-09] MEDS: Psyllium Husk Powder Sugar Free 5.85 GM Packet PO SCH (08:09)
[2021-06-09] MEDS: Formoterol/Mometasone 200-5 MCG 13 GM Inhaler INH SCH ×2 (08:09→19:40)
[2021-06-09] MEDS: IPRATROPIUM BROMIDE NASBOTH SCH ×3 (08:10→19:41)
[2021-06-09] MEDS: Docusate Sodium 100 MG Cap PO SCH ×2 (08:14→19:38)
[2021-06-09] MEDS: Acetaminophen 325 MG Tab PO PRN (08:30)
[2021-06-09] MEDS: oxyCODONE 5 MG Tab PO PRN ×2 (16:49→22:00)
[2021-06-09] MEDS: Rosuvastatin 20 MG Tab PO SCH (19:39)
[2021-06-09] MEDS: Donepezil 5 MG Tab PO SCH (19:39)
[2021-06-10 06:49] LABS: ANION GAP 7.7 mmol/L (5-15); CHLORIDE,CL 98 mmol/L (98-107); SODIUM,NA 135 mmol/L (136-145)
[2021-06-10] MEDS: Psyllium Husk Powder Sugar Free 5.85 GM Packet PO SCH (08:56)
[2021-06-10] MEDS: Acetaminophen 325 MG Tab PO PRN ×2 (08:56→20:26)
[2021-06-10] MEDS: Furosemide 40 MG Tab PO SCH ×2 (08:57→11:34)
[2021-06-10] MEDS: Formoterol/Mometasone 200-5 MCG 13 GM Inhaler INH SCH ×2 (08:57→20:28)
[2021-06-10] MEDS: Docusate Sodium 100 MG Cap PO SCH ×2 (08:57→20:26)
[2021-06-10] MEDS: Sertraline 50 MG Tab PO SCH (08:57)
[2021-06-10] MEDS: Potassium Chloride 20 MEQ Tab.ER PO SCH ×2 (08:57→20:25)
[2021-06-10] MEDS: Cholecalciferol (Vitamin D3) 25 MCG Tab PO SCH (08:57)
[2021-06-10] MEDS: Aspirin 81 MG Tab.EC PO SCH (08:57)
[2021-06-10] MEDS: IPRATROPIUM BROMIDE NASBOTH SCH ×3 (08:58→20:28)
[2021-06-10] MEDS: Melatonin 3 MG Tab PO PRN (20:25)
[2021-06-10] MEDS: Donepezil 5 MG Tab PO SCH (20:26)
[2021-06-10] MEDS: Rosuvastatin 20 MG Tab PO SCH (20:26)
[2021-06-11] MEDS: Enoxaparin 40 MG/0.4 ML Syringe SUBCUT SCH (08:03)
[2021-06-11] MEDS: Psyllium Husk Powder Sugar Free 5.85 GM Packet PO SCH (08:06)
[2021-06-11] MEDS: Acetaminophen 325 MG Tab PO PRN ×2 (08:07→16:44)
[2021-06-11] MEDS: Aspirin 81 MG Tab.EC PO SCH (08:07)
[2021-06-11] MEDS: Cholecalciferol (Vitamin D3) 25 MCG Tab PO SCH (08:07)
[2021-06-11] MEDS: Sertraline 50 MG Tab PO SCH (08:08)
[2021-06-11] MEDS: Potassium Chloride 20 MEQ Tab.ER PO SCH ×2 (08:08→20:02)
[2021-06-11] MEDS: Furosemide 40 MG Tab PO SCH ×2 (08:08→11:29)
[2021-06-11] MEDS: Docusate Sodium 100 MG Cap PO SCH ×2 (08:08→20:03)
[2021-06-11] MEDS: Formoterol/Mometasone 200-5 MCG 13 GM Inhaler INH SCH ×2 (08:09→20:03)
[2021-06-11] MEDS: IPRATROPIUM BROMIDE NASBOTH SCH ×3 (08:09→20:03)
[2021-06-11] MEDS ORDERED: traMADol 50 MG Tab PO PRN (08:40)
[2021-06-11] MEDS: DULoxetine 30 MG Cap PO SCH (09:42)
[2021-06-11] MEDS: Ibuprofen 200 MG Tab PO PRN (11:29)
[2021-06-11] MEDS: Donepezil 5 MG Tab PO SCH (20:02)
[2021-06-11] MEDS: Melatonin 3 MG Tab PO PRN (20:02)
[2021-06-11] MEDS: Rosuvastatin 20 MG Tab PO SCH (20:03)
[2021-06-12] MEDS: IPRATROPIUM BROMIDE NASBOTH SCH ×3 (08:43→19:54)
[2021-06-12] MEDS: Formoterol/Mometasone 200-5 MCG 13 GM Inhaler INH SCH ×2 (08:43→19:55)
[2021-06-12] MEDS: Enoxaparin 40 MG/0.4 ML Syringe SUBCUT SCH (08:43)
[2021-06-12] MEDS: Acetaminophen 325 MG Tab PO PRN ×2 (08:44→19:59)
[2021-06-12] MEDS: Docusate Sodium 100 MG Cap PO SCH ×2 (08:44→19:58)
[2021-06-12] MEDS: Furosemide 40 MG Tab PO SCH ×2 (08:44→11:40)
[2021-06-12] MEDS: Aspirin 81 MG Tab.EC PO SCH (08:44)
[2021-06-12] MEDS: Cholecalciferol (Vitamin D3) 25 MCG Tab PO SCH (08:44)
[2021-06-12] MEDS: Potassium Chloride 20 MEQ Tab.ER PO SCH ×2 (08:44→19:57)
[2021-06-12] MEDS: Psyllium Husk Powder Sugar Free 5.85 GM Packet PO SCH (08:44)
[2021-06-12] MEDS: DULoxetine 30 MG Cap PO SCH (08:44)
[2021-06-12] MEDS: Ibuprofen 200 MG Tab PO PRN (11:40)
[2021-06-12] MEDS: Melatonin 3 MG Tab PO PRN (19:58)
[2021-06-12] MEDS: Donepezil 5 MG Tab PO SCH (19:58)
[2021-06-12] MEDS: Rosuvastatin 20 MG Tab PO SCH (19:58)
[2021-06-13] MEDS: IPRATROPIUM BROMIDE NASBOTH SCH ×3 (09:00→19:31)
[2021-06-13] MEDS: Cholecalciferol (Vitamin D3) 25 MCG Tab PO SCH (09:00)
[2021-06-13] MEDS: Furosemide 40 MG Tab PO SCH ×2 (09:00→12:37)
[2021-06-13] MEDS: Docusate Sodium 100 MG Cap PO SCH ×2 (09:00→19:30)
[2021-06-13] MEDS: Formoterol/Mometasone 200-5 MCG 13 GM Inhaler INH SCH ×2 (09:00→19:31)
[2021-06-13] MEDS: Potassium Chloride 20 MEQ Tab.ER PO SCH ×2 (09:00→19:30)
[2021-06-13] MEDS: Aspirin 81 MG Tab.EC PO SCH (09:00)
[2021-06-13] MEDS: DULoxetine 30 MG Cap PO SCH (09:00)
[2021-06-13] MEDS: Enoxaparin 40 MG/0.4 ML Syringe SUBCUT SCH (09:01)
[2021-06-13] MEDS: Psyllium Husk Powder Sugar Free 5.85 GM Packet PO SCH (09:01)
[2021-06-13] MEDS: Acetaminophen 325 MG Tab PO PRN (12:37)
[2021-06-13] MEDS: Ibuprofen 200 MG Tab PO PRN (14:11)
[2021-06-13] MEDS: Melatonin 3 MG Tab PO PRN (19:30)
[2021-06-13] MEDS: Rosuvastatin 20 MG Tab PO SCH (19:30)
[2021-06-13] MEDS: Donepezil 5 MG Tab PO SCH (19:30)
[2021-06-14] MEDS: Cholecalciferol (Vitamin D3) 25 MCG Tab PO SCH (08:33)
[2021-06-14] MEDS: Furosemide 40 MG Tab PO SCH ×2 (08:33→12:36)
[2021-06-14] MEDS: Aspirin 81 MG Tab.EC PO SCH (08:33)
[2021-06-14] MEDS: DULoxetine 30 MG Cap PO SCH (08:33)
[2021-06-14] MEDS: Formoterol/Mometasone 200-5 MCG 13 GM Inhaler INH SCH ×2 (08:33→19:23)
[2021-06-14] MEDS: Enoxaparin 40 MG/0.4 ML Syringe SUBCUT SCH (08:33)
[2021-06-14] MEDS: Potassium Chloride 20 MEQ Tab.ER PO SCH ×2 (08:33→19:23)
[2021-06-14] MEDS: Psyllium Husk Powder Sugar Free 5.85 GM Packet PO SCH (08:33)
[2021-06-14] MEDS: Docusate Sodium 100 MG Cap PO SCH ×2 (08:33→19:23)
[2021-06-14] MEDS: IPRATROPIUM BROMIDE NASBOTH SCH ×3 (08:34→19:23)
[2021-06-14] MEDS: Acetaminophen 325 MG Tab PO PRN ×2 (09:17→15:59)
[2021-06-14] MEDS: Ibuprofen 200 MG Tab PO PRN (12:36)
[2021-06-14] MEDS: Rosuvastatin 20 MG Tab PO SCH (19:23)
[2021-06-14] MEDS: Donepezil 5 MG Tab PO SCH (19:23)
[2021-06-14] MEDS: Melatonin 3 MG Tab PO PRN (19:24)
[2021-06-15] MEDS: IPRATROPIUM BROMIDE NASBOTH SCH ×3 (08:22→19:41)
[2021-06-15] MEDS: Formoterol/Mometasone 200-5 MCG 13 GM Inhaler INH SCH ×2 (08:22→19:43)
[2021-06-15] MEDS: Furosemide 40 MG Tab PO SCH ×2 (08:23→12:12)
[2021-06-15] MEDS: Docusate Sodium 100 MG Cap PO SCH ×2 (08:23→19:45)
[2021-06-15] MEDS: Ibuprofen 200 MG Tab PO PRN (08:23)
[2021-06-15] MEDS: Aspirin 81 MG Tab.EC PO SCH (08:23)
[2021-06-15] MEDS: Enoxaparin 40 MG/0.4 ML Syringe SUBCUT SCH (08:24)
[2021-06-15] MEDS: DULoxetine 30 MG Cap PO SCH (08:24)
[2021-06-15] MEDS: Potassium Chloride 20 MEQ Tab.ER PO SCH ×2 (08:24→19:41)
[2021-06-15] MEDS: Cholecalciferol (Vitamin D3) 25 MCG Tab PO SCH (08:24)
[2021-06-15] MEDS: Psyllium Husk Powder Sugar Free 5.85 GM Packet PO SCH (08:25)
[2021-06-15] MEDS: Acetaminophen 325 MG Tab PO PRN ×2 (12:12→19:43)
[2021-06-15] MEDS: Donepezil 5 MG Tab PO SCH (19:45)
[2021-06-15] MEDS: Rosuvastatin 20 MG Tab PO SCH (19:45)
[2021-06-15] MEDS: Melatonin 3 MG Tab PO PRN (19:45)
[2021-06-16 05:37] VITALS: BP 137/61; PULSE 83
[2021-06-16] MEDS: Cholecalciferol (Vitamin D3) 25 MCG Tab PO SCH (09:01)
[2021-06-16] MEDS: Potassium Chloride 20 MEQ Tab.ER PO SCH (09:01)
[2021-06-16] MEDS: Aspirin 81 MG Tab.EC PO SCH (09:02)
[2021-06-16] MEDS: Enoxaparin 40 MG/0.4 ML Syringe SUBCUT SCH (09:03)
[2021-06-16] MEDS: Psyllium Husk Powder Sugar Free 5.85 GM Packet PO SCH (09:03)
[2021-06-16] MEDS: DULoxetine 30 MG Cap PO SCH (09:03)
[2021-06-16] MEDS: Furosemide 40 MG Tab PO SCH ×2 (09:03→12:12)
[2021-06-16] MEDS: Docusate Sodium 100 MG Cap PO SCH (09:03)
[2021-06-16] MEDS: IPRATROPIUM BROMIDE NASBOTH SCH ×2 (09:04→12:12)
[2021-06-16] MEDS: Formoterol/Mometasone 200-5 MCG 13 GM Inhaler INH SCH (09:04)
[2021-06-16] MEDS: Acetaminophen 325 MG Tab PO PRN (09:04)
[2021-06-16] MEDS: Ibuprofen 200 MG Tab PO PRN (12:12)
== END 2021-06-16 13:00 | DRG 560 ==
LOC: VM.MS 15:25
PROVIDERS: ADMIT Nurse Practitioner Family; ATTEND Internal Medicine
DX: S32.512D Fracture of superior rim of left pubis, subsequent encounter for fracture with routine healing (principal); I50.32 Chronic diastolic (congestive) heart failure; W19.XXXD Unspecified fall, subsequent encounter; S32.592D Other specified fracture of left pubis, subsequent encounter for fracture with routine healing; I25.10 Atherosclerotic heart disease of native coronary artery without angina pectoris; I11.0 Hypertensive heart disease with heart failure; J44.9 Chronic obstructive pulmonary disease, unspecified; R32 Unspecified urinary incontinence; N32.81 Overactive bladder; F03.90 Unspecified dementia, unspecified severity, without behavioral disturbance, psychotic disturbance, mood disturbance, and anxiety; M81.0 Age-related osteoporosis without current pathological fracture; D64.9 Anemia, unspecified; Z96.641 Presence of right artificial hip joint; E87.6 Hypokalemia; E66.9 Obesity, unspecified; F43.20 Adjustment disorder, unspecified; Z79.899 Other long term (current) drug therapy; Z79.82 Long term (current) use of aspirin; Z95.5 Presence of coronary angioplasty implant and graft; Z88.6 Allergy status to analgesic agent; Z88.8 Allergy status to other drugs, medicaments and biological substances; Z86.19 Personal history of other infectious and parasitic diseases; F32.A Depression, unspecified; F41.9 Anxiety disorder, unspecified; Z20.822 Contact with and (suspected) exposure to COVID-19
CPT/HCPCS: 36415; 80048; 83735; 85025; 94760; 97110-GO; 97110-GP; 97116-GP; 97530-GP; A9270-GY; J1650; J7620-GY; U0002

== ENCOUNTER 2021-08-11 11:55 | Inpatient (IN) | payer MEDICARE, OTHER ==
[2021-08-11] MEDS ORDERED: Ondansetron 4 MG Tab.DIS PO PRN (13:05)
[2021-08-11] MEDS ORDERED: Acetaminophen 325 MG Tab PO PRN ×2 (13:05→18:17)
[2021-08-11] MEDS: Sodium Chloride 0.9% 1,000 ML IV SCH ×2 (13:10→23:18)
[2021-08-11 13:28] LABS: CHLORIDE,CL 96 mmol/L (98-107); SODIUM,NA 141 mmol/L (136-145)
[2021-08-11 13:29] LABS: ANION GAP 15.2 mmol/L (5-15)
[2021-08-11] MEDS ORDERED: dexAMETHasone 2 MG, dexAMETHasone 4 MG PO SCH ×2 (13:30)
[2021-08-11] MEDS ORDERED: REMDESIVIR 200 MG in Sodium Chloride 0.9% 250 ML IV ONE (15:30)
[2021-08-11] MEDS ORDERED: Ondansetron 4 MG/2 ML SDV IVPUSH PRN (15:32)
[2021-08-11] MEDS: cefTRIAXone 2 GM Vial IVPUSH SCH (16:15)
[2021-08-11] MEDS: Dexamethasone 4 MG/ML SDV IVPUSH SCH (16:18)
[2021-08-11] MEDS ORDERED: Potassium Chloride Riders 20 MEQ in Premix Bag 1 BAG IV ONE (17:00)
[2021-08-11] MEDS ORDERED: Melatonin 3 MG Tab PO PRN (18:17)
[2021-08-11] MEDS ORDERED: Bisacodyl 5 MG Tab PO PRN (18:17)
[2021-08-11] MEDS ORDERED: Albuterol HFA 18 Gm Inhaler INH PRN (18:17)
[2021-08-11] MEDS ORDERED: Ibuprofen 200 MG Tab PO PRN (18:17)
[2021-08-11] MEDS: Potassium Chloride 20 MEQ Tab.ER PO SCH (20:01)
[2021-08-11] MEDS: Docusate Sodium 100 MG Cap PO SCH (20:01)
[2021-08-11] MEDS: Formoterol/Mometasone 200-5 MCG 13 GM Inhaler INH SCH (20:01)
[2021-08-11] MEDS: Donepezil 5 MG Tab PO SCH (20:02)
[2021-08-11] MEDS: Rosuvastatin 20 MG Tab PO SCH (20:02)
[2021-08-11] MEDS ORDERED: Enoxaparin 40 MG/0.4 ML Syringe SUBCUT SCH (21:00)
[2021-08-12] MEDS: Sodium Chloride 0.9% 1,000 ML IV SCH (05:07)
[2021-08-12 07:00] LABS: CHLORIDE,CL 106 mmol/L (98-107); SODIUM,NA 146 mmol/L (136-145)
[2021-08-12 07:01] LABS: ANION GAP 12.1 mmol/L (5-15)
[2021-08-12] MEDS ORDERED: Potassium Chloride 10 MEQ Tab.ER PO SCH (09:00)
[2021-08-12] MEDS: Docusate Sodium 100 MG Cap PO SCH ×2 (09:06→20:36)
[2021-08-12] MEDS: Dexamethasone 4 MG/ML SDV IVPUSH SCH (09:06)
[2021-08-12] MEDS: Potassium Chloride 20 MEQ Tab.ER PO SCH ×2 (09:06→20:36)
[2021-08-12] MEDS: Cholecalciferol (Vitamin D3) 25 MCG Tab PO SCH (09:06)
[2021-08-12] MEDS: DULoxetine 30 MG Cap PO SCH (09:07)
[2021-08-12] MEDS: Aspirin 81 MG Tab.EC PO SCH (09:07)
[2021-08-12] MEDS: Furosemide 40 MG Tab PO SCH ×2 (09:07→13:28)
[2021-08-12] MEDS ORDERED: Mineral Oil 133 ML BOTTLE RECTAL PRN (09:31)
[2021-08-12] MEDS: Glycopyrrolate 1 MG Tab PO SCH ×2 (09:42→20:36)
[2021-08-12] MEDS: Formoterol/Mometasone 200-5 MCG 13 GM Inhaler INH SCH ×2 (09:44→20:40)
[2021-08-12] MEDS ORDERED: Bisacodyl 5 MG Tab PO ONE (09:45)
[2021-08-12] MEDS ORDERED: Furosemide 20 MG/2 ML VIAL IV ONE (13:00)
[2021-08-12] MEDS ORDERED: Potassium Bicarbonate/Cit Ac 10 MEQ Effervescent Tab PO ONE (13:00)
[2021-08-12] MEDS: cefTRIAXone 2 GM Vial IVPUSH SCH (13:28)
[2021-08-12] MEDS: REMDESIVIR 100 MG in Sodium Chloride 0.9% 100 ML IV SCH (13:30)
[2021-08-12] MEDS ORDERED: Albuterol 0.083% 2.5 MG/3 ML Neb Soln NEB PRN (14:00)
[2021-08-12] MEDS: Albuterol/Ipratropium 3.0-0.5 MG/3 ML Neb Soln NEB SCH ×2 (14:43→23:07)
[2021-08-12] MEDS: Enoxaparin 40 MG/0.4 ML Syringe SUBCUT SCH (20:35)
[2021-08-12] MEDS: Sodium Chloride 0.9% 10 ML Syringe FLUSH PRN (20:35)
[2021-08-12] MEDS: Donepezil 5 MG Tab PO SCH (20:36)
[2021-08-12] MEDS: Rosuvastatin 20 MG Tab PO SCH (20:37)
[2021-08-12] MEDS ORDERED: Enoxaparin 30 MG/0.3 ML Syringe SUBCUT SCH (21:00)
[2021-08-13 06:58] LABS: CHLORIDE,CL 105 mmol/L (98-107); SODIUM,NA 148 mmol/L (136-145)
[2021-08-13 06:59] LABS: ANION GAP 10.7 mmol/L (5-15)
[2021-08-13] MEDS: Albuterol/Ipratropium 3.0-0.5 MG/3 ML Neb Soln NEB SCH ×3 (07:06→23:04)
[2021-08-13] MEDS ORDERED: Sodium Chloride 0.9% 1,000 ML IV SCH (07:30)
[2021-08-13] MEDS ORDERED: Bisacodyl 10 MG Supp RECTAL ONE (08:23)
[2021-08-13] MEDS ORDERED: Potassium Chloride 20 MEQ Tab.ER PO SCH (09:00)
[2021-08-13] MEDS: Potassium Chloride Riders 10 MEQ in Premix Bag 1 BAG IV SCH ×3 (09:56→12:21)
[2021-08-13] MEDS: DULoxetine 30 MG Cap PO SCH (09:58)
[2021-08-13] MEDS: Docusate Sodium 100 MG Cap PO SCH ×2 (09:58→20:43)
[2021-08-13] MEDS: Aspirin 81 MG Tab.EC PO SCH (09:58)
[2021-08-13] MEDS: Cholecalciferol (Vitamin D3) 25 MCG Tab PO SCH (09:58)
[2021-08-13] MEDS: Potassium Chloride 20 MEQ Tab.ER PO SCH ×3 (09:58→20:44)
[2021-08-13] MEDS: Glycopyrrolate 1 MG Tab PO SCH ×2 (09:59→20:43)
[2021-08-13] MEDS: Furosemide 40 MG Tab PO SCH ×2 (09:59→13:47)
[2021-08-13] MEDS: Dexamethasone 4 MG/ML SDV IVPUSH SCH (10:00)
[2021-08-13] MEDS: Formoterol/Mometasone 200-5 MCG 13 GM Inhaler INH SCH ×2 (10:18→20:43)
[2021-08-13] MEDS: cefTRIAXone 2 GM Vial IVPUSH SCH (13:47)
[2021-08-13] MEDS: REMDESIVIR 100 MG in Sodium Chloride 0.9% 100 ML IV SCH (13:47)
[2021-08-13] MEDS: Enoxaparin 40 MG/0.4 ML Syringe SUBCUT SCH (20:43)
[2021-08-13] MEDS: Donepezil 5 MG Tab PO SCH (20:43)
[2021-08-13] MEDS: Rosuvastatin 20 MG Tab PO SCH (20:43)
[2021-08-13] MEDS: Sodium Chloride 0.9% 10 ML Syringe FLUSH PRN (20:44)
[2021-08-14] MEDS: Albuterol/Ipratropium 3.0-0.5 MG/3 ML Neb Soln NEB SCH ×4 (07:18→23:17)
[2021-08-14 07:40] LABS: CHLORIDE,CL 108 mmol/L (98-107); SODIUM,NA 148 mmol/L (136-145)
[2021-08-14] MEDS: DULoxetine 30 MG Cap PO SCH (08:01)
[2021-08-14] MEDS: Potassium Chloride 20 MEQ Tab.ER PO SCH (08:01)
[2021-08-14] MEDS: Docusate Sodium 100 MG Cap PO SCH (08:02)
[2021-08-14] MEDS: Cholecalciferol (Vitamin D3) 25 MCG Tab PO SCH (08:02)
[2021-08-14] MEDS: Aspirin 81 MG Tab.EC PO SCH (08:02)
[2021-08-14] MEDS: Glycopyrrolate 1 MG Tab PO SCH ×2 (08:03→20:27)
[2021-08-14] MEDS: Furosemide 40 MG Tab PO SCH (08:04)
[2021-08-14] MEDS: Dexamethasone 4 MG/ML SDV IVPUSH SCH (08:18)
[2021-08-14] MEDS: Formoterol/Mometasone 200-5 MCG 13 GM Inhaler INH SCH ×2 (08:19→20:28)
[2021-08-14] MEDS ORDERED: Piperacillin/Tazobactam 3.375 GM in Sodium Chloride 0.9% 100 ML IV SCH (09:00)
[2021-08-14] MEDS ORDERED: Potassium Chloride 20 MEQ Tab.ER PO SCH (09:00)
[2021-08-14] MEDS: Polyethylene Glycol 3350 Powder 17 GM Packet PO SCH (11:44)
[2021-08-14] MEDS: REMDESIVIR 100 MG in Sodium Chloride 0.9% 100 ML IV SCH (12:55)
[2021-08-14] MEDS: Piperacillin/Tazobactam 3.375 GM in Sodium Chloride 0.9% 100 ML IV SCH ×2 (14:05→20:27)
[2021-08-14] MEDS: Enoxaparin 40 MG/0.4 ML Syringe SUBCUT SCH (20:26)
[2021-08-14] MEDS: Rosuvastatin 20 MG Tab PO SCH (20:27)
[2021-08-14] MEDS: Donepezil 5 MG Tab PO SCH (20:27)
[2021-08-15] MEDS: Piperacillin/Tazobactam 3.375 GM in Sodium Chloride 0.9% 100 ML IV SCH ×3 (04:59→21:37)
[2021-08-15] MEDS: Albuterol/Ipratropium 3.0-0.5 MG/3 ML Neb Soln NEB SCH ×3 (06:06→23:15)
[2021-08-15 07:00] LABS: ANION GAP 12.1 mmol/L (5-15)
[2021-08-15] MEDS ORDERED: Acetaminophen 325 MG Supp RECTAL PRN (08:45)
[2021-08-15] MEDS ORDERED: Furosemide 40 MG Tab PO SCH (09:00)
[2021-08-15] MEDS ORDERED: Hyoscyamine 0.125 MG/ML Bottle SL PRN (09:48)
[2021-08-15] MEDS: Aspirin 300 MG Supp RECTAL SCH (10:35)
[2021-08-15] MEDS: DULoxetine 30 MG Cap PO SCH (11:07)
[2021-08-15] MEDS: Dexamethasone 4 MG/ML SDV IVPUSH SCH (11:08)
[2021-08-15] MEDS: Polyethylene Glycol 3350 Powder 17 GM Packet PO SCH (11:08)
[2021-08-15] MEDS: REMDESIVIR 100 MG in Sodium Chloride 0.9% 100 ML IV SCH (13:00)
[2021-08-15] MEDS: Donepezil 5 MG Tab PO SCH (20:42)
[2021-08-15] MEDS: Rosuvastatin 20 MG Tab PO SCH (20:43)
[2021-08-15] MEDS: Enoxaparin 40 MG/0.4 ML Syringe SUBCUT SCH (21:36)
[2021-08-16] MEDS: Piperacillin/Tazobactam 3.375 GM in Sodium Chloride 0.9% 100 ML IV SCH ×2 (05:13→12:43)
[2021-08-16 07:50] LABS: CHLORIDE,CL 115 mmol/L (98-107); SODIUM,NA 155 mmol/L (136-145)
[2021-08-16 07:51] LABS: ANION GAP 11.2 mmol/L (5-15)
[2021-08-16] MEDS ORDERED: Potassium Chloride Riders 20 MEQ in Premix Bag 1 BAG IV ONE (09:05)
[2021-08-16] MEDS: Albuterol/Ipratropium 3.0-0.5 MG/3 ML Neb Soln NEB SCH (09:26)
[2021-08-16] MEDS: DULoxetine 30 MG Cap PO SCH (09:26)
[2021-08-16] MEDS: Polyethylene Glycol 3350 Powder 17 GM Packet PO SCH (09:27)
[2021-08-16] MEDS: Aspirin 300 MG Supp RECTAL SCH ×2 (09:40→10:34)
[2021-08-16] MEDS: Dexamethasone 4 MG/ML SDV IVPUSH SCH (10:34)
[2021-08-16 10:37] VITALS: BP 129/78
[2021-08-16 13:54] VITALS: PULSE 134
[2021-08-16] MEDS ORDERED: Lidocaine 2% Viscous Solution 15 ML UD PO PRN (14:17)
[2021-08-16] MEDS ORDERED: Morphine 10 MG/ML SDV IV PRN (14:17)
[2021-08-16] MEDS ORDERED: Menthol/Zinc Oxide Ointment 3.5 GM Tube TOP PRN (14:17)
[2021-08-16] MEDS ORDERED: LORazepam 2 MG/ML SDV IV PRN (14:17)
[2021-08-16] MEDS: Atropine 1% Ophth Soln 5 ML BOTTLE SL PRN ×2 (15:16→16:59)
[2021-08-16] MEDS: Morphine Oral Concentrate 20 MG/ML 30 ML Bottle BUCCAL PRN ×4 (16:37→22:06)
[2021-08-16] MEDS ORDERED: LORazepam Conc Solution 2 MG/ML 30 ML Bottle BUCCAL PRN (17:54)
[2021-08-17] MEDS ORDERED: LORazepam 2 MG/ML SDV SUBCUT PRN (08:56)
[2021-08-17] MEDS ORDERED: Ondansetron 4 MG Tab.DIS PO PRN (08:57)
[2021-08-17] MEDS ORDERED: Morphine 2 MG/ML SYRINGE SUBCUT PRN (08:58)
[2021-08-17] MEDS: Morphine 10 MG/ML SDV SUBCUT PRN ×4 (10:56→18:17)
== END 2021-08-17 20:10 | disposition expired | DRG 177 ==
LOC: VM.MS 11:58
PROVIDERS: ADMIT Internal Medicine; ATTEND Internal Medicine
PROC: XW033E5 Introduction of Remdesivir Anti-infective into Peripheral Vein, Percutaneous Approach, New Technology Group 5 (ICD-10-PCS; principal; 2021-08-11)
PROC: 3E0333Z Introduction of Anti-inflammatory into Peripheral Vein, Percutaneous Approach (ICD-10-PCS; 2021-08-11)
PROC: 8E0ZXY6 Isolation (ICD-10-PCS; 2021-08-11)
DX: U07.1 COVID-19 (principal); J96.01 Acute respiratory failure with hypoxia; J12.82 Pneumonia due to coronavirus disease 2019; J69.0 Pneumonitis due to inhalation of food and vomit; I50.33 Acute on chronic diastolic (congestive) heart failure; J44.1 Chronic obstructive pulmonary disease with (acute) exacerbation; N17.9 Acute kidney failure, unspecified; E87.0 Hyperosmolality and hypernatremia; J44.0 Chronic obstructive pulmonary disease with (acute) lower respiratory infection; E86.0 Dehydration; Z66 Do not resuscitate; Z51.5 Encounter for palliative care; R73.9 Hyperglycemia, unspecified; T38.0X5A Adverse effect of glucocorticoids and synthetic analogues, initial encounter; D64.9 Anemia, unspecified; I25.10 Atherosclerotic heart disease of native coronary artery without angina pectoris; I11.0 Hypertensive heart disease with heart failure; R15.9 Full incontinence of feces; R32 Unspecified urinary incontinence; N32.81 Overactive bladder; F03.90 Unspecified dementia, unspecified severity, without behavioral disturbance, psychotic disturbance, mood disturbance, and anxiety; M81.0 Age-related osteoporosis without current pathological fracture; R62.7 Adult failure to thrive; E87.6 Hypokalemia; K59.00 Constipation, unspecified; E78.5 Hyperlipidemia, unspecified; R13.10 Dysphagia, unspecified; R53.1 Weakness; Z96.643 Presence of artificial hip joint, bilateral; Z88.6 Allergy status to analgesic agent; Z88.5 Allergy status to narcotic agent; Z79.899 Other long term (current) drug therapy; Z79.82 Long term (current) use of aspirin; Z88.8 Allergy status to other drugs, medicaments and biological substances; Z95.5 Presence of coronary angioplasty implant and graft; Z98.890 Other specified postprocedural states; Z86.19 Personal history of other infectious and parasitic diseases; Z79.51 Long term (current) use of inhaled steroids
CPT/HCPCS: 36415; 71045; 71250; 74176; 80048; 80053; 82728; 82803; 82947; 83735; 83880; 84145; 85025; 86140; 92526-GN; 92610-GN; 94640; 94760; 97110-GP; 97116-GP; 97163-GP; 97530-GP; A9270-GY; J0696; J1100; J1650; J1940; J2270; J2405; J2543; J3480; J3490; J7030; J7050; J7620-GY